=== PATIENT | female | born 1980 | race Caucasian/White ===

== ENCOUNTER → 2018-01-29 08:20 | Outpatient (CLI) | payer BC, SELFPAY ==
--- NOTE | 2018-01-29 08:22 | BI_ITS ---
MAMMOGRAPHY - BILATERAL DIAGNOSTIC REASON FOR EXAM: Female, 37 years old. Bilateral clear breast discharge. Recent right needle biopsy. PERTINENT HISTORY: Grandmother with breast cancer. TECHNIQUE: Digital bilateral breast german (3D mammographic acquisition) in the CC and MLO projections. 2-D mediolateral oblique (MLO) and craniocaudad (CC) views of both breasts were obtained. CAD: Full Field Digital Mammography with Computer Added Detection was performed. COMPARISON: Comparison is made with prior examination dated August 20, 2017 and November 28, 2016. FINDINGS: Breast Composition: There are scattered areas of fibroglandular density. Stable 6.6 mm x 7 mm well-defined nodule in the retroareolar region of the right breast. Since prior study, a tissue clip marker is seen within it in keeping with prior biopsy. There are no dominant masses or suspicious calcifications. No other significant abnormalities are identified. There has been no significant change since the prior study. BI/DIAG MAMM W/CAD, BILAT IMPRESSION: Stable bilateral diagnostic mammogram. One year follow-up recommended. (A) ASSESSMENT CATEGORY: BIRADS Category 2: Benign. A letter regarding these results will be sent to the patient by the facility within 30 days. Approximately 10% of breast cancers are not detected by mammography. A normal mammogram should not delay biopsy of a clinically suspicious abnormality. Electronically Signed: Joaquin Hartman MD at 13:48 EDT Tel [phone], Service support ,
--- NOTE | 2018-01-29 09:10 | US_ITS ---
STUDY: ULTRASOUND BREAST - RIGHT REASON FOR EXAM: Female, 37 years old. Right breast discharge. TECHNIQUE: Axial and longitudinal images of the RIGHT breast were performed with a high resolution ultrasound transducer. COMPARISON: Comparison is made with prior sonogram of the right breast dated August 20, 2017. Comparison is also made with prior mammogram done earlier in the day. FINDINGS: RIGHT Breast: There is a stable 8 mm x 5 mm x 9 mm well-defined hypoechoic nodule in the retroareolar region of the breast. This most likely represents a small fibroadenoma or complex cyst. This is unchanged. IMPRESSION: Stable examination. ASSESSMENT CATEGORY: BIRADS Category 2: Benign. A letter regarding these results will be sent to the patient by the facility within 30 days. Electronically Signed: Joaquin Hartman MD at 13:11 EDT Tel [phone], Service support , STUDY: ULTRASOUND BREAST - LEFT REASON FOR EXAM: Female, 37 years old. Left breast discharge. TECHNIQUE: Axial and longitudinal images of the LEFT breast were performed with a high resolution ultrasound transducer. COMPARISON: Comparison is made with prior mammogram done earlier in the day. FINDINGS: LEFT Breast: There is evidence of mild left retroareolar ductal dilatation. US/Breast Limited Unilateral IMPRESSION: Mild left retroareolar ductal dilatation. ASSESSMENT CATEGORY: BIRADS Category 2: Benign. A letter regarding these results will be sent to the patient by the facility within 30 days. Electronically Signed: Joaquin Hartman MD at 13:12 EDT Tel [phone], Service support ,
== END ==
LOC: OPBI 08:20
PROVIDERS: Family Provider Student in an Organized Health Care Education/Training Program; PCP Student in an Organized Health Care Education/Training Program; Visit Provider Surgery
DX: N64.52 Nipple discharge (principal); R92.8 Other abnormal and inconclusive findings on diagnostic imaging of breast
CPT/HCPCS: 76642; 77062; 77066; G0279

== ENCOUNTER → 2019-02-27 08:07 | Outpatient (CLI) | payer BC, SELFPAY ==
--- NOTE | 2019-02-27 08:18 | BI_ITS ---
MAMMOGRAPHY - BILATERAL SCREENING 3-D TOMOSYNTHESIS REASON FOR EXAM: Female, 38 years old. Bilateral Screening 3-D tomosynthesis PERTINENT HISTORY: Paternal grandmother of breast cancer at age 70-80. Maternal grandmother with breast cancer at age 70-80. Status post right needle biopsy in 2016 and left stereotactic biopsy in 2013 benign.. TECHNIQUE: 2-D mammograms and 3-D Tomosynthesis of the breast (s) were performed. CAD was performed. COMPARISON: January 29, 2018. FINDINGS: The breast composition is composed of scattered fibroglandular density. Scattered benign calcifications are seen. No dense spiculated masses or suspicious microcalcifications are identified. No architectural distortion is identified. There is no skin thickening or retraction. There is a stable, 9.4 mm well-circumscribed nodule within the anterior right breast containing a biopsy clip. A biopsy clip is seen within the region of stable architectural distortion within the superficial left upper lateral breast. These findings appear stable. There has been no significant change since the prior study. BI/SCREENING MAMM (CAD), BILAT IMPRESSION: No mammographic signs of malignancy. Routine yearly mammograms recommended. ASSESSMENT CATEGORY: BIRADS Category 2: Benign. A letter regarding these results will be sent to the patient by the facility within 30 days. FOLLOW UP RECOMMENDATION: Yearly follow up mammogram recommended. (A) Approximately 10% of breast cancers are not detected by mammography. A normal mammogram should not delay biopsy of a clinically suspicious abnormality. Electronically Signed: Ti Olivia MD at 15:11 EDT , Service support ,
== END ==
PROVIDERS: Family Provider Student in an Organized Health Care Education/Training Program; PCP Student in an Organized Health Care Education/Training Program; Referring Provider Obstetrics & Gynecology; Visit Provider Obstetrics & Gynecology
DX: Z12.31 Encounter for screening mammogram for malignant neoplasm of breast (principal); N60.89 Other benign mammary dysplasias of unspecified breast
CPT/HCPCS: 77063; 77067

== ENCOUNTER → 2020-03-22 12:18 | Outpatient (CLI) | payer BC, SELFPAY ==
--- NOTE | 2020-03-22 12:20 | BI_ITS ---
MAMMOGRAPHY - BILATERAL SCREENING REASON FOR EXAM: Female, 39 years old. Routine annual screening examination. PERTINENT HISTORY: Grandmother with breast cancer. Prior left stereotactic breast biopsy and right needle biopsy. TECHNIQUE: Digital bilateral breast oniel (3D mammographic acquisition) in the CC and MLO projections. 2-D mediolateral oblique (MLO) and craniocaudad (CC) views of both breasts were obtained. CAD: Full Field Digital Mammography with Computer Added Detection was performed. COMPARISON: Comparison is made with prior examination dated February 27, 2019 and January 30, 2008. FINDINGS: Breast Composition: There are scattered areas of fibroglandular density. There are no dominant masses or suspicious calcifications. A tissue clip marker is seen in the upper lateral aspect of the left breast. A tissue clip marker is also seen within a 7 mm nodular density in the medial retroareolar region of the right breast. No other significant abnormalities are identified. There has been no significant change since the prior study. BI/SCREEN MAMM (CAD) W/ONIEL BILAT IMPRESSION: Stable bilateral screening mammogram. Yearly follow-up mammogram recommended. (A) ASSESSMENT CATEGORY: BIRADS Category 2: Benign. A letter regarding these results will be sent to the patient by the facility within 30 days. Approximately 10% of breast cancers are not detected by mammography. A normal mammogram should not delay biopsy of a clinically suspicious abnormality. [id number] Electronically Signed: Joaquin Hartman, at 13:40 EDT , Service support ,
== END ==
PROVIDERS: PCP Student in an Organized Health Care Education/Training Program; Referring Provider Student in an Organized Health Care Education/Training Program; Visit Provider Student in an Organized Health Care Education/Training Program
DX: Z12.31 Encounter for screening mammogram for malignant neoplasm of breast (principal); Z80.3 Family history of malignant neoplasm of breast
CPT/HCPCS: 77063; 77067

== ENCOUNTER → 2021-03-27 08:42 | Outpatient (CLI) | payer BC, SELFPAY ==
--- NOTE | 2021-03-27 08:47 | BI_ITS ---
MAMMOGRAPHY - BILATERAL SCREENING REASON FOR EXAM: Female, 40 years old. Routine annual screening examination. PERTINENT HISTORY: Grandmother with breast cancer. Remote left stereotactic breast biopsy. TECHNIQUE: Digital bilateral breast oniel (3D mammographic acquisition) in the CC and MLO projections. 2-D mediolateral oblique (MLO) and craniocaudad (CC) views of both breasts were obtained. CAD: Full Field Digital Mammography with Computer Added Detection was performed. COMPARISON: Comparison is made with prior study dated 03/22/2020 and 02/27/2019. FINDINGS: Breast Composition: There are scattered areas of fibroglandular density. There are no dominant masses or suspicious calcifications. A tissue clip marker is once again seen in the upper lateral aspect of the left breast. A tissue clip marker is also seen within a 7 mm well-defined nodule in the medial retroareolar region of the right breast.. Stable benign appearing bilateral axillary nodes. No other significant abnormalities are identified. There has been no significant change since the prior study. BI/SCRN MAMM (CAD)W/ONIEL BILAT IMPRESSION: Stable bilateral screening mammogram. Yearly follow-up mammogram recommended. (A) ASSESSMENT CATEGORY: BIRADS Category 2: Benign. A letter regarding these results will be sent to the patient by the facility within 30 days. Approximately 10% of breast cancers are not detected by mammography. A normal mammogram should not delay biopsy of a clinically suspicious abnormality. [id number] Electronically Signed: Joaquin Hartman MD at 11:25 EDT , Service support ,
== END ==
PROVIDERS: PCP Student in an Organized Health Care Education/Training Program; Referring Provider Obstetrics & Gynecology; Visit Provider Obstetrics & Gynecology
DX: Z12.31 Encounter for screening mammogram for malignant neoplasm of breast (principal)
CPT/HCPCS: 77063; 77067

== ENCOUNTER → 2021-03-28 08:44 | Outpatient (CLI) | payer BC, SELFPAY ==
--- NOTE | 2021-03-28 08:46 | US_ITS ---
STUDY: ULTRASOUND BREAST - RIGHT REASON FOR EXAM: Female, 40 years old. Palpable lump in the right breast. TECHNIQUE: Axial and longitudinal images of the RIGHT breast were performed with a high resolution ultrasound transducer. # OF IMAGES: 36 COMPARISON: Comparison is made with prior ultrasound the right breast dated 01/29/2018 and prior mammogram dated 03/27/2021. FINDINGS: RIGHT Breast: The upper outer quadrant of the right breast was examined by ultrasound. No sonographic abnormality is seen. US/Breast Limited Unilateral IMPRESSION: No sonographic abnormality is seen. ASSESSMENT CATEGORY: BIRADS Category 1: Negative. A letter regarding these results will be sent to the patient by the facility within 30 days. Electronically Signed: Joaquin Hartman MD at 14:32 EDT , Service support ,
== END ==
PROVIDERS: PCP Student in an Organized Health Care Education/Training Program; Visit Provider Obstetrics & Gynecology
DX: N63.10 Unspecified lump in the right breast, unspecified quadrant (principal)
CPT/HCPCS: 76642

== ENCOUNTER → 2022-03-19 | Outpatient (CLI) | payer BC, SELFPAY ==
[2022-03-19] MEDS: 0.9% NaCl Peripheral Flush Adult/Peds IV (14:12)
[2022-03-19] MEDS: 0.9% NaCl IVPB Med Flush (250 mL) 15 ML IV (14:26)
[2022-03-19 14:28] VITALS: BP 147/82; PULSE 93; RESP 12; TEMP 36.3; O2SAT 97; BMI 50.0
[2022-03-19 15:27] VITALS: BP 127/70; PULSE 86; RESP 16; TEMP 36.5
== END | disposition home or self-care (01) ==
LOC: MEDOUTP 14:03
PROVIDERS: PCP Student in an Organized Health Care Education/Training Program; Referring Provider Obstetrics & Gynecology; Visit Provider Obstetrics & Gynecology
DX: D50.8 Other iron deficiency anemias (principal); N92.6 Irregular menstruation, unspecified
CPT/HCPCS: 96365; J1756; J7050; A4216

== ENCOUNTER → 2022-03-21 | Outpatient (CLI) | payer BC, SELFPAY ==
[2022-03-21 14:40] VITALS: BP 142/90; PULSE 111; RESP 16; TEMP 36; O2SAT 97; BMI 50.8
[2022-03-21] MEDS: 0.9% NaCl IVPB Med Flush (250 mL) 15 ML IV (15:03)
[2022-03-21] MEDS: 0.9% NaCl Peripheral Flush Adult/Peds IV (15:03)
== END | disposition home or self-care (01) ==
LOC: MEDOUTP 14:30
PROVIDERS: PCP Student in an Organized Health Care Education/Training Program; Referring Provider Obstetrics & Gynecology; Visit Provider Obstetrics & Gynecology
DX: D50.8 Other iron deficiency anemias (principal); N92.6 Irregular menstruation, unspecified
CPT/HCPCS: 96365; J1756; J7050; A4216

== ENCOUNTER → 2022-03-26 | Outpatient (CLI) | payer BC, SELFPAY ==
[2022-03-26] MEDS: 0.9% NaCl IVPB Med Flush (250 mL) 15 ML IV (14:49)
[2022-03-26] MEDS: 0.9% NaCl Peripheral Flush Adult/Peds IV (14:50)
[2022-03-26 14:51] VITALS: BP 136/79; PULSE 94; RESP 12; TEMP 36.6; O2SAT 100; BMI 50.8
[2022-03-26 15:23] VITALS: BP 135/71; PULSE 82; RESP 14; TEMP 36.2; O2SAT 99
== END | disposition home or self-care (01) ==
LOC: MEDOUTP 14:26
PROVIDERS: PCP Student in an Organized Health Care Education/Training Program; Referring Provider Obstetrics & Gynecology; Visit Provider Obstetrics & Gynecology
DX: D50.8 Other iron deficiency anemias (principal); N92.6 Irregular menstruation, unspecified
CPT/HCPCS: 96365; J1756; J7050; A4216

== ENCOUNTER → 2022-03-28 | Outpatient (CLI) | payer BC, SELFPAY ==
[2022-03-28 15:27] VITALS: BP 133/81; PULSE 50; RESP 14; TEMP 36.7; O2SAT 97; BMI 50.8
[2022-03-28] MEDS: 0.9% NaCl IVPB Med Flush (250 mL) 15 ML IV (15:29)
[2022-03-28] MEDS: 0.9% NaCl Peripheral Flush Adult/Peds IV (15:30)
[2022-03-28 16:07] VITALS: BP 128/66; PULSE 80; RESP 14; TEMP 36.6; O2SAT 98
== END | disposition home or self-care (01) ==
LOC: MEDOUTP 15:15
PROVIDERS: PCP Student in an Organized Health Care Education/Training Program; Referring Provider Obstetrics & Gynecology; Visit Provider Obstetrics & Gynecology
DX: D50.8 Other iron deficiency anemias (principal); N92.6 Irregular menstruation, unspecified
CPT/HCPCS: 96365; J1756; J7050; A4216

== ENCOUNTER → 2022-04-02 | Outpatient (CLI) | payer BC, SELFPAY ==
[2022-04-02 14:56] VITALS: BP 132/83; PULSE 84; RESP 16; TEMP 36.1; O2SAT 99; BMI 50.8
[2022-04-02] MEDS: 0.9% NaCl Peripheral Flush Adult/Peds IV (14:59)
[2022-04-02] MEDS: 0.9% NaCl IVPB Med Flush (250 mL) 15 ML IV (15:00)
[2022-04-02 15:37] VITALS: BP 134/65; PULSE 82; TEMP 36.2
== END | disposition home or self-care (01) ==
LOC: MEDOUTP 14:27
PROVIDERS: PCP Student in an Organized Health Care Education/Training Program; Referring Provider Obstetrics & Gynecology; Visit Provider Obstetrics & Gynecology
DX: D50.8 Other iron deficiency anemias (principal); N92.6 Irregular menstruation, unspecified
CPT/HCPCS: 96365; J1756; J7050; A4216

== ENCOUNTER 2022-08-08 12:20 | Day surgery (SDC) | payer BC, SELFPAY ==
--- NOTE | 2022-07-30 15:21 | PCM.HP.BLA ---
History and Physical Date of Admission: 08/08/22 Pre-Op History and Physical ? HPI: The patient is a 41 year old female presenting for pre-operative visit. She is scheduled for Hysteroscopy D&C and polypectomy with symphion and insertion of Mirena IUD, for AUB, Anemia, endometrial polyp on 08/08/22. Procedure discussed along with risks, benefits and complications. Other alternatives discussed for management. Consent form signed? Yes. ? ? PAST MEDICAL HISTORY PAST MEDICAL HISTORY Diagnosis Date ? Anemia ? ? iron deficiency ? MVP (mitral valve prolapse) ? ? POTS (postural orthostatic tachycardia syndrome) ? ? Psoriasis ? ? Vitamin D deficiency ? ? ? PAST SURGICAL HISTORY PAST SURGICAL HISTORY Procedure Laterality Date ? BX BREAST W/DEVICE 1ST LESION STEREOTACTIC GUID ? 09/21/14 ? left ? PAST SURGICAL HISTORY OF ? 1991 ? Ovarion abscess and removal right side ? PAST SURGICAL HISTORY OF ? 1996, 1999 ? right shoulder repair for dislocation ? ? ? CURRENT MEDICATIONS Current Outpatient Medications Medication Sig Dispense Refill ? Cholecalciferol, Vitamin D3, 50 mcg (2,000 unit) cap Take 1 capsule by mouth once daily. 30 capsule 5 ? Ferrous Sulfate 325 mg (65 mg iron) tablet Take 1 tablet by mouth twice daily with meals. ? 0 ? triamcinolone acetonide (KENALOG) 0.5 % cream Apply 1 application to affected area twice daily. For rash/itching. Apply sparingly. Avoid face/skin fold. 15 g 2 ? MULTI-VITAMIN ORAL Take by mouth. ? ? ? omega-3 fatty acids 1,000 mg cap Take 2 g by mouth twice daily. ? ? ? Current Facility-Administered Medications Medication Dose Route Frequency Provider Last Rate Last Admin ? iron sucrose 200 mg injection (VENOFER) 200 mg INTRAVENOUS 2/WK Jaylene Robbins MD ? ? ALLERGIES: Prilosec [Omeprazole Magnesium] ? PERSONAL HISTORY: SOCIAL HISTORY Social History ? Tobacco Use ? Smoking status: Former ? ? Types: Cigarettes ? ? Quit date: 09/16/2008 ? ? Years since quittin.8 ? Smokeless tobacco: Never ? Tobacco comments: ? ? had been rare smoker Vaping Use ? Vaping Use: Never used Substance Use Topics ? Alcohol use: Yes ? ? Comment: Occasionally ? Drug use: No ? FAMILY HISTORY: FAMILY HISTORY FAMILY HISTORY Problem Relation Age of Onset ? Multiple Sclerosis Mother ? ? Breast Cancer Maternal Grandmother 80 ? Skin Cancer Maternal Grandmother 50 ? Colon Cancer Maternal Grandfather 60 ? COPD Maternal Grandfather ? ? Breast Cancer Paternal Grandmother ? ? at 50 or 60; then again at 60 or 70 ? Heart Paternal Grandfather ? ? ? REVIEW OF SYMPTOMS: negative except as noted above PHYSICAL EXAMINATION: ? VITALS: Blood pressure 120/76, height 5' 6 (1.676 m), weight (!) 325 lb (147.4 kg), last menstrual period 07/11/2022. ? GENERAL: The patient is well nourished, well hydrated in no acute distress. , The patient is oriented to time, place, and person. NECK: full range of motion ? ? IMPRESSION: 41yo with AUB, EM polyp, anemia ? PLAN: Hysteroscopy, D&C, polypectomy, MIRENA IUD insertion ? Pt has been counseled on risks/benefits and alternatives of surgery including but not limited to anesthesia, bleeding, infection, uterine perforation with subsequent injury to pelvic structures including bowel, bladder, ureters and vessels. Pt wishes to proceed with surgery at this time. ? Mirena IUD ordered Consent signed Pre and Post op instructions reviewed will see patient at 4-6 weeks post op to check IUD placement I have reviewed and updated past medical and surgical history, medications and allergies ? Jaylene Robbins MD ?3:40 PM Office Visit on 07/29/2022 Office Visit on 07/29/2022 Note shared with patient
[2022-08-08] VITALS (8 sets, daily range): BP systolic 117–136; BP diastolic 61–73; PULSE 74–90; RESP 16; TEMP 36.6–37.1; O2SAT 94–100; BMI 52.8
[2022-08-08 13:07] LABS: Internal QC Validated? YES +Cl - CLEAR BKGD; Pregnancy, Urine Negative Negative
[2022-08-08] MEDS: Lactated Ringers 1,000 ML 15 ML IV (13:09)
[2022-08-08 13:24] LABS: Hemoglobin 9.8 g/dL (12.0-15.0); Mean Corp Hgb Conc 29.7 g/dL (32-36); Mean Corpuscular Hgb 23.5 pg (27.0-32.0); Mean Corpuscular Volume 79.1 fL (81-99); Mean Platelet Vol. 9.9 fl (6.2-12.0); Platelet Count 390 K/mm3 (150-450); RBC Distribution Width SD 40.2 fl (35.1-43.9); Red Blood Count 4.17 M/mm3 (4.2-5.4); White Blood Count 8.5 K/mm3 (4.4-11.0)
--- NOTE | 2022-08-08 14:37 | DCINST_ITS ---
Discharge Instructions Procedure D&C Diet Discharge Diet: No restrictions Activity May resume sexual activity in: 1 week Dressing / Incision Call your doctor if you observe: Fever of 101 or Higher, Inability to urinate, Using more than 1 pad per hour and Uncontrolled pain Follow Up Care Please Follow Up With: Jaylene Santamaria MD When: 1-2 weeks post OP if you need an appointment please call [phone] Test Results: Test results from this visit will be discussed in further detail at your follow- up appointment, if applicable. Discharge Plan Admission Attending Provider: Jaylene Santamaria Primary Care Provider: Leonard Chakraborty Discharge Orders/Prescriptions Prescriptions: No Action ferrous sulfate 325 mg (65 mg iron) tablet 325 mg PO TID lansoprazole [Prevacid] 30 mg capsule,delayed release(DR/EC) 30 mg PO BID PRN PRN (Reason: Heartburn) cholecalciferol (vitamin D3) 1,000 unit capsule 1,000 unit PO ONCE famotidine [Pepcid AC] 10 mg Tablet 10 mg PO PRN PRN (Reason: Heartburn) Referrals / Follow Up: Leonard Chakraborty DO [Primary Care Provider] - Disposition Disposition (needs filled in before D/C Order can be placed): Home, Self Care
--- NOTE | 2022-08-08 14:39 | PCM.OPRPT ---
Report of Operation Date of Procedure: 08/08/22 Pre-Operative Diagnosis: aub, anemia, endometrial polyp Post-Operative Diagnosis: same Surgery/Procedure Performed:: hysteroscopy, D&C, polypectomy, Mirena IUD insertion Description of Surgical Findings:: endometrial polyp noted. Mirena Placed without difficulty. fluid deficit Surgeon: Jaylene Santamaria Type of Anesthesia: MAC Specimen's removed: endometrial curettings, EM polyp Drains: none Estimated Blood Loss (mL): 5cc Fluids Replaced: 700 Description of Procedure: Informed consent was obtained the patient was taken the operating room she was placed in supine position. She was given anesthesia. She was then placed in the [facility] where she was prepped and draped in the normal sterile fashion. At this time the weighted speculum was placed in the posterior fornix of vagina. Single-tooth tenaculum was used to gently grasp the anterior lip the cervix. At this time the uterine cavity was sounded to approximately 11 cm. Gentle dilatation was performed once adequate dilatation of the cervix was achieved the hysteroscope using normal saline as a distention medium was placed. Tubal ostia visualized. endometrial polyp noted on anterior aspect othwerise endometrium is normal. Symphion resecting device used to obtain endometrial curettings and to perform polypectomy. Tissue will be sent to pathology for evaluation. Mirena IUD opened, Mirena placed without difficulty at uterus fundus, strings cut to 2.5cm. Tenaculum removed. Good hemostasis. Instrument, lap count correct x 2. Vaginal Sweep was negative. Grafts/Implants Used: Mirena IUD Procedure Start Time: 15:00 Procedure Stop Time: 15:11 Complications none Admit VTE Documentation VTE Present on Admission: Yes VTE Mechan Device Prophylaxis: SCD's VTE Pharm Prophylaxis ordered?: No
--- NOTE | 2022-08-09 | EMB_PTH ---
PATIENT: BIANCA [place] [facility] [id number] AGE/SX: 41/F ROOM: RE08/08/[address]: Dr. Jaylene Santamaria, MDDOB: 1980 BED: DIS: 08/08/2022 SPEC #: [id number] RECD: 08/09/22 13:57 STATUS: BETO IAN #: [id number] [place]: 08/09/22 00:[address]: Jaylene Santamaria DEPT: SURGICAL PATHOLOGY RECD BY: Damaso Wallace ENTERED: 08/12/22 10:10 SP TYPE: ENDOM BX/C OTHR DR: Dr. Leonard Chakraborty, DO Tissues: Endometrium, NOS Procedures: Surgery Specimen Level IV HEADER OPERATION: Hysteroscopy, D & C, polypectomy, Symphion, Mirena IUD insertion PRE-OP DIAGNOSIS: Abnormal uterine bleeding, endometrial polyp, anemia TISSUE SUBMITTED: Endometrial curettings, endometrial polyp MICROSCOPIC DIAGNOSIS Endometrial curettings, endometrial polyp, D & C and polypectomy: Polypoid fragments of endometrial tissue, may represent fragments of endometrial polyps with dyssynchronous endometrium consisting of mildly disordered proliferative endometrium and weakly secretory endometrium. Fragments of myometrium. See comment. MIGNON:mitch 08/13/2022 COMMENT Clinical correlation and appropriate follow up are necessary. Case has been reviewed in consultation with Dr. Owusu who concurs with the above diagnosis. IDC:AM MICROSCOPIC DESCRIPTION Slides are reviewed. GROSS DESCRIPTION Received in fixative is one container labeled with the patient's name and designated endometrial curettings, endometrial polyp. The specimen consists of multiple irregular fragments of kamara soft tissue mixed with blood clots that in aggregate measure 5 x 3 x 0.6 cm. The entire specimen is submitted in five cassettes. / MIGNON:mitch 08/12/2022 TC:5 CPT: 10760
== END 2022-08-08 16:34 | disposition home or self-care (01) ==
LOC: SDC 12:22 → AC 12:23
PROVIDERS: PCP Student in an Organized Health Care Education/Training Program; Referring Provider Obstetrics & Gynecology; Visit Provider Obstetrics & Gynecology
PROC: 0UB98ZZ Excision of Uterus, Via Natural or Artificial Opening Endoscopic (ICD-10-PCS; CPT 58558; principal; 2022-08-08 13:50)
DX: N93.9 Abnormal uterine and vaginal bleeding, unspecified (principal); E66.01 Morbid (severe) obesity due to excess calories; Z68.43 Body mass index [BMI] 50.0-59.9, adult; N84.0 Polyp of corpus uteri; D50.9 Iron deficiency anemia, unspecified; Z30.430 Encounter for insertion of intrauterine contraceptive device; Z87.891 Personal history of nicotine dependence
CPT/HCPCS: 58558; 58300; 00952; 81025; 85027; 88305; J7120

== ENCOUNTER 2023-03-23 17:13 | Emergency (ER) | payer BC, SELFPAY ==
[2023-03-23 17:13] VITALS: BP 163/104; PULSE 124; RESP 18; TEMP 36.9; O2SAT 98; BMI 50.8
--- NOTE | 2023-03-23 17:32 | EDS_ITS ---
HPI <NETTE Kearns - Last Filed: 03/23/23 18:04> History of Present Illness Chief Complaint: Eye Problem Narrative Narrative: 42-year-old female states yesterday both eyes were pink with some yellow exudate upon waking up and she thought she was developing pinkeye. She went to [facility] and was given Polytrim drops. After using these 3 times yesterday she woke up this morning with a lot of swelling and puffiness around her eyes. Both eyes appeared bright red and are still burning. She is having clear tearing but no more exudate since the one time yesterday. She went back to urgent care was given olapatadine drops and oral prednisone to treat a potential allergic reaction to the drops. She still just having a lot of discomfort which prompted her to come in. She does not wear glasses or contacts. She has mildly blurry vision but no vision loss. No fever or chills. PFSH <NETTE Kearns - Last Filed: 03/23/23 18:04> [facility] Medical History (Updated 03/23/23 @ 18:04 by NETTE Kearns) Anemia Anxiety Gastric reflux Heartburn History of echocardiogram Leg cramps Mitral valve prolapse Non-smoker Psoriasis Home Medications cholecalciferol (vitamin D3) 25 mcg (1,000 unit) capsule 1,000 unit PO ONCE 11/14/17 [History Last Taken Unknown] ferrous sulfate 325 mg (65 mg iron) tablet 325 mg PO TID 11/14/17 [History Last Taken Unknown] lansoprazole 30 mg capsule,delayed release (Prevacid) 30 mg PO BID PRN PRN Heartburn 11/14/17 [History Last Taken Unknown] famotidine 10 mg tablet (Pepcid AC) 10 mg PO PRN PRN Heartburn 08/02/22 [History Last Taken Unknown] ofloxacin 0.3 % eye drops See Rx Instructions EACH EYE .COMPLEX #5 mL 03/23/23 [Rx Last Taken Unknown] Allergy/AdvReac Type Severity Reaction Status Date / Time omeprazole [From Prilosec] Allergy Other Verified 08/08/22 13:05 Family History (Updated 11/14/17 @ 15:54 by Jory Ma) Grandmother Breast cancer Mother Multiple sclerosis Surgical History H/O shoulder surgery Ovarian abscess Social History (Updated 12/09/17 @ 11:17 by Silvina Underwood NP, [facility] ADMINISTRATOR-[facility]) Smoking Status: Never smoker alcohol intake: current details: social substance use type: does not use caffeine: Yes what type of physical activity do you participate in: yoga frequency: 1-2 times per week seatbelt use: always do you feel safe at home: Yes additional social history: [employer]- 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 Eyes: Positive for blurry vision Neuro: Negative for headache. EXAM <NETTE Kearns - Last Filed: 03/23/23 18:04> Physical Exam Narrative Exam Narrative: CONST: Patient sitting in no acute distress. EYES: Bilateral periorbital soft tissue swelling, both eyes appear bright red. PERRLA, EOMI TN intact without pain. No exophthalmos. There is clear tearing but no purulent drainage or matting. No signs of preseptal cellulitis. No chemosis. ENT: Normal inspection, moist mucous membranes. NECK: Normal inspection. RESP: No respiratory distress, CTAB. CVS: Regular rate and rhythm, no murmur, no gallop. SKIN: Color normal, no rash, warm, dry, intact. EXTREMITIES: Normal appearance, no pedal edema. NEURO: Oriented x4. PSYCH: Normal affect. Const Vital Signs: 03/23/23 17:13 Temperature 98.5 F Temperature Source Temporal Pulse Rate 124 H Respiratory Rate 18 Blood Pressure 163/104 H Blood Pressure Mean 123 Pulse Ox 98 Oxygen Delivery Method Room Air MDM <NETTE Kearns - Last Filed: 03/23/23 18:04> MDM MDM Narrative Medical decision making narrative: Patient has what sounds like bilateral conjunctivitis yesterday and after using Polytrim drops developed bright red eyes, burning, puffiness and swelling around the eyes. She is not having fever or systemic symptoms. She does appear to have a lot of swelling that looks allergic in nature around her eyes, not like preseptal cellulitis. Both eyes are bright red with clear tearing. She has no pain with extraocular motion so I do not not think this is orbital cellulitis. She does not have pain with light dilating her pupils I have low concern for iritis. I applied tetracaine and fluorescein stained and examined both eyes with the slit lamp. There is no evidence of abrasions, ulcers, foreign body. Clear anterior chambers. At this time I suspect she may have had an allergic reaction to the Polytrim drops. She is already on allergic drops and prednisone and I recommended Benadryl and ice for symptomatic treatment. Since she likely has underlying conjunctivitis I prescribed ofloxacin drops and provided an ophthalmology referral. She was discharged in stable condition. Differential: Conjunctivitis, preseptal cellulitis, orbital cellulitis, iritis <Dr. Lebron Sauceda, DO - Last Filed: 03/23/23 17:57> [facility] Treatment and Re-Evaluation Narrative: I have personally performed a face to face assessment of the patient and have reviewed the LACHELLE Note. I performed a substantive portion of the visit including all aspects of the following. My clifford findings include: History: Patient presents with bilateral eye redness and swelling that became worse today. Patient states she was seen in urgent care yesterday and was st arted on antibiotic drops for possible conjunctivitis. Patient states she took 3 doses of the drops last night. Patient states she woke up today and the redness and swelling is worse today. Patient states the drainage today has been watery only. Patient denies any purulent drainage. Patient denies any foreign body sensation. Exam: Pupils are equal, round, and reactive to light bilaterally. Extraocular muscles are intact. There is no pain with extraocular motion. Conjunctiva is injected bilaterally. There is no purulent drainage noted. There are no foreign bodies noted. Anterior chamber was clear. There is no hyphema. There is mild edema of the upper and lower lids. There is no erythema or warmth. Medical Decision Making: Tetracaine and fluorescein dye was applied. There is no corneal abrasion or foreign body noted on slit-lamp examination. Differential diagnosis includes allergic conjunctivitis, viral conjunctivitis, and bacterial conjunctivitis. Patient was instructed to continue the present anti-inflammatory drops. Patient was instructed to stop the Polytrim drops. Patient was given Floxin ophthalmic drops. Patient was given a referral for ophthalmology. Patient was instructed to follow-up in 2 to 3 days. Patient was instructed return if worse in any way. Patient understood and was agreeable with the plan. All questions were answered. Discharge Plan Triage Chief Complaint: Eye Problem ED Midlevel Provider: Conchita Bro ED Provider: Lebron Sauceda Dx/Rx/DC Orders Clinical Impression: Allergic reaction, Bilateral conjunctivitis Prescriptions: New ofloxacin 0.3 % drops See Rx Instructions .ROUTE .COMPLEX Qty: 5 0RF Rx Instructions: put 1-2 drps into affected eye(s) every 2-4 h x 2 days, then 1-2 drps 4 times/day days 3-7 No Action ferrous sulfate 325 mg (65 mg iron) tablet 325 mg PO TID lansoprazole [Prevacid] 30 mg capsule,delayed release(DR/EC) 30 mg PO BID PRN PRN (Reason: Heartburn) cholecalciferol (vitamin D3) 1,000 unit capsule 1,000 unit PO ONCE famotidine [Pepcid AC] 10 mg Tablet 10 mg PO PRN PRN (Reason: Heartburn) Primary Care Provider: Leonard Chakraborty Referrals: Leonard Chakraborty DO [Primary Care Provider] - Nicholas Desouza MD [Med Staff - Active Staff] - Activity Restrictions/Additional Instructions: Likely had an allergic reaction to the Polytrim eyedrops were prescribed. I would keep using the steroids and drops they gave you which are anti-allergy. Since you likely had an underlying conjunctivitis I prescribed a new antibiotic Called ofloxacin. You can also take Benadryl [id number] for your symptoms. Please follow-up with an script supervisor on Friday Disposition Disposition: Home, Self Care
[2023-03-23] MEDS: Fluorescein 1 MG STRIP 1 STRIP EACH EYE (17:44)
[2023-03-23] MEDS: Tetracaine 0.5% Ophthalmic Bottle 1 DRP LEFT EYE (17:44)
[2023-03-23 18:25] VITALS: BP 124/77; PULSE 62; RESP 15; O2SAT 98
== END 2023-03-23 18:26 | disposition home or self-care (01) ==
LOC: ED 18:06
PROVIDERS: Emergency Provider Emergency Medicine; PCP Student in an Organized Health Care Education/Training Program; Visit Provider Emergency Medicine
DX: H10.13 Acute atopic conjunctivitis, bilateral (principal); T78.40XA Allergy, unspecified, initial encounter; X58.XXXA Exposure to other specified factors, initial encounter
CPT/HCPCS: 99283

== ENCOUNTER → 2024-01-05 | Outpatient (CLI) | payer BC, SELFPAY ==
--- NOTE | 2024-01-05 12:45 | RAD_ITS ---
STUDY: X-RAY - ABDOMEN/PELVIS REASON FOR EXAM: Female, 43 years old. Displacement of intrauterine contraceptive device, initial encoun TECHNIQUE: 3 AP supine views of the abdomen and pelvis. COMPARISON: None. FINDINGS: Normal visualized lung bases. There is an unremarkable bowel gas pattern. There is no visualized intrauterine device on this study. Normal soft tissue structures. Normal visualized osseous structures. RAD/Abdomen Single View IMPRESSION: 1. Negative x-ray examination of the abdomen and pelvis. Electronically Signed: Dominic Ernst MD at 12:45 EDT ,
--- OUTSIDE RECORDS SUMMARY | 2024-01-05 17:34 | XMS RPT_ITS | CCD ---
Author Name Unknown Address [address] [place] [address] Organization [facility] Care Team Providers Care Electro Mechanical Technician Name Role Phone Leonard Hernández DO Primary Care Provider LEONARD HERNÁNDEZ DO Primary Care Physician Leonard Hernández DO Primary Care Provider AMEYA HAUSER Attending Unavailable HERNÁNDEZ, LEONARD L Primary Care Unavailable HERNÁNDEZ, LEONARD L Primary Care Unavailable HERNÁNDEZ, LEONARD L Primary Care Unavailable CLARISSA, AMEYA Referring Unavailable HERNÁNDEZ, LEONARD L Primary Care Unavailable CLARISSA, AMEYA Referring Unavailable HERNÁNDEZ, LEONARD L Primary Care Unavailable HERNÁNDEZ, LEONARD L Primary Care Unavailable CLARISSA, AMEYA Referring Unavailable HERNÁNDEZ, LEONARD L Primary Care Unavailable CLARISSA, AMEYA Referring Unavailable HERNÁNDEZ, LEONARD L Primary Care Unavailable CLARISSA, AMEYA Referring Unavailable HERNÁNDEZ, LEONARD L Primary Care Unavailable JAYLENE REDMOND Referring Unavail able ERASMO LAL Attending Unavailable HERNÁNDEZ, LEONARD L Primary Care Unavailable HERNÁNDEZ, LEONARD L Primary Care Unavailable CLARISSA, AMEYA Referring Unavailable HERNÁNDEZ, LEONARD L Primary Care Unavailable HERNÁNDEZ, LEONARD L Primary Care Unavailable HERNÁNDEZ, LEONARD L Primary Care Unavailable MARIA G TONEY Attending Unavailable CLARISSA, AMEYA Referring Unavailable HERNÁNDEZ, LEONARD L Primary Care Unavailable CLARISSA, AMEYA Attending Unavailable HERNÁNDEZ, LEONARD L Primary Care Unavailable HERNÁNDEZ DO, LEONARD Primary Care Unavailable CHRISTIAN CLEARY, DR ERIN Vegas Attending Destiny cardenas Allergies Allergy Classification Reported Allergen(s) Allergy Type Date of Onset Reaction(s) Facility (20 sources) Omeprazole; Translations: [OMEPRAZOLE MAGNESIUM] Drug Allergy 01-01-2016 Itching [facility] Work Phone: (12 sources) Polymyxin B / Trimethoprim; Translations: [POLYMYXIN B SULF-TRIMETHOPRI M] Drug Allergy 03-28-2023 Other: See Comments [facility] Medications Current Medications Medication Drug Class(es) Dates Sig (Normalized) Sig (Original) Multivitamin preparation (1 source) Start: 04-27-2008 multivitamin PO, Daily, 0 Refill(s), current med (Hx) Start Date: 04/27/08 Status: Ordered olopatadine 1 mg/ml ophthalmic solution (3 sources) Histamine-1 Receptor Inhibitor Start: 03-23-2023 End: 04-22-2023 take 1 drop(s) into the eye(s) twice daily olopatadine (PATANOL) 0.1 % ophthalmic solution Use 1 Drop in both eyes twice daily for 30 days. 5 mL 0 03/23/2023 04/22/2023 Active Completed/Discontinued Medications Medication Drug Class(es) Dates Sig (Normalized) Sig (Original) cholecalciferol 0.05 mg oral capsule (20 sources) Vitamin D Start: 05-14-2021 take 1 capsule by mouth once daily Cholecalciferol, Vitamin D3, 50 mcg (2,000 unit) cap Indications: Vitamin D deficiency Take 1 capsule by mouth once daily. 30 capsule 5 05/14/2021 Active Problems Active Problems Problem Classification Problem Date Documented Da te Episodic/Chronic Abdominal pain (2 sources) Upper abdominal pain; Translations: [Upper abdominal pain, unspecified] Onset: 3 10-10-2023 Episodic Anxiety disorders (20 sources) Generalized anxiety disorder; Translations: [Generalized anxiety disorder] Onset: 6 11-08-2015 Chronic Benign neoplasm of uterus (1 source) Uterine leiomyoma; Translations: [Leiomyoma of uterus, unspecified] Episodic Contraceptive and procreative management (1 source) Presence of (intrauterine) contraceptive device; Translations: [IUD (intrauterine device) in place] Onset: 4 Episodic Deficiency and other anemia (5 sources) Iron deficiency anemia due to blood loss; Translations: [Iron deficiency anemia secondary to blood loss (chronic)] Chronic Deficiency and other anemia (3 sources) Iron deficiency anemia; Translations: [Iron deficiency anemia, unspecified] Episodic Esophageal disorders (20 sources) Gastroesophageal reflux disease without esophagitis; Translations: [Gastro-esophageal reflux disease without esophagitis] Onset: 6 11-08-2015 Chronic Inflammation; infection of eye (except that caused by tuberculosis or sexually transmitteddisease) (1 source) Allergic conjunctivitis of bilateral eyes; Translations: [Acute atopic conjunctivitis, bilateral] Episodic Menopausal disorders (1 source) Excessive bleeding in the premenopausal period; Translations: [Excessive bleeding in premenopausal period] Onset: 4 Chronic Menstrual disorders (20 sources) Irregular periods; Translations: [Irregular menstruation, unspecified] Onset: 8 04-07-2018 Chronic Nonmalignant breast conditions (1 source) Fibrocystic changes of bilateral breasts; Translations: [Diffuse cystic mastopathy of right breast] Chronic Nutritional deficiencies (20 sources) Vitamin D deficiency; Translations: [Vitamin D deficiency, unspecified] Onset: 8 Chronic Other connective tissue disease (2 sources) Spasm; Translations: [Other muscle spasm] Episodic Other female genital disorders (1 source) Heavy episode of vaginal bleeding; Translations: [Abnormal uterine and vaginal bleeding, unspecified] Chronic Other female genital disorders (5 sources) Abnormal uterine bleeding; Translations: [Abnormal uterine and vaginal bleeding, unspecified] Chronic Other female genital disorders (1 source) Polyp of corpus uteri; Translations: [Polyp of corpus uteri] Episodic Other gastrointestinal disorders (1 source) Malabsorption - iron; Translations: [Other intestinal malabsorption] 10-14-2023 Chronic Other hereditary and degenerative nervous system conditions (1 source) Motor neuron disease; 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, unspecified] 12-24-2023 Chronic Other inflammatory condition of skin (1 source) Psoriasis; Translations: [Psoriasis, unspecified] Chronic Other inflammatory condition of skin (1 source) Psoriasis, unspecified; Translations: [Psoriasis] Onset: 3 Chronic Other liver diseases (1 source) Liver disease, unspecified; Translations: [Liver lesion, right lobe] Onset: 3 Chronic Other nervous system disorders (2 sources) Muscle twitch; Translations: [Fasciculation] Episodic Other nervous system disorders (1 source) Disorder of smell; Translations: [Unspecified disturbances of smell and taste] 12-24-2023 Episodic Other nutritional; endocrine; and metabolic disorders (20 sources) Body mass index 40+ - severely obese; Translations: [Morbid (severe) obesity due to excess calories] Onset: 8 01-26-2018 Chronic Other nutritional; endocrine; and metabolic disorders (20 sources) Morbid obesity; Translations: [Morbid (severe) obesity due to excess calories] Onset: 8 04-07-2018 Chronic Other screening for suspected conditions (not mental disorders or infectious disease) (1 source) Imaging result abnormal; Translations: [Abnormal findings on diagnostic imaging of other specified body structures] 12-04-2023 Chronic Other skin disorders (1 source) Loss of hair; Translations: [Nonscarring hair loss, unspecified] Episodic Other upper respiratory infections (1 source) Sore throat symptom; Translations: [Acute pharyngitis, unspecified] Episodic Residual codes; unclassified (2 sources) FH: Multiple sclerosis; Translations: [Family history of epilepsy and other diseases of the nervous system] Episodic Residual codes; unclassified (1 source) At risk of breast cancer; Translations: [Other specified personal risk factors, not elsewhere classified] Episodic Residual codes; unclassified (1 source) Family history of breast cancer; Translations: [Family history of malignant neoplasm of breast] Episodic Past or Other Problems Problem Classification Problem Date Documented Da te Episodic/Chronic Deficiency and other anemia (20 sources) Anemia; Translations: [Anemia, unspecified] Onset: 04-07-2018 04-07-2018 Episodic Deficiency and other anemia (1 source) Other iron deficiency anemias; Translations: [Other iron deficiency anemia] Onset: 04-07-2018 Episodic Deficiency and other anemia (1 source) Anemia, unspecified; Translations: [Anemia, unspecified type] Onset: 04-07-2018 Episodic Deficiency and other anemia (1 source) Iron deficiency anemia, unspecified; Translations: [Iron deficiency anemia, unspecified iron deficiency anemia type] Onset: 04-07-2018 Episodic Lymphadenitis (2 sources) Axillary lymphadenopathy; Translations: [Localized enlarged lymph nodes] Onset: 01-01-2023 Episodic Mycoses (20 sources) Candidiasis of skin; Translations: [Candidiasis of skin and nail] Onset: 04-07-2018 04-07-2018 Episodic Other and unspecified benign neoplasm (20 sources) Lipoma of right lower limb; Translations: [Benign lipomatous neoplasm of skin and subcutaneous tissue of right leg] Onset: 04-07-2018 04-07-2018 Episodic Other connective tissue disease (20 sources) Muscle pain; Translations: [Myalgia, unspecified site] Onset: 11-08-2015 11-08-2015 Episodic Other connective tissue disease (1 source) Other muscle spasm; Translations: [Muscle spasm] Onset: 01-01-2023 Episodic Other connective tissue disease (1 source) Myalgia, unspecified site; Translations: [Muscle ache] Onset: 01-01-2023 Episodic Other nervous system disorders (1 source) Fasciculation; Translations: [Muscle twitch] Onset: 01-01-2023 Episodic Other non-traumatic joint disorders (20 sources) Multiple joint pain; Translations: [Pain in unspecified joint] Onset: 11-08-2015 11-08-2015 Episodic Other non-traumatic joint disorders (1 source) Pain in unspecified joint; Translations: [Arthralgia of multiple sites] Onset: 11-08-2015 Episodic Other screening for suspected conditions (not mental disorders or infectious disease) (20 sources) Mammography abnormal; Translations: [Other abnormal and inconclusive findings on diagnostic imaging of breast] Onset: 09-16-2014 09-16-2014 Episodic Residual codes; unclassified (20 sources) Flushing; Translations: [Flushing] Onset: 04-07-2018 04-07-2018 Episodic Residual codes; unclassified (1 source) Family history of epilepsy and other diseases of the nervous system; Translations: [Family history of MS (multiple sclerosis)] Onset: 01-01-2023 Episodic Results Test Name Value Interpretation Reference Range Facil ity Vital Signs Date Time Vital Sign Value Performing Clinician Facility 12-24-2023 08:08-0500 Body temperature 97.59 [degF] Erasmo Lal APRN.CNP Work Phone: [facility] 12-24-2023 08:08-0500 Body weight 143.43 kg Erasmo Lal APRN.CNP Work Phone: [facility] 12-24-2023 08:08-0500 Diastolic blood pressure 82 mm[Hg] Erasmo Lal APRN.CNP Work Phone: [facility] 12-24-2023 08:08-0500 Heart rate 94 /min Erasmo Heardutzman ORTHOPEDIC SPECIALIST.TURRET LATHE SET UP OPERATOR Work Phone: [facility] 12-24-2023 08:08-0500 SaO2% (BldA) [Mass fraction] 100 % Erasmo Lal ORTHOPEDIC SPECIALIST.TURRET LATHE SET UP OPERATOR Work Phone: [facility] 12-24-2023 08:08-0500 Systolic blood pressure 132 mm[Hg] Erasmo Heardutzman ORTHOPEDIC SPECIALIST.TURRET LATHE SET UP OPERATOR Work Phone: [facility] 10-07-2023 15:48-0500 Body temperature 97.88 [degF] DR ERIN GONZALES MD [facility] 10-07-2023 15:48-0500 Diastolic Blood Pressure Non-Invasive 85 mm[Hg] DR ERIN GONZALES MD [facility] 10-07-2023 15:48-0500 Heart rate 96 /min DR ERIN GONZALES MD [facility] 10-07-2023 15:48-0500 Respiratory rate 18 /min DR ERIN GONZALES MD [facility] 10-07-2023 15:48-0500 Systolic Blood Pressure Non-Invasive 141 mm[Hg] DR ERIN GONZALES MD [facility] 03-28-2023 16:08-0400 Body temperature 98.01 [degF] Davy Marks ORTHOPEDIC SPECIALIST.TURRET LATHE SET UP OPERATOR Work Phone: [facility] 03-28-2023 16:08-0400 Body weight 153.13 kg Davy Marks ORTHOPEDIC SPECIALIST.TURRET LATHE SET UP OPERATOR Work Phone: [facility] 03-28-2023 16:08-0400 Diastolic blood pressure 74 mm[Hg] Davy Marks ORTHOPEDIC SPECIALIST.TURRET LATHE SET UP OPERATOR Work Phone: [facility] 03-28-2023 16:08-0400 Heart rate 88 /min Davy Pendlebury ORTHOPEDIC SPECIALIST.TURRET LATHE SET UP OPERATOR Work Phone: [facility] 03-28-2023 16:08-0400 Respiratory rate 18 /min Davy Suzannalynn ORTHOPEDIC SPECIALIST.TURRET LATHE SET UP OPERATOR Work Phone: [facility] 03-28-2023 16:08-0400 SaO2% (BldA) [Mass fraction] 100 % Davy Suzannabury ORTHOPEDIC SPECIALIST.TURRET LATHE SET UP OPERATOR Work Phone: [facility] 03-28-2023 16:08-0400 Systolic blood pressure 130 mm[Hg] Davy Suzannabury ORTHOPEDIC SPECIALIST.TURRET LATHE SET UP OPERATOR Work Phone: [facility] 03-23-2023 09:24-0400 Body temperature 97.81 [degF] Krislyn Aberegg PA Work Phone: [facility] 03-23-2023 09:24-0400 Body weight 151.41 kg Krislyn Aberegg PA Work Phone: [facility] 03-23-2023 09:24-0400 Diastolic blood pressure 82 mm[Hg] Krislyn Aberegg PA Work Phone: [facility] 03-23-2023 09:24-0400 Heart rate 88 /min Krislyn Aberegg PA Work Phone: [facility] 03-23-2023 09:24-0400 Respiratory rate 16 /min Krislyn Aberegg PA Work Phone: [facility] 03-23-2023 09:24-0400 SaO2% (BldA) [Mass fraction] 99 % Krislyn Aberegg PA Work Phone: [facility] 03-23-2023 09:24-0400 Systolic blood pressure 128 mm[Hg] Krislyn Aberegg PA Work Phone: [facility] 01-01-2023 16:07-0500 Body weight 151.23 kg Erasmo Lal ORTHOPEDIC SPECIALIST.TURRET LATHE SET UP OPERATOR Work Phone: [facility] 01-01-2023 16:07-0500 Diastolic blood pressure 86 mm[Hg] Erasmo Romeroman ORTHOPEDIC SPECIALIST.TURRET LATHE SET UP OPERATOR Work Phone: [facility] 01-01-2023 16:07-0500 Heart rate 115 /min Erasmo Romeroman ORTHOPEDIC SPECIALIST.TURRET LATHE SET UP OPERATOR Work Phone: [facility] 01-01-2023 16:07-0500 SaO2% (BldA) [Mass fraction] 99 % Erasmorashmi Romeroman ORTHOPEDIC SPECIALIST.TURRET LATHE SET UP OPERATOR Work Phone: [facility] 01-01-2023 16:07-0500 Systolic blood pressure 120 mm[Hg] Erasmo Romeroman ORTHOPEDIC SPECIALIST.TURRET LATHE SET UP OPERATOR Work Phone: [facility] 07-29-2022 15:07-0400 Body height 167.6 cm Jaylene Robbins MD Work Phone: [facility] 07-29-2022 15:07-0400 Body weight 147.42 kg Jaylene Robbins MD Work Phone: [facility] 07-29-2022 15:07-0400 Diastolic blood pressure 76 mm[Hg] Jaylene Robbins MD Work Phone: [facility] 07-29-2022 15:07-0400 Systolic blood pressure 120 mm[Hg] Jaylene Robbins MD Work Phone: [facility] 04-05-2022 08:33-0400 Body weight 146.06 kg Katarina Hernandez MD Work Phone: [facility] 04-05-2022 08:33-0400 Diastolic blood pressure 78 mm[Hg] Katarina Hernandez MD Work Phone: [facility] 04-05-2022 08:33-0400 Systolic blood pressure 122 mm[Hg] Katarina Hernandez MD Work Phone: [facility] 03-08-2022 09:52-0400 Body weight 146.06 kg Jaylene Robbins MD Work Phone: [facility] 03-08-2022 09:52-0400 Diastolic blood pressure 80 mm[Hg] Jaylene Robbins MD Work Phone: [facility] 03-08-2022 09:52-0400 Systolic blood pressure 132 mm[Hg] Jaylene Robbins MD Work Phone: [facility] Encounters Encounter Date Encounter Type Care Provider Facility Start: 12-24-2023 Telephone encounter Leonard romero DO Work Phone: [facility] Procedures Date Procedure Procedure Detail Performing Clinician Start: 04-23-2023 Mammography Maria G Toney ORTHOPEDIC SPECIALIST.TURRET LATHE SET UP OPERATOR Work Phone: Start: 03-28-2023 STREP A MOLECULAR (POC) Davy Marks ORTHOPEDIC SPECIALIST.TURRET LATHE SET UP OPERATOR Work Phone: Start: 06-20-2022 Bx breast w/device 1 st lesion stereotactic guid Katie Osuna MD Work Phone: Start: 05-29-2022 Us breast uni real t drake with image limited Jaylene Robbins MD Work Phone: Start: 05-29-2022 NORBERT DIAG W ONIEL RT Becky Robbins MD Work Phone: Start: 04-25-2022 NORBERT SCREENING W ONIEL Ma aliza Toney ORTHOPEDIC SPECIALIST.TURRET LATHE SET UP OPERATOR Work Phone: Start: 04-25-2022 Mammography Screen Wst r Start: 04-17-2022 Us pelvic nonobstetr ic real-time image complete Katarina Hernandez MD Work Phone: Start: 03-27-2021 Mammography Leonard jiménez DO Work Phone: Start: 04-07-2018 Adult depression scr eening assessment Leonard Hernández DO Work Phone: Plan of Treatment Date Care Activity Detail Author Start: 08-17-2024 Urine microalbumin profile [facility] Start: 04-23-2024 Mammography [facility] Start: 04-23-2024 Screening for malign ant neoplasm of breast Mammogram Screening [facility] Start: 12-24-2023 End: 03-24-2024 CBC W Auto Differential panel - Blood CBC + DIFF Lab Routine Iron deficiency anemia due to chronic blood loss Muscle twitch Muscle ache Expected: 12/24/2023, Expires: 03/24/2024 [facility] Work Phone: Immunizations Immunization Date Immunization Notes Care Provider Fa cility 01-12-2021 SARS-CoV-2 (COVID-19 ) mRNA-1273 vaccine; Translations: [Moderna COVID-19 Vaccine] DR ERIN GONZALES MD [facility] 12-15-2020 SARS-CoV-2 (COVID-19 ) mRNA-1273 vaccine; Translations: [Moderna COVID-19 Vaccine] DR ERIN GONZALES MD [facility] 08-27-2019 influenza, injectabl e, quadrivalent, contains preservative Leonard Hernández DO Work Phone: [facility] 08-27-2019 influenza virus vaccine, unspecified formulation Leonard Hernández DO Work Phone: [facility] 08-14-2018 influenza, injectabl e, quadrivalent, contains preservative Leonard Hernández DO Work Phone: [facility] Work Phone: 11-01-2016 influenza, injectabl e, quadrivalent, contains preservative Leonard Hernández DO Work Phone: [facility] Work Phone: 08-17-2014 tetanus toxoid, reduced diphtheria toxoid, and acellular pertussis vaccine, adsorbed Leonard Hernández DO Work Phone: [facility] Work Phone: 02-07-2006 tetanus toxoid, adsorbed Leonard Hernández DO Work Phone: [facility] Work Phone: Payers Date Payer Category Payer Unknown [id number] 2013 Unknown [employer] PPO OOS [id number] 2013-Present [phone] [address] [place] [address] PPO [id number] 2013 Unknown [id number] 1980 Unknown [id number] Social History Date Type Detail Facility Start: 09-16-2014 End: 01-01-2023 Tobacco smoking status NHIS Ex-smoker [facility] End: 09-16-2008 History of tobacco use Current smoker [facility] End: 09-16-2008 History of tobacco use Cigarette Smoker [facility] Start: 01-01-2022 End: 12-24-2023 Alcohol intake Current drinker of alcohol (finding) [facility] Start: 11-09-2021 History SDOH Alcohol Frequency 2 [facility] Start: 11-09-2021 History SDOH Alcohol Std Drinks 1 [facility] Start: 11-09-2021 History SDOH Social Connections Phone 4 [facility] Start: 11-09-2021 History SDOH Social Connections Get Together 3 [facility] Start: 11-09-2021 History SDOH Stress 5 [facility] Start: 1980 Sex Assigned At Not on file [facility] Start: 03-26-2022 End: 07-29-2022 Exposure to SARS-CoV-2 (event) Not sure [facility] Start: 09-16-2014 End: 01-01-2023 Tobacco use and exposure Smokeless tobacco non-user [facility] Start: 01-01-2023 Tobacco Comment had been rare smoker [facility] Start: 11-09-2021 End: 04-23-2023 History of Social function [facility]ner Start: 11-09-2021 End: 04-23-2023 Social connection and isolation panel [facility] Do you belong to any clubs or organizations such as tenriism groups, unions, fraternal or athletic groups, or school groups? No [facility] Are you now , , , , never or living with a partner? [facility] How often to you hav e a drink containing alcohol? Monthly or less [facility] How many standard dr inks containing alcohol do you have on a typical day? 1 or 2 [facility] How often do you hav e 6 or more drinks on 1 occasion? Never [facility] How hard is it for y ou to pay for the very basics like food, housing, medical care, and heating Not very hard [facility] Adult Depression Scr eening Assessment 0 [facility] Do you feel stress - tense, restless, nervous, or anxious, or unable to sleep at night because your mind is troubled all the time - these days [OSQ] Very much [facility] (I/We) worried wheth er (my/our) food would run out before (I/we) got money to buy more. Never true [facility] Tobacco smoking status [facility] Medical Equipment Procedure Code Equipment Code Equipment Origin al Text Equipment Identifier Dates Stereo Bx Right Breast Stop Light Clip Placed [id number] Start: 06-20-2022 Clinical Notes 02-25-2022 to 12-24-2023 Telephone Encounter - Leny Pitts LPN - 12/24/2023 2:44 PM Erasmo Richards APRN.TIFFANY - 12/24/2023 8:27 AM ESTTelephone Encounter - Keya Reina - 10/14/2023 2:20 PM EST Note Date & Type Note Facility 12-24-2023 Miscellaneous Notes Images from the original note were not included. Prior authorization approved Payer: [facility] [phone] Your PA request has been approved. Additional information will be provided in the approval communication. (Message 1143) Approval Details Authorized from December 24, 2023 to March 23, 2024 Electronic appeal: Not supported View History Notes Time User Attachment Attachment received from payer. 12/24/2023 2:38 PM [facility], Rx Priorauth In Document Medication Being Authorized Phentermine HCl (ADIPEX-P) 37.5 mg tablet Take 1 tablet by mouth once daily for 90 days. BMI 51.04 Dispense: 30 tablet Refills: 2 Start: 12/24/2023 End: 03/23/2024 Class: Normal Diagnoses: Morbid obesity with BMI of 50.0-59.9, adult (HCC) This order has been released to its destination. To be filled at: [facility] [id number] [place] [address] - [address] [facility] [phone] [id number] documented in this encounter [facility] 12-24-2023 History of Presen t illness Narrative Chief Complaint Patient presents with: phantom smell: X couple weeks HPI Modesta Corcoran is a 43 year old female who presents here today for Above Complaints.. Currently: Random weird perfume or potpourri smell. Can still smell normally. Can go away for 3 days or so. Stays for a few minutes. Has not personally been sick, but has been around people that are sick. Feels like she always has fluid in her ears. Mother has hx MS. Sister has lesions on the brain that they are monitoring yearly, but not classified as MS at this point. Vision is good far away, but has noticed difficult closer. For the past 6 years will get muscle twitching-right arm does this the most and lasts a few days- and legs will feel achy. Had a gallbladder attack in September. An MRI showed a cyst on her kidney and pancreas that will be monitored. Will be having a hysterectomy with [place] physician. Past medical history, appointments, medications, allergies reviewed. Previous Medical History PAST MEDICAL HISTORY Diagnosis Date Anemia iron deficiency MVP (mitral valve prolapse) POTS (postural orthostatic tachycardia syndrome) Psoriasis Vitamin D deficiency Previous Surgical History PAST SURGICAL HISTORY Procedure Laterality Date BX BREAST W/DEVICE 1ST LESION STEREOTACTIC GUID 09/21/2014 left D&C, DIAG AND/OR THERAPEUTIC 08/08/2022 polypectomy HYSTEROSCOPY, DIAGNOSTIC (SEPARATE 08/08/2022 Mirena IUD insertion PAST SURGICAL HISTORY OF 10/27/1991 Ovarion abscess and removal right side PAST SURGICAL HISTORY OF 1999 right shoulder repair for dislocation Family History FAMILY HISTORY Problem Relation Age of Onset Multiple Sclerosis Mother Breast Cancer Maternal Grandmother 80 Skin Cancer Maternal Grandmother 50 Colon Cancer Maternal Grandfather 60 COPD Maternal Grandfather Breast Cancer Paternal Grandmother at 50 or 60; then again at 60 or 70 Heart Paternal Grandfather Patient Allergies ALLERGIES Allergen Reactions Polytrim [Polymyxin* Other: See Comments Bilateral eye swelling, corneal damage. Prilosec [Omeprazol* Itching possibly - might have been due to a spice she had eaten. Current Medications Current Outpatient Medications on File Prior to Visit Medication Sig MAGNESIUM CHLORIDE ORAL Take 1 tablet by mouth once daily. famotidine (PEPCID) 40 mg tablet Take 1 tablet by mouth once daily. triamcinolone acetonide (KENALOG) 0.5 % cream Apply 1 application to affected area twice daily. For rash/itching. Apply sparingly. Avoid face/skin fold. Cholecalciferol, Vitamin D3, 50 mcg (2,000 unit) cap Take 1 capsule by mouth once daily. Ferrous Sulfate 325 mg (65 mg iron) tablet Take 1 tablet by mouth twice daily with meals. MULTI-VITAMIN ORAL Take by mouth. omega-3 fatty acids 1,000 mg cap Take 2 g by mouth twice daily. tobramycin-dexAMETHasone (TOBRADEX) 0.3-0.1 % ophthalmic suspension instill 1 drop into both eyes four times a day (Patient not taking: Reported on 10/06/2023) Current Facility-Administered Medications on File Prior to Visit Medication iron sucrose 200 mg injection (VENOFER) Social History Social History Tobacco Use Smoking status: Former Types: Cigarettes Quit date: 09/16/2008 Years since quittin.2 Smokeless tobacco: Never Tobacco comments: had been rare smoker Vaping Use Vaping Use: Never used Substance Use Topics Alcohol use: Yes Comment: Occasionally Drug use: No Review of Symptoms REVIEW OF SYSTEMS See HPI, otherwise negative EXAM: BP 132/82 (BP Site: Left Arm, BP Position: Sitting, BP Cuff Size: Large Adult) Pulse 94 Temp 36.4 C (97.6 F) Wt (!) 143.4 kg (316 lb 3.2 oz) LMP 10/06/2023 (Exact Date) SpO2 100% BMI 51.04 kg/m General Appearance: Well appearing, alert, in no acute distress, well-hydrated, well nourished. and Morbidly obese. Head: Normocephalic, no masses, lesions, tenderness or abnormalities. Eyes: Anicteric sclera. Pupils are equally round and reactive to light. Extraocular movements are intact. . Ears: External ears normal, clear fluid bubbles posterior to bilateral TMs Nose/Sinuses: Nares normal, septum midline, mucosa normal, no drainage or sinus tenderness. Oropharynx: Lips, mucosa, and tongue normal, teeth and gums normal, oropharynx normal. Neck: Supple, no adenopathy; thyroid symmetric, normal size, no bruits. Lungs: Lungs clear to auscultation. No wheezing, rhonchi, rales.. Heart: RRR without murmur, gallop, or rubs. No ectopy. Extremities: No deformities, edema, skin discoloration, clubbing or cyanosis. Good capillary refill. . Neurologic: Gait normal. Reflexes normal and symmetric. Sensation grossly intact.. Lymph Nodes: No cervical lymphadenopathy and No supraclavicular lymphadenopathy. Psychiatric: pleasant, cooperative. Health Maintenance List Hepatitis B Vaccine(1 of 3 - 3-dose series) Never done Hepatitis C Screening Never done HIV Screening Never done Influenza Vaccine(1) due on 06/27/2023 Covid-19 Vaccine(3 - 2022- season) due on 06/27/2023 Depression Assessment Never done Pap Testing due on 11/02/2023 HPV Testing due on 11/02/2023 Mammogram Screening due on 04/23/2024 DTaP,Tdap,Td Vaccine(2 - Td or Tdap) due on 08/17/2024 HPV Vaccine Aged Out Data reviewed Previous records, office notes, [place] report PDMP website checked and validated. All prescriptions have been APPROPRIATELY filled. No suspicious activity was identified. 12/24/2023 by Erasmo Lal CNP. ASSESSMENT/PLAN: 1. Smell disturbance - ICD9: 781.1, ICD10: R43.9 (primary diagnosis) - MRI BRAIN WO IVCON 2. Iron deficiency anemia due to chronic blood loss - ICD9: 280.0, ICD10: D50.0 - IRON + TIBC - FERRITIN BLD - CBC + DIFF - MRI BRAIN WO IVCON 3. Family history of MS (multiple sclerosis) - ICD9: V17.2, ICD10: Z82.0 - MRI BRAIN WO IVCON 4. Muscle spasm - ICD9: 728.85, ICD10: M62.838 - MRI BRAIN WO IVCON 5. Muscle twitch - ICD9: 781.0, ICD10: R25.3 - IRON + TIBC - FERRITIN BLD - CBC + DIFF - MRI BRAIN WO IVCON 6. Muscle ache - ICD9: 729.1, ICD10: M79.10 - IRON + TIBC - FERRITIN BLD - CBC + DIFF - MRI BRAIN WO IVCON 7. Morbid obesity with BMI of 50.0-59.9, adult (HCC) - ICD9: 278.01, V85.43, ICD10: E66.01, Z68.43 Weight increasing - Behavioral and pharmacological intervention - PHENTERMINE 37.5 MG TABLET 8. Motor neuron disease (HCC) - ICD9: 335.20, ICD10: G12.20 - MRI BRAIN WO IVCON Erasmo Lal APRN.TURRET LATHE SET UP OPERATOR documented in this encounter [facility] 11-03-2023 Note HNO ID: [id number] Author: KRISTA BARAKAT RN Service: ? Author Type: Registered Nurse Type: Progress Notes Filed: 11/03/2023 16:13 Note Text: 2 failed IV attempts. Pt made aware that there are 2 other nurses available to try to get an IV but pt refused. Pt states she's been considering talking with her provider to get iron infusion switched to a different form. Her previous appt was also canceled due to failed IV attempts. She is also concerned about newly added co-pays for future infusions. Pt states she will contact provider for other treatment options. [facility] 10-29-2023 Note HNO ID: [id number] Author: Nurys Swanson RN Service: ? Author Type: Registered Nurse Type: Progress Notes Filed: 10/29/2023 8:51 AM Note Text: After x2 attempts of inserting IV that infiltrated, Pt. Stated I think I'm just going to re- schedule. I'm starting to feel woozy. This is normal for me and I have to go to work. Pt stated she was okay to drive. [facility] 10-16-2023 Note HNO ID: [id number] Author: Conchita Lynn RT(Marvin) Service: ? Author Type: Technologist Type: Progress Notes Filed: 10/16/2023 1:33 PM Note Text: Radiology Service Progress Note DATE OF SERVICE: October 16, 2023 TIME: 1:33 PM PATIENT IDENTITY VERIFICATION COMPLETED USING TWO (2) STANDARD IDENTIFIERS: Name and Date of confirmed by patient verbally. FALL SCREENING: Has the patient had 2 falls in the last year or 1 fall with injury or currently using an Ambulatory Assistive Device (Walker, Cane, Wheelchair, Crutches, etc.)? No PATIENT GENDER DATA: Female. status: : No status: NO. PATIENT RELEVANT IMPLANT DATA REVIEWED: Yes ALLERGIES: Reviewed and unchanged CONTRAST ALLERGY: NO. EXAM: MRI - CONTRAST TYPE: GROUP II PERIPHERAL IV DATA: Ambulatory: A peripheral IV was started in the Right antecubital site with a Angio cath: 22 gauge. RADIOLOGY DEPARTMENT: MR; Exam(s) Completed: Body: Liver (routine) SIGNATURE: RT Attila(R) PATIENT NAME: Modesta Corcoran DATE: October 16, 2023 TIME: 1:33 PM [facility] 10-14-2023 Miscellaneous Notes Scheduled with patient. Start email sent. Please let patient know labs show very low iron levels. I will order the iron infusions, repeat labs should be done about 2-4 weeks after last infusion. Other labs looked stable. Orders placed for Venofer infusions, please help set up. documented in this encounter [facility] 10-13-2023 Note HNO ID: [id number] Author: Ameya Hauser APRN.CNP Service: ? Author Type: Nurse Practitioner Type: Progress Notes Filed: 10/13/2023 10:49 AM Note Text: SUBJECTIVE Modesta Corcoran is a 42 year old female here today for a check up on her medical problems. Chief Complaint Patient presents with: Recheck: US and abdominal pain HPI Modesta Corcoran is a 42 year old female. She is here today for follow up. She has been having some upper abdominal pains. Recent ultrasound of the RUQ showed cholelithiasis and 1.3 cm right hepatic lobe lesion and 1.9 cm hypoechoic right hepatic lobe lesion. Labs had normal lipase, amylase and normal LFTs. CBC showed a very low hemoglobin. She has previously had some issues with anemia and needed iron infusions. No blood in urine or stool. Was on her menstrual cycle at the time of most recent blood draw and menstrual bleeding has been the primary cause of her anemia in the past. Issues with excess menstrual bleeding. Had d and c and mirena but not helping a lot, has caused anemia ever since she started having menstrual cycles. Her medications were reviewed today and her list is now up to date. Medications Current Outpatient Medications Medication Sig MAGNESIUM CHLORIDE ORAL Take 1 tablet by mouth once daily. famotidine (PEPCID) 40 mg tablet Take 1 tablet by mouth once daily. triamcinolone acetonide (KENALOG) 0.5 % cream Apply 1 application to affected area twice daily. For rash/itching. Apply sparingly. Avoid face/skin fold. Cholecalciferol, Vitamin D3, 50 mcg (2,000 unit) cap Take 1 capsule by mouth once daily. Ferrous Sulfate 325 mg (65 mg iron) tablet Take 1 tablet by mouth twice daily with meals. MULTI-VITAMIN ORAL Take by mouth. omega-3 fatty acids 1,000 mg cap Take 2 g by mouth twice daily. iv contrast (will be provided with radiology test) MRI Liver Inject, intravenously, once for 1 dose. No IV access, insert saline lock prior to the beginning of sedation, infusion, injection of imaging exam. Discontinue saline lock post exam. If Pt. has a central line or IVAD, may access for administration according to line specific nursing protocol. Once exam is complete flush line and de-access according to line specific nursing protocol in the MR contrast administration guidelines link. diazePAM (VALIUM) 2 mg tablet Take 1 tablet by mouth as directed for 1 day. Take first pill 30 minutes to 1 hour before procedure and then second pill as need leading up to procedure for anxiety. Extra dose x1 to have on hand. tobramycin-dexAMETHasone (TOBRADEX) 0.3-0.1 % ophthalmic suspension instill 1 drop into both eyes four times a day (Patient not taking: Reported on 10/06/2023) Current Facility-Administered Medications Medication Dose Route Frequency iron sucrose 200 mg injection (VENOFER) 200 mg INTRAVENOUS 2/WK ALLERGIES Allergen Reactions Polytrim [Polymyxin* Other: See Comments Bilateral eye swelling, corneal damage. Prilosec [Omeprazol* Itching possibly - might have been due to a spice she had eaten. ACTIVE PROBLEM LIST Yeast Infection of The Skin - 04/07/2018 Hot Flashes - 04/07/2018 Absolute Anemia - 04/07/2018 Vitamin D Deficiency - 04/07/2018 Irregular Menses - 04/07/2018 Gerd With Esophagitis - 04/07/2018 Benign Lipomatous Neoplasm of Skin, Subcu of Right Leg - 04/07/2018 Obesity, Morbid, Bmi 50 Or Higher ([facility]) - 04/07/2018 Obesity, Class Iii, Bmi 40-49.9 (Morbid Obesity) ([facility]) - 01/26/2018 Well Adult Exam - 11/01/2016 Generalized Anxiety Disorder - 11/08/2015 Gastroesophageal Reflux Disease Without Esophagitis - 11/08/2015 Arthralgia of Multiple Sites - 11/08/2015 Myalgia - 11/08/2015 Abnormal Mammogram, Unspecified - 09/16/2014 Social History Tobacco Use Smoking status: Former Types: Cigarettes Quit date: 09/16/2008 Years since quittin.0 Smokeless tobacco: Never Tobacco comments: had been rare smoker Vaping Use Vaping Use: Never used Substance Use Topics Alcohol use: Yes Comment: Occasionally Drug use: No Review of Systems Respiratory: Negative. Cardiovascular: Negative. Gastrointestinal: Positive for abdominal pain. Negative for blood in stool and constipation. OBJECTIVE BP 130/80 Pulse 88 Resp 16 Wt 315 lb (142.9kg) SpO2 100% LMP 10/06/2023 Physical Exam Vitals and nursing note reviewed. Constitutional: General: She is awake. She is not in acute distress. Appearance: Normal appearance. She is well-developed and well-groomed. She is not ill-appearing, toxic-appearing or diaphoretic. HENT: Head: Normocephalic. Right Ear: External ear normal. Left Ear: External ear normal. Nose: Nose normal. Eyes: General: Vision grossly intact. Conjunctiva/sclera: Conjunctivae normal. Pupils: Pupils are equal, round, and reactive to light. Neck: Vascular: No JVD. Trachea: Trachea normal. Pulmonary: Effort: Pulmonary effort is normal. No accessory muscl (more content not included)... [facility] 10-10-2023 Miscellaneous Notes Patient returns call and provider message reviewed. Patient verbalizes understanding and agreeable to follow up on FridayOctober 13 at 9 am with Ameya. Patient requested appointment with Ameya since she has already seen provider for this. Sherron Palencia RN LEFT MESSAGE FOR PATIENT TO CALL OFFICE. I still don't have the read back on the ultrasound. If any issues over the weekend with the hemoglobin being low and not having the results back she should utilize ER, otherwise we will touch base Friday to get an update on how she is feeling. I recommend we bring her back in for an office visit the start of next week (Friday or Friday). Please see if she will schedule. Spoke with patient and she states that the pain has improved as long as she sticks to a liquid diet She was unable to get the US moved up. Still scheduled for 10/10/2023 here at [facility]. Please call patient and see if pain improving or worsening and if she got her ultrasound moved up. Her labs are back and show her hemoglobin which is chronically low is even lower. If abdominal pain not improving or worse or she is having new symptoms such as dark stool, diarrhea, nausea or vomiting then I recommend she go to ER for eval to make sure the hemoglobin is not lower as a result of blood loss internally some where. documented in this encounter [facility] 10-10-2023 Miscellaneous Notes Patient notified. While on the phone, PCP was calling her. Esthela Hess RN Message left asking pt to contact the office for further instruction. Sendy Toribio LPN I think that would be a good idea- I did not order the CBC- I think she needs to discuss with PCP who ordered it. Patient asking DM to review her CBC results. Asking if she needs IV iron again. Aware DM is out of office today. Hemoglobin (g/dL) Date Value 10/07/2023 7.0 documented in this encounter [facility] 10-10-2023 Note HNO ID: [id number] Author: Uyen De La Rosa RDMS Service: ? Author Type: History Department Chair Type: Progress Notes Filed: 10/10/2023 9:03 AM Note Text: Radiology Service Progress Note PATIENT NAME: Modesta Corcoran DATE OF SERVICE: October 10, 2023 TIME: 9:03 AM PATIENT IDENTITY VERIFICATION COMPLETED USING TWO (2) IDENTIFIERS: Name and Date of confirmed by patient verbally. FALL SCREENING: Has the patient had 2 falls in the last year or 1 fall with injury or currently using an Ambulatory Assistive Device (Walker, Cane, Wheelchair, Crutches, etc.)? No PATIENT GENDER DATA: Female. status: : No status: NO. PATIENT RELEVANT IMPLANT DATA REVIEWED: Not Applicable RADIOLOGY DEPARTMENT: Ultrasound PERIPHERAL IV DATA: Not applicable SIGNED BY: Uyen De La Rosa RDMS October 10, 2023 9:03 AM [facility] 10-10-2023 History of Presen t illness Narrative Radiology Service Progress Note PATIENT NAME: Modesta Corcoran DATE OF SERVICE: October 10, 2023 TIME: 9:03 AM PATIENT IDENTITY VERIFICATION COMPLETED USING TWO (2) IDENTIFIERS: Name and Date of confirmed by patient verbally. FALL SCREENING: Has the patient had 2 falls in the last year or 1 fall with injury or currently using an Ambulatory Assistive Device (Walker, Cane, Wheelchair, Crutches, etc.)? No PATIENT GENDER DATA: Female. status: : No status: NO. PATIENT RELEVANT IMPLANT DATA REVIEWED: Not Applicable RADIOLOGY DEPARTMENT: Ultrasound PERIPHERAL IV DATA: Not applicable SIGNED BY: Uyen De La Rosa RDMS October 10, 2023 9:03 AM documented in this encounter [facility] 10-06-2023 Note HNO ID: [id number] Author: Ameya Hauser APRN.TURRET LATHE SET UP OPERATOR Service: ? Author Type: Nurse Practitioner Type: Progress Notes Filed: 10/06/2023 2:54 PM Note Text: SUBJECTIVE Modesta Corcoran is a 42 year old female here today for a check up on her medical problems. Chief Complaint Patient presents with: Abdominal Pain: left flank/ribs and upper back pain 5 days off and on mainly after eating meals HPI Modesta Corcoran is a 42 year old female. Left sided abdominal pain. Onset about 5 days ago. Occurs off and on, aches, at times more bothersome when eating. Wrapped around ribs some. No nausea or vomiting. Some diarrhea. Increased gas. Appetite is normal. Prior ultrasound was unremarkable. Has her gallbladder. Worse with greasy/fatty foods. Her medications were reviewed today and her list is now up to date. Medications Current Outpatient Medications Medication Sig triamcinolone acetonide (KENALOG) 0.5 % cream Apply 1 application to affected area twice daily. For rash/itching. Apply sparingly. Avoid face/skin fold. Ferrous Sulfate 325 mg (65 mg iron) tablet Take 1 tablet by mouth twice daily with meals. MULTI-VITAMIN ORAL Take by mouth. omega-3 fatty acids 1,000 mg cap Take 2 g by mouth twice daily. famotidine (PEPCID) 40 mg tablet Take 1 tablet by mouth once daily. tobramycin-dexAMETHasone (TOBRADEX) 0.3-0.1 % ophthalmic suspension instill 1 drop into both eyes four times a day (Patient not taking: Reported on 10/06/2023) Cholecalciferol, Vitamin D3, 50 mcg (2,000 unit) cap Take 1 capsule by mouth once daily. Current Facility-Administered Medications Medication Dose Route Frequency iron sucrose 200 mg injection (VENOFER) 200 mg INTRAVENOUS 2/WK ALLERGIES Allergen Reactions Polytrim [Polymyxin* Other: See Comments Bilateral eye swelling, corneal damage. Prilosec [Omeprazol* Itching possibly - might have been due to a spice she had eaten. ACTIVE PROBLEM LIST Yeast Infection of The Skin - 04/07/2018 Hot Flashes - 04/07/2018 Absolute Anemia - 04/07/2018 Vitamin D Deficiency - 04/07/2018 Irregular Menses - 04/07/2018 Gerd With Esophagitis - 04/07/2018 Benign Lipomatous Neoplasm of Skin, Subcu of Right Leg - 04/07/2018 Obesity, Morbid, Bmi 50 Or Higher ([facility]) - 04/07/2018 Obesity, Class Iii, Bmi 40-49.9 (Morbid Obesity) ([facility]) - 01/26/2018 Well Adult Exam - 11/01/2016 Generalized Anxiety Disorder - 11/08/2015 Gastroesophageal Reflux Disease Without Esophagitis - 11/08/2015 Arthralgia of Multiple Sites - 11/08/2015 Myalgia - 11/08/2015 Abnormal Mammogram, Unspecified - 09/16/2014 Social History Tobacco Use Smoking status: Former Types: Cigarettes Quit date: 09/16/2008 Years since quittin.0 Smokeless tobacco: Never Tobacco comments: had been rare smoker Vaping Use Vaping Use: Never used Substance Use Topics Alcohol use: Yes Comment: Occasionally Drug use: No Review of Systems Respiratory: Negative. Cardiovascular: Negative. Gastrointestinal: Positive for abdominal pain. Negative for abdominal distention, anal bleeding, blood in stool, constipation and rectal pain. OBJECTIVE BP 138/82 Pulse 73 Wt 317 lb (143.8kg) SpO2 91% LMP 10/06/2023 Physical Exam Vitals and nursing note reviewed. Constitutional: General: She is awake. She is not in acute distress. Appearance: Normal appearance. She is well-developed and well-groomed. She is not ill-appearing, toxic-appearing or diaphoretic. HENT: Head: Normocephalic. Right Ear: External ear normal. Left Ear: External ear normal. Nose: Nose normal. Eyes: General: Vision grossly intact. Conjunctiva/sclera: Conjunctivae normal. Pupils: Pupils are equal, round, and reactive to light. Neck: Vascular: No JVD. Trachea: Trachea normal. Cardiovascular: Rate and Rhythm: Normal rate and regular rhythm. Pulses: Normal pulses. Heart sounds: Normal heart sounds. No murmur heard. Pulmonary: Effort: Pulmonary effort is normal. No accessory muscle usage, prolonged expiration or respiratory distress. Breath sounds: Normal breath sounds. Abdominal: General: Bowel sounds are normal. Palpations: Abdomen is soft. There is no shifting dullness, fluid wave, hepatomegaly, splenomegaly, mass or pulsatile mass. Tenderness: There is abdominal tenderness. There is no guarding or rebound. Positive signs include Anaya's sign. Negative signs include Rovsing's sign and McBurney's sign. Musculoskeletal: Cervical back: Neck supple. Skin: General: Skin is warm and dry. Capillary Refill: Capillary refill takes less than 2 seconds. Neurological: General: No focal deficit present. Mental Status: She is alert and oriented to person, place, and time. Mental status is at baseline. Psychiatric: Attention and Perception: Attention and perception normal. Mood and Affect: Mood and affect normal. Speech: Speech normal. Behavior: Behavior normal. Behavior is cooperative. (more content not included)... [facility] 10-06-2023 Miscellaneous Notes Triage Protocol Recommended: See provider within 4 hours for evaluation. Appt made with an available provider today. Pt aware to seek ER for red flag sx's as discussed. Reason for Disposition [1] MILD-MODERATE pain AND [2] constant AND [3] present > 2 hours Answer Assessment - Initial Assessment Questions 1. LOCATION: began under left rib area/left stomach area, radiating to back left 2. RADIATION: left side/back 3. ONSET: - 5 days ago 4. SUDDEN: gradual 5. PATTERN : comes and goes, seems more constant now 6. SEVERITY: 5/6 out of 10 currently, more sharp over last 24 hours 7. RECURRENT SYMPTOM: not like this, has GERD 8. CAUSE:pt unsure 9. RELIEVING/AGGRAVATING FACTORS: -has been taking Pepcid OTC, helps a little bit 10. OTHER SYMPTOMS: -was sick 2 weeks ago, had diarrhea-had possible covid, but never tested, family had covid -last BM was yesterday, normal BM -urinating ok -no nausea/vomiting -sometimes sitting makes it left side hurts -feels good in morning, no sx's in mornings -no abd or back tenderness -no bloating -eating and drinking ok -feels worse after eating -has Merena IUD in -having some chills and feeling warm at times but denies fever 11. :does not think so, merena IUD Protocols used: Abdominal Pain - [id number] documented in this encounter [facility] 04-23-2023 Note HNO ID: [id number] Author: Gregoria Quarles Service: Radiology Author Type: Technologist Type: Progress Notes Filed: 04/23/2023 1:16 PM Note Text: Radiology Service Progress Note PATIENT NAME: Modesta Corcoran DATE OF SERVICE: April 23, 2023 TIME: 1:16 PM PATIENT IDENTITY VERIFICATION COMPLETED USING TWO (2) IDENTIFIERS: Name and Date of confirmed by patient verbally. FALL SCREENING: Has the patient had 2 falls in the last year or 1 fall with injury or currently using an Ambulatory Assistive Device (Walker, Cane, Wheelchair, Crutches, etc.)? No PATIENT GENDER DATA: Female. status: : No status: NO. PATIENT RELEVANT IMPLANT DATA REVIEWED: Yes RADIOLOGY DEPARTMENT: Mammography PERIPHERAL IV DATA: Not applicable SIGNED BY: Gregoria Quarles April 23, 2023 1:16 PM [facility] 04-23-2023 Note HNO ID: [id number] Author: Maria G Toney APRN.TURRET LATHE SET UP OPERATOR Service: ? 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 01/01/23 she was examined by Erasmo Lal CNP who noted prominent RIGHT axilla lymph node on exam. Right ultrasound was ordered. She reports she felt like she had in groin hair follicle and not prominent lymph node. She reports all symptoms resolved. Bilateral DBT mammogram was completed 05/29/22 with findings of The irregular high density focal asymmetry in the right breast is suspicious of malignancy. A stereotactic biopsy is recommended under tomosynthesis. 06/20/22 she underwent RIGHT stereo tactic core biopsy with findings of PASH/UDH. Results of were concordant with imaging. 6 month diagnostic mammogram recommended. She is concerned with repeated biopsies and would like to discuss RRM She denies any breast masses, pain, skin changes or nipple discharge. She denies any new personal or family medical problems. Portions of this encounter note have been copied from my previous note dated, 01/01/22, which has been updated where appropriate and all reflect current medical decision making from today, 04/23/23 Her vitamin D level was Vitamin D 25 Hydroxy (ng/mL) Date Value 03/07/2022 20.1 05/22/2020 26.5 She takes vitamin D 2000 units and a multivitamin daily. BMD: NA PERSONAL BREAST HISTORY: Past breast history (prior to this encounter) is as follows: Breast biopsy: Yes, 2014 in left breast stereo bx-benign per pt; 2018 in right breast core bx benign per pt, 06/20/22: UDH/PASH Breast cysts: No Breast surgery: No Breast cancer: No CANCER SURVEILLANCE: Mammograms: Yes, 05/29/22 results: see above Breast MRI: No Colonoscopy: No RISK FACTORS FOR BREAST CANCER: Age at the onset of menses: 11 years of age. P: 2 Age at the of first child: 22 years of age. She breast fed for 8 months total. Age at menopause: The patient is not menopausal at this time. Post-menopausal hormone therapy: No She has her uterus and one ovary She does not use any control. History of Mantle Radiation prior to the age of 30: No Obesity: Yes, Current Weight: 337 lbs Mammographic density: There are scattered fibroglandular densities Personal History of Benign Atypical Breast Biopsy: No Alcohol use: Rare PAST MEDICAL HISTORY: PAST MEDICAL HISTORY Diagnosis Date Anemia iron deficiency MVP (mitral valve prolapse) POTS (postural orthostatic tachycardia syndrome) Psoriasis Vitamin D deficiency Patient specifically denies history of: DVT, PE, migraine headaches WITH AURA, migraine headaches without aura, osteopenia and osteoporosis. +uterine biopsies and bleeding due to Fibroids PAST SURGICAL HISTORY: PAST SURGICAL HISTORY Procedure Laterality Date BX BREAST W/DEVICE 1ST LESION STEREOTACTIC GUID 09/21/2014 left DANDC, DIAG AND/OR THERAPEUTIC 08/08/2022 polypectomy HYSTEROSCOPY, DIAGNOSTIC (SEPARATE 08/08/2022 Mirena IUD insertion PAST SURGICAL HISTORY OF 10/27/1991 Ovarion abscess and removal right side PAST SURGICAL HISTORY OF 1996, 1999 right shoulder repair for dislocation SOCIAL HISTORY: Social History Tobacco Use Smoking status: Former Types: Cigarettes Quit date: 09/16/2008 Years since quittin.6 Smokeless tobacco: Never Tobacco comments: had been rare smoker Vaping Use Vaping Use: Never used Substance Use Topics Alcohol use: Yes Comment: Occasionally Drug use: No Caffeine intake: Yes Exercise: 1-2 times weekly FAMILY HISTORY: Reviewed: 04/23/23 Family history of breast cancer: MGM at 80 years old, living; PGM at 50 and recurrence at 60, living Family history of ovarian cancer: None Number of sisters: 4 Number of maternal aunts: 1 Number of paternal aunts: 0 Ashkenazi Ancestry: no Has Patient had Genetic Testing? No Other Cancer: MGF- Colon Cancer at 59 years old, ; MGM- Skin Cancer at 50 years old, living There is no family history of prostate, uterine, pancreatic, gastric, brain, renal cell or thyroid cancer. There is no family history of melanoma, sarcoma or leukemia. Osteoporosis: MGM Stroke: None Blood Clot: None Heart attack: PGF Thyroid Nodule or Goiter: None Autism: None FAMILY HISTORY Problem Relation Age of Onset Multiple Sclerosis Mother Breast Cancer Maternal Grandmother 80 Skin Cancer Maternal Grandmother 50 Colon Cancer Maternal Grandfather 60 COPD Maternal Grandfather Breast Cancer Paternal Grandmother (more content not included)... [facility] 04-23-2023 History of Presen t illness Narrative Images from the original note were not included. 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 01/01/23 she was examined by Erasmo Lal CNP who noted prominent RIGHT axilla lymph node on exam. Right ultrasound was ordered. She reports she felt like she had in groin hair follicle and not prominent lymph node. She reports all symptoms resolved. Bilateral DBT mammogram was completed 05/29/22 with findings of The irregular high density focal asymmetry in the right breast is suspicious of malignancy. A stereotactic biopsy is recommended under tomosynthesis. 06/20/22 she underwent RIGHT stereo tactic core biopsy with findings of PASH/UDH. Results of were concordant with imaging. 6 month diagnostic mammogram recommended. She is concerned with repeated biopsies and would like to discuss RRM She denies any breast masses, pain, skin changes or nipple discharge. She denies any new personal or family medical problems. Portions of this encounter note have been copied from my previous note dated, 01/01/22, which has been updated where appropriate and all reflect current medical decision making from today, 04/23/23 Her vitamin D level was Vitamin D 25 Hydroxy (ng/mL) Date Value 03/07/2022 20.1 05/22/2020 26.5 She takes vitamin D 2000 units and a multivitamin daily. BMD: NA PERSONAL BREAST HISTORY: Past breast history (prior to this encounter) is as follows: Breast biopsy: Yes, 2014 in left breast stereo bx-benign per pt; 2018 in right breast core bx benign per pt, 06/20/22: UDH/PASH Breast cysts: No Breast surgery: No Breast cancer: No CANCER SURVEILLANCE: Mammograms: Yes, 05/29/22 results: see above Breast MRI: No Colonoscopy: No RISK FACTORS FOR BREAST CANCER: Age at the onset of menses: 11 years of age. P: 2 Age at the of first child: 22 years of age. She breast fed for 8 months total. Age at menopause: The patient is not menopausal at this time. Post-menopausal hormone therapy: No She has her uterus and one ovary She does not use any control. History of Mantle Radiation prior to the age of 30: No Obesity: Yes, Current Weight: 337 lbs Mammographic density: There are scattered fibroglandular densities Personal History of Benign Atypical Breast Biopsy: No Alcohol use: Rare PAST MEDICAL HISTORY: PAST MEDICAL HISTORY Diagnosis Date Anemia iron deficiency MVP (mitral valve prolapse) POTS (postural orthostatic tachycardia syndrome) Psoriasis Vitamin D deficiency Patient specifically denies history of: DVT, PE, migraine headaches WITH AURA, migraine headaches without aura, osteopenia and osteoporosis. +uterine biopsies and bleeding due to Fibroids PAST SURGICAL HISTORY: PAST SURGICAL HISTORY Procedure Laterality Date BX BREAST W/DEVICE 1ST LESION STEREOTACTIC GUID 09/21/2014 left D&C, DIAG AND/OR THERAPEUTIC 08/08/2022 polypectomy HYSTEROSCOPY, DIAGNOSTIC (SEPARATE 08/08/2022 Mirena IUD insertion PAST SURGICAL HISTORY OF 10/27/1991 Ovarion abscess and removal right side PAST SURGICAL HISTORY OF 1996, 1999 right shoulder repair for dislocation SOCIAL HISTORY: Social History Tobacco Use Smoking status: Former Types: Cigarettes Quit date: 09/16/2008 Years since quittin.6 Smokeless tobacco: Never Tobacco comments: had been rare smoker Vaping Use Vaping Use: Never used Substance Use Topics Alcohol use: Yes Comment: Occasionally Drug use: No Caffeine intake: Yes Exercise: 1-2 times weekly FAMILY HISTORY: Reviewed: 04/23/23 Family history of breast cancer: MGM at 80 years old, living; PGM at 50 and recurrence at 60, living Family history of ovarian cancer: None Number of sisters: 4 Number of maternal aunts: 1 Number of paternal aunts: 0 Ashkenazi Ancestry: no Has Patient had Genetic Testing? No Other Cancer: MGF- Colon Cancer at 59 years old, ; MGM- Skin Cancer at 50 years old, living There is no family history of prostate, uterine, pancreatic, gastric, brain, renal cell or thyroid cancer. There is no family history of melanoma, sarcoma or leukemia. Osteoporosis: MGM Stroke: None Blood Clot: None Heart attack: PGF Thyroid Nodule or Goiter: None Autism: None FAMILY HISTORY Problem Relation Age of Onset Multiple Sclerosis Mother Breast Cancer Maternal Grandmother 80 Skin Cancer Maternal Grandmother 50 Colon Cancer Maternal Grandfather 60 COPD Maternal Grandfather Breast Cancer Paternal Grandmother at 50 or 60; then again at 60 or 70 Heart Paternal Grandfather MEDICATIONS: tobramycin-dexAMETHasone (TOBRADEX) 0.3-0.1 % ophthalmic suspension^instill 1 drop into both eyes four times a day^Disp: ^Rfl: triamcinolone acetonide (KENALOG) 0.5 % cream^Apply 1 application to affected area twice daily. For rash/itching. Apply sparingly. Avoid face/skin fold.^Disp: 15 g^Rfl: 2 Cholecalciferol, Vitamin D3, 50 mcg (2,000 unit) cap^Take 1 capsule by mouth once daily.^Disp: 30 capsule^Rfl: 5 Ferrous Sulfate 325 mg (65 mg iron) tablet^Take 1 tablet by mouth twice daily with meals.^Disp: ^Rfl: 0 MULTI-VITAMIN ORAL^Take by mouth.^Disp: ^Rfl: omega-3 fatty acids 1,000 mg cap^Take 2 g by mouth twice daily.^Disp: ^Rfl: ALLERGIES: ALLERGIES Allergen Reactions Polytrim [Polymyxin* Other: See Comments Bilateral eye swelling, corneal damage. Prilosec [Omeprazol* Itching possibly - might have been due to a spice she had eaten. REVIEW OF SYSTEMS: She denies chest pain, shortness of breath, persistent cough, severe headaches, unusual bony pains, abdominal pain or unintentional weight loss. PHYSICAL EXAM: LMP 04/16/2023 (Exact Date) General: well-nourished, healthy, obese, white, female, alert and oriented x 3, calm Skin: warm, dry, skin color, texture, turgor normal Head/Eyes: normocephalic, atraumatic and anicteric Lymph nodes- The supraclavicular, axillary, and cervical regions are free of significant lymphadenopathy. Accessory breast tissue noted LEFT axilla Right breast-The skin, nipple and areola appear normal. There is no skin dimpling with movement of the pectoralis. There is no nipple retraction. No discharge can be elicited. The parenchya is moderately fibrocystic. There is no dominant masses in the breast. The axillary tail is normal. There is no tenderness noted with palpation. Left breast- The skin, nipple, and areola appear normal. There is no skin dimpling with movement of the pectoralis. There is no nipple retraction. No discharge can be elicited. The parenchyma is moderately fibrocystic. There is no dominant masses in the breast. The axillary tail is normal. There is no tenderness noted with palpation. IMAGING: Bilateral Diagnostic mammograms were performed today in the breast center today with the following findings: There are scattered fibroglandular elements in both breasts. There is a benign focal asymmetry in the right breast upper outer aspect posterior depth. This is not significantly changed. There is a biopsy clip associated with the focal asymmetry. There is no abnormality seen in the right axilla to correspond with the palpable abnormality in the right axilla, however, clinical correlation and clinical followup are recommended A 1 year screening mammogram is recommended. Assessment IMPRESSION/PLAN: Modesta Corcoran is a 41 year old year old female with bilateral fibrocystic change, increased risk for breast cancer due to FH, nipple discharge and excess weight There is no evidence of malignancy. The patient was reassured as to the benign nature of her clinical, mammographic, and sonographic findings. Her data were entered into the Tyrer-Cuzick model for Risk Assessment. Her 10 year projected risk of developing invasive breast cancer is 6.0% and her lifetime risk of breast cancer is estimated to be 30.6%. I reviewed hyperplasia can exaggerate her risk . She meets ACS criteria for screening breast MRI and will be followed twice yearly with clinical exams as well as annual DBT alternating with screening breast MRI. The pros and cons of screening MRI have been discussed with the patient including enhanced sensitivity and false positives. I will order a screening MRI to be completed in 10/18 . The patient is responsible for getting pre-certification from her insurance company and is advised to ask about a deductible or co-pay. I reviewed the NCCN guidelines for discussion/recommendation of RRM. I also discussed compelling circumstances and the process at [facility] to include: consult to medical pathology teacher, consult breast surgeon, plastic surgery and breast pscychologist Genetics referral made: No: Reason: Not indicated at this time Chemoprevention discussion: N/A-due to current weight, I wouldn't recommend use of tamoxifen in her care The patient is advised to exercise regularly, achieve/maintain ideal body weight, and to limit alcohol consumption to less than 7 drinks weekly for breast cancer risk reduction and overall health. Encouraged embark on diet and exercise routine for breast cancer risk reduction The patient has an active breast problem and will be seen in follow up in the breast center. She will return in 6 months for exam and MRI of breast. She will call me in the interim should she have any questions or concerns. I spent a total of 28 minutes on the date of the service which included preparing to see the patient, [id number] patient care, completing clinical documentation, obtaining and/or reviewing separately obtained history, performing a medically appropriate examination, counseling and educating the patient/family/caregiver, ordering medications, tests, or procedures, and communicating results to the patient/family/caregiver. Maria G Toney APRN.TIFFANY Medical Breast Specialist Women's Health Nurse Practitioner CC: Jaylene Santamaria [address] [facility] [address] [address] [place] [address] documented in this encounter [facility] 04-23-2023 Instructions Juliet Albert Ia - 04/23/2023 11:46 AM EDT General Breast Health Recommendations A healthy body helps promote healthy breasts. If you smoke, please consider a smoking cessation program. If you do not exercise, please consider starting an exercise program if you are able to, even if it is just walking in your neighborhood. Research shows that obesity, especially post-menopausal obesity, is a risk factor for breast cancer. Obtaining calcium in your diet or taking a calcium supplement that contains vitamin D is good for your bones. There is evolving evidence that Vitamin D supplementation may also help to decrease breast cancer risk. If you are post-menopausal and are bothered by hot flashes and still have a uterus, combined estrogen-progesterone preparations can increase your risk of breast cancer if taken for longer than five years. Alcohol is also an under-recognized risk factor. Every drink you have daily increases your breast cancer risk by 10%. Mammograms save lives. Have an annual mammogram annually beginning at age 40. Continue annual mammograms as long as you remain in good health. Breast self-exam, performed on day 7 of your menstrual cycle, can also be very helpful. Know your breasts and report changes to your health care provider or breast specialist. Clinical breast exams by your primary care provider or breast specialist are recommended annually every 1-3 years for women over the age of 20 and annually after the age of 40. Increased frequency of the clinical exam may be recommended for women at increased risk of breast cancer. Risk factors for breast cancer: Being a woman Family history of breast cancer Early menarche (onset of menses) prior to age 13 Nulliparity (never had children) First child after age 30 Late menopause (stopping of periods) after age 55 History of breast biopsy that showed atypical cells (ADH, ALH, LCIS, FEA) Presence of a genetic mutation (BRCA1, BRCA2, PTEN, P53, CDH1) History of chest wall irradiation (such as with Hodgkin's Lymphoma) prior to age 30 Personal history of breast cancer Post-menopausal Obesity Combined hormone therapy (estrogen and progesterone) for greater than 5 years Alcohol consumption of greater than 7 alcohol-containing drinks per week Breast density If you have a family history of breast or ovarian cancer, review this with your primary care provider or breast specialist to see if a referral for genetic counseling is recommended. 5-10% of breast cancers and up to 15% of ovarian cancers are linked to a genetic mutation. Signs of hereditary breast cancer syndrome include breast cancer that occurs under the age of 50, ovarian cancer at any age, male breast cancer, multiple family members affected with breast cancer, and a history of Ashkenazi Spiritism ancestry. Breast pain is very common and usually is not a sign of cancer, but should be evaluated by a breast specialist. For comfort, simply reducing caffeine (coffee, tea, chocolate, energy drinks, sodas) in your diet can provide relief. A properly fitted bra can also be helpful in reducing breast pain. If those two measures do not provide relief, taking Evening Hortense Oil 1000mg capsules twice a day for a short period of time (three to four months) may be helpful. Many women wonder about their breast density. Dense breast tissue is, in and of itself, a relatively common condition which could hide abnormalities in a screening mammogram. This information is not provided to cause undue concern; rather, it is to raise your awareness and promote discussion with your health care provider regarding the presence of dense breast tissue in addition to other risk factors. If you would like to compliment one of our caregivers you encountered today, you may do so at [email or web address]. Thank you ! documented in this encounter [facility] 04-23-2023 Nurse Note Last mammogram on: 04/25/2022 Results: see report Is the patient active on [employer] Yes Electronically Signed By: Juliet Albert Ma In Department: [facility] REVIEW OF PATIENT HISTORY: OB History T0 L2 SAB0 IAB0 Ectopic0 Multiple0 Live Births0 Comment: Menarche: 11; Age at 1st : 22; Premenopausal LMP- 12/16/21 FAMILY HISTORY Problem Relation Age of Onset Multiple Sclerosis Mother Breast Cancer Maternal Grandmother 80 Skin Cancer Maternal Grandmother 50 Colon Cancer Maternal Grandfather 60 COPD Maternal Grandfather Breast Cancer Paternal Grandmother at 50 or 60; then again at 60 or 70 Heart Paternal Grandfather PAST MEDICAL HISTORY Diagnosis Date Anemia iron deficiency MVP (mitral valve prolapse) POTS (postural orthostatic tachycardia syndrome) Psoriasis Vitamin D deficiency PAST SURGICAL HISTORY Procedure Laterality Date BX BREAST W/DEVICE 1ST LESION STEREOTACTIC GUID 09/21/2014 left D&C, DIAG AND/OR THERAPEUTIC 08/08/2022 polypectomy HYSTEROSCOPY, DIAGNOSTIC (SEPARATE 08/08/2022 Mirena IUD insertion PAST SURGICAL HISTORY OF 10/27/1991 Ovarion abscess and removal right side PAST SURGICAL HISTORY OF 1996, 1999 right shoulder repair for dislocation Social History Tobacco Use Smoking status: Former Types: Cigarettes Quit date: 09/16/2008 Years since quittin.6 Smokeless tobacco: Never Tobacco comments: had been rare smoker Vaping Use Vaping Use: Never used Substance Use Topics Alcohol use: Yes Comment: Occasionally Drug use: No documented in this encounter [facility] 03-31-2023 Miscellaneous Notes Open in error documented in this encounter [facility] 03-28-2023 Note HNO ID: [id number] Author: Davy Marks APRN.TIFFANY Service: ? Author Type: Nurse Practitioner Type: Progress Notes Filed: 03/28/2023 4:45 PM Note Text: Subjective HPI Nontoxic-appearing female presents urgent care chief complaint sore throat fatigue. Duration of symptoms 5 days. Associated symptoms sore throat fatigue. Presents today to rule out strep throat. Was sick about 10 days ago. Diagnosed with pharyngitis conjunctivitis. Pharyngitis did improve has worsened again. Conjunctivitis is improving. Currently under care by ophthalmology for conjunctivitis. No OTC medication use today. Sore throat is worse at night and improves throughout the day. Denies any fever body aches chills productive cough chest pain shortness of breath pleuritic pain hemoptysis nausea vomiting abdominal pain change in bowel or bladder habits. Past medical history prescription medication use and allergies reviewed. .Patient presents with: Pain, Throat: Pt reported throat pain, fatigue, x 5 days. PAST MEDICAL HISTORY Diagnosis Date Anemia iron deficiency MVP (mitral valve prolapse) POTS (postural orthostatic tachycardia syndrome) Psoriasis Vitamin D deficiency PAST SURGICAL HISTORY Procedure Laterality Date BX BREAST W/DEVICE 1ST LESION STEREOTACTIC GUID 09/21/2014 left DANDC, DIAG AND/OR THERAPEUTIC 08/08/2022 polypectomy HYSTEROSCOPY, DIAGNOSTIC (SEPARATE 08/08/2022 Mirena IUD insertion PAST SURGICAL HISTORY OF 10/27/1991 Ovarion abscess and removal right side PAST SURGICAL HISTORY OF 1996, 1999 right shoulder repair for dislocation ALLERGIES Polytrim [Polymyxin B Sulf-Trimethoprim] and Prilosec [Omeprazole Magnesium] MEDICATIONS olopatadine (PATANOL) 0.1 % ophthalmic solutionUse 1 Drop in both eyes twice daily for 30 days.Disp: 5 mLRfl: 0 triamcinolone acetonide (KENALOG) 0.5 % creamApply 1 application to affected area twice daily. For rash/itching. Apply sparingly. Avoid face/skin fold.Disp: 15 gRfl: 2 Ferrous Sulfate 325 mg (65 mg iron) tabletTake 1 tablet by mouth twice daily with meals.Disp: Rfl: 0 MULTI-VITAMIN ORALTake by mouth.Disp: Rfl: omega-3 fatty acids 1,000 mg capTake 2 g by mouth twice daily.Disp: Rfl: tobramycin-dexAMETHasone (TOBRADEX) 0.3-0.1 % ophthalmic suspensioninstill 1 drop into both eyes four times a dayDisp: Rfl: trimethoprim-polymyxin (POLYTRIM) 10,000 unit- 1 mg/mL ophthalmic solutionUse 1 Drop in both eyes every 4 hours for 7 days.Disp: 10 mLRfl: 0 (Patient not taking: Reported on 03/28/2023) Cholecalciferol, Vitamin D3, 50 mcg (2,000 unit) capTake 1 capsule by mouth once daily.Disp: 30 capsuleRfl: 5 FAMILY HISTORY Problem Relation Age of Onset Multiple Sclerosis Mother Breast Cancer Maternal Grandmother 80 Skin Cancer Maternal Grandmother 50 Colon Cancer Maternal Grandfather 60 COPD Maternal Grandfather Breast Cancer Paternal Grandmother at 50 or 60; then again at 60 or 70 Heart Paternal Grandfather Social History Tobacco Use Smoking status: Former Types: Cigarettes Quit date: 09/16/2008 Years since quittin.5 Smokeless tobacco: Never Tobacco comments: had been rare smoker Vaping Use Vaping Use: Never used Substance Use Topics Alcohol use: Yes Comment: Occasionally Drug use: No BP 130/74 Pulse 88 Temp 36.7 ?C (98 ?F) (Tympanic) Resp 18 Wt (!) 153.1 kg (337 lb 9.6 oz) LMP 03/25/2023 (Approximate) SpO2 100% BMI 54.49 kg/m? Review of Systems Constitutional: Negative for chills, fever and malaise/fatigue. HENT: Positive for sore throat. Negative for congestion, ear discharge, ear pain and sinus pain. Eyes: Negative for blurred vision, pain, discharge and redness. Respiratory: Negative for cough, hemoptysis, sputum production, shortness of breath, wheezing and stridor. Cardiovascular: Negative for chest pain. Gastrointestinal: Negative for abdominal pain, diarrhea, nausea and vomiting. Musculoskeletal: Negative for myalgias. Skin: Negative for itching and rash. Neurological: Negative for dizziness and headaches. Objective Physical Exam Constitutional: General: She is not in acute distress. Appearance: She is not diaphoretic. HENT: Head: Normocephalic. Jaw: No trismus, tenderness, swelling or pain on movement. Right Ear: Tympanic membrane, ear canal and external ear normal. Left Ear: Tympanic membrane, ear canal and external ear normal. Mouth/Throat: Lips: Le[place]. Mouth: Mucous membranes are moist. Pharynx: Oropharynx is clear. Uvula midline. No pharyngeal swelling, oropharyngeal exudate, posterior oropharyngeal erythema or uvula swelling. Cardiovascular: Rate and Rhythm: Normal rate and regular rhythm. Heart sounds: Normal heart sounds. Pulmonary: Effort: Pulmonary effort is normal. No tachypnea, accessory muscle usage or respiratory distress. Breath sounds: Normal breath sounds. No stridor. No wheezing, rhonchi or rales. Musculoskeletal: (more content not included)... [facility] 03-28-2023 History of Presen t illness Narrative Subjective HPI Nontoxic-appearing female presents urgent care chief complaint sore throat fatigue. Duration of symptoms 5 days. Associated symptoms sore throat fatigue. Presents today to rule out strep throat. Was sick about 10 days ago. Diagnosed with pharyngitis conjunctivitis. Pharyngitis did improve has worsened again. Conjunctivitis is improving. Currently under care by ophthalmology for conjunctivitis. No OTC medication use today. Sore throat is worse at night and improves throughout the day. Denies any fever body aches chills productive cough chest pain shortness of breath pleuritic pain hemoptysis nausea vomiting abdominal pain change in bowel or bladder habits. Past medical history prescription medication use and allergies reviewed. .Patient presents with: Pain, Throat: Pt reported throat pain, fatigue, x 5 days. PAST MEDICAL HISTORY Diagnosis Date Anemia iron deficiency MVP (mitral valve prolapse) POTS (postural orthostatic tachycardia syndrome) Psoriasis Vitamin D deficiency PAST SURGICAL HISTORY Procedure Laterality Date BX BREAST W/DEVICE 1ST LESION STEREOTACTIC GUID 09/21/2014 left D&C, DIAG AND/OR THERAPEUTIC 08/08/2022 polypectomy HYSTEROSCOPY, DIAGNOSTIC (SEPARATE 08/08/2022 Mirena IUD insertion PAST SURGICAL HISTORY OF 10/27/1991 Ovarion abscess and removal right side PAST SURGICAL HISTORY OF 1996, 1999 right shoulder repair for dislocation ALLERGIES Polytrim [Polymyxin B Sulf-Trimethoprim] and Prilosec [Omeprazole Magnesium] MEDICATIONS olopatadine (PATANOL) 0.1 % ophthalmic solution^Use 1 Drop in both eyes twice daily for 30 days.^Disp: 5 mL^Rfl: 0 triamcinolone acetonide (KENALOG) 0.5 % cream^Apply 1 application to affected area twice daily. For rash/itching. Apply sparingly. Avoid face/skin fold.^Disp: 15 g^Rfl: 2 Ferrous Sulfate 325 mg (65 mg iron) tablet^Take 1 tablet by mouth twice daily with meals.^Disp: ^Rfl: 0 MULTI-VITAMIN ORAL^Take by mouth.^Disp: ^Rfl: omega-3 fatty acids 1,000 mg cap^Take 2 g by mouth twice daily.^Disp: ^Rfl: tobramycin-dexAMETHasone (TOBRADEX) 0.3-0.1 % ophthalmic suspension^instill 1 drop into both eyes four times a day^Disp: ^Rfl: trimethoprim-polymyxin (POLYTRIM) 10,000 unit- 1 mg/mL ophthalmic solution^Use 1 Drop in both eyes every 4 hours for 7 days.^Disp: 10 mL^Rfl: 0 (Patient not taking: Reported on 03/28/2023) Cholecalciferol, Vitamin D3, 50 mcg (2,000 unit) cap^Take 1 capsule by mouth once daily.^Disp: 30 capsule^Rfl: 5 FAMILY HISTORY Problem Relation Age of Onset Multiple Sclerosis Mother Breast Cancer Maternal Grandmother 80 Skin Cancer Maternal Grandmother 50 Colon Cancer Maternal Grandfather 60 COPD Maternal Grandfather Breast Cancer Paternal Grandmother at 50 or 60; then again at 60 or 70 Heart Paternal Grandfather Social History Tobacco Use Smoking status: Former Types: Cigarettes Quit date: 09/16/2008 Years since quittin.5 Smokeless tobacco: Never Tobacco comments: had been rare smoker Vaping Use Vaping Use: Never used Substance Use Topics Alcohol use: Yes Comment: Occasionally Drug use: No BP 130/74 Pulse 88 Temp 36.7 C (98 F) (Tympanic) Resp 18 Wt (!) 153.1 kg (337 lb 9.6 oz) LMP 03/25/2023 (Approximate) SpO2 100% BMI 54.49 kg/m Review of Systems Constitutional: Negative for chills, fever and malaise/fatigue. HENT: Positive for sore throat. Negative for congestion, ear discharge, ear pain and sinus pain. Eyes: Negative for blurred vision, pain, discharge and redness. Respiratory: Negative for cough, hemoptysis, sputum production, shortness of breath, wheezing and stridor. Cardiovascular: Negative for chest pain. Gastrointestinal: Negative for abdominal pain, diarrhea, nausea and vomiting. Musculoskeletal: Negative for myalgias. Skin: Negative for itching and rash. Neurological: Negative for dizziness and headaches. Objective Physical Exam Constitutional: General: She is not in acute distress. Appearance: She is not diaphoretic. HENT: Head: Normocephalic. Jaw: No trismus, tenderness, swelling or pain on movement. Right Ear: Tympanic membrane, ear canal and external ear normal. Left Ear: Tympanic membrane, ear canal and external ear normal. Mouth/Throat: Lips: [place]. Mouth: Mucous membranes are moist. Pharynx: Oropharynx is clear. Uvula midline. No pharyngeal swelling, oropharyngeal exudate, posterior oropharyngeal erythema or uvula swelling. Cardiovascular: Rate and Rhythm: Normal rate and regular rhythm. Heart sounds: Normal heart sounds. Pulmonary: Effort: Pulmonary effort is normal. No tachypnea, accessory muscle usage or respiratory distress. Breath sounds: Normal breath sounds. No stridor. No wheezing, rhonchi or rales. Musculoskeletal: Cervical back: Normal range of motion. No tenderness. Skin: General: Skin is warm and dry. Neurological: Mental Status: She is alert and oriented to person, place, and time. ASSESSMENT/PLAN: 1. Sore throat - ICD9: 462, ICD10: J02.9 - STREP A MOLECULAR (POC) - MONOTEST, INFECTIOUS MONO Strep test negative. Diagnosed with viral pharyngitis. Follow-up with ENT if symptoms not improving. Monotest ordered. Patient was educated on supportive therapies. Patient will follow up with primary care provider as needed. Patient was instructed to immediately proceed to emergency room for any new, worsening, or symptoms lasting longer than anticipated. The patient's clinical presentation is otherwise unremarkable at this time. Based on exam and clinical finding, the patient is stable for discharge. Plan of care was discussed with patient. Patient verbalizes understanding and agrees to plan of care. This note was generated using [employer] software. It may contain errors in wording, punctuation, or spelling. Davy Marks APRN.TURRET LATHE SET UP OPERATOR documented in this encounter [facility] 03-23-2023 Note HNO ID: [id number] Author: NETTE Ambrosio Service: ? Author Type: Physician Soft Water Mechanic Type: Progress Notes Filed: 03/23/2023 9:38 AM Note Text: This note was created using [employer]. Subjective Modesta Corcoran is a 42 year old female. HPI 42-year-old female presents for bilateral eye redness and swelling. Patient was seen here yesterday for eye redness and suspected bacterial conjunctivitis. She was started on Polytrim drops. She states that her eyes have gotten worse since yesterday. They are now swollen around the outside, more red and watery. She states are very itchy. They are painful due to the swelling. No pain with eye movement. No vision changes. She does not wear contacts or glasses. She was sick last week with URI symptoms. PAST MEDICAL HISTORY Diagnosis Date Anemia iron deficiency MVP (mitral valve prolapse) POTS (postural orthostatic tachycardia syndrome) Psoriasis Vitamin D deficiency PAST SURGICAL HISTORY Procedure Laterality Date BX BREAST W/DEVICE 1ST LESION STEREOTACTIC GUID 09/21/2014 left DANDC, DIAG AND/OR THERAPEUTIC 08/08/2022 polypectomy HYSTEROSCOPY, DIAGNOSTIC (SEPARATE 08/08/2022 Mirena IUD insertion PAST SURGICAL HISTORY OF 10/27/1991 Ovarion abscess and removal right side PAST SURGICAL HISTORY OF 1996, 1999 right shoulder repair for dislocation ALLERGIES Prilosec [Omeprazole Magnesium] MEDICATIONS olopatadine (PATANOL) 0.1 % ophthalmic solutionUse 1 Drop in both eyes twice daily for 30 days.Disp: 5 mLRfl: 0 predniSONE (DELTASONE) 20 mg tabletTake 2 tablets by mouth once daily for 4 days. Take daily with food.Disp: 8 tabletRfl: 0 trimethoprim-polymyxin (POLYTRIM) 10,000 unit- 1 mg/mL ophthalmic solutionUse 1 Drop in both eyes every 4 hours for 7 days.Disp: 10 mLRfl: 0 triamcinolone acetonide (KENALOG) 0.5 % creamApply 1 application to affected area twice daily. For rash/itching. Apply sparingly. Avoid face/skin fold.Disp: 15 gRfl: 2 Cholecalciferol, Vitamin D3, 50 mcg (2,000 unit) capTake 1 capsule by mouth once daily.Disp: 30 capsuleRfl: 5 Ferrous Sulfate 325 mg (65 mg iron) tabletTake 1 tablet by mouth twice daily with meals.Disp: Rfl: 0 MULTI-VITAMIN ORALTake by mouth.Disp: Rfl: omega-3 fatty acids 1,000 mg capTake 2 g by mouth twice daily.Disp: Rfl: FAMILY HISTORY Problem Relation Age of Onset Multiple Sclerosis Mother Breast Cancer Maternal Grandmother 80 Skin Cancer Maternal Grandmother 50 Colon Cancer Maternal Grandfather 60 COPD Maternal Grandfather Breast Cancer Paternal Grandmother at 50 or 60; then again at 60 or 70 Heart Paternal Grandfather Social History Tobacco Use Smoking status: Former Types: Cigarettes Quit date: 09/16/2008 Years since quittin.5 Smokeless tobacco: Never Tobacco comments: had been rare smoker Vaping Use Vaping Use: Never used Substance Use Topics Alcohol use: Yes Comment: Occasionally Drug use: No Review of Systems Constitutional: Negative for chills and fever. HENT: Negative for congestion, ear pain and sore throat. Eyes: Positive for photophobia, discharge, redness and itching. Negative for pain and visual disturbance. Respiratory: Negative for cough and shortness of breath. Cardiovascular: Negative for chest pain. Gastrointestinal: Negative for diarrhea and vomiting. Objective BP 128/82 Pulse 88 Temp 36.6 ?C (97.8 ?F) (Tympanic) Resp 16 Wt (!) 151.4 kg (333 lb 12.8 oz) LMP 07/11/2022 SpO2 99% BMI 53.88 kg/m? Physical Exam Vitals and nursing note reviewed. Constitutional: General: She is not in acute distress. Appearance: Normal appearance. She is not toxic-appearing. HENT: Nose: Nose normal. Mouth/Throat: Mouth: Mucous membranes are moist. Eyes: Extraocular Movements: Extraocular movements intact. Conjunctiva/sclera: Right eye: Right conjunctiva is injected. Chemosis present. Left eye: Left conjunctiva is injected. Chemosis present. Comments: Bilateral conjunctive are injected with chemosis. PERRLA. EOMI. Vision is grossly intact. She does have some mild periorbital swelling. No significant erythema. No pain with eye movement. Cardiovascular: Rate and Rhythm: Normal rate and regular rhythm. Pulmonary: Effort: Pulmonary effort is normal. Breath sounds: Normal breath sounds. Neurological: Mental Status: She is alert. Assessment and Plan ASSESSMENT/PLAN: 1. Allergic conjunctivitis of both eyes - ICD9: 372.14, ICD10: H10.13 -Started on Polytrim yesterday, eyes are much worse today. She has chemosis, itching and watery eyes. Suspect allergic conjunctivitis. -Rx for prednisone, Rx for atenolol drops. Advised to stop the Polytrim drops. -Low suspicion for periorbital cellulitis at this time as patient has no fevers, symptoms are bilateral and no significant periorbital erythema. -Advised if she develops fevers, pain with eye movement, worsening swelling, go to ER immediate (more content not included)... [facility] 03-23-2023 History of Presen t illness Narrative This note was created using [employer]. Subjective Modesta Corcoran is a 42 year old female. HPI 42-year-old female presents for bilateral eye redness and swelling. Patient was seen here yesterday for eye redness and suspected bacterial conjunctivitis. She was started on Polytrim drops. She states that her eyes have gotten worse since yesterday. They are now swollen around the outside, more red and watery. She states are very itchy. They are painful due to the swelling. No pain with eye movement. No vision changes. She does not wear contacts or glasses. She was sick last week with URI symptoms. PAST MEDICAL HISTORY Diagnosis Date Anemia iron deficiency MVP (mitral valve prolapse) POTS (postural orthostatic tachycardia syndrome) Psoriasis Vitamin D deficiency PAST SURGICAL HISTORY Procedure Laterality Date BX BREAST W/DEVICE 1ST LESION STEREOTACTIC GUID 09/21/2014 left D&C, DIAG AND/OR THERAPEUTIC 08/08/2022 polypectomy HYSTEROSCOPY, DIAGNOSTIC (SEPARATE 08/08/2022 Mirena IUD insertion PAST SURGICAL HISTORY OF 10/27/1991 Ovarion abscess and removal right side PAST SURGICAL HISTORY OF 1996, 1999 right shoulder repair for dislocation ALLERGIES Prilosec [Omeprazole Magnesium] MEDICATIONS olopatadine (PATANOL) 0.1 % ophthalmic solution^Use 1 Drop in both eyes twice daily for 30 days.^Disp: 5 mL^Rfl: 0 predniSONE (DELTASONE) 20 mg tablet^Take 2 tablets by mouth once daily for 4 days. Take daily with food.^Disp: 8 tablet^Rfl: 0 trimethoprim-polymyxin (POLYTRIM) 10,000 unit- 1 mg/mL ophthalmic solution^Use 1 Drop in both eyes every 4 hours for 7 days.^Disp: 10 mL^Rfl: 0 triamcinolone acetonide (KENALOG) 0.5 % cream^Apply 1 application to affected area twice daily. For rash/itching. Apply sparingly. Avoid face/skin fold.^Disp: 15 g^Rfl: 2 Cholecalciferol, Vitamin D3, 50 mcg (2,000 unit) cap^Take 1 capsule by mouth once daily.^Disp: 30 capsule^Rfl: 5 Ferrous Sulfate 325 mg (65 mg iron) tablet^Take 1 tablet by mouth twice daily with meals.^Disp: ^Rfl: 0 MULTI-VITAMIN ORAL^Take by mouth.^Disp: ^Rfl: omega-3 fatty acids 1,000 mg cap^Take 2 g by mouth twice daily.^Disp: ^Rfl: FAMILY HISTORY Problem Relation Age of Onset Multiple Sclerosis Mother Breast Cancer Maternal Grandmother 80 Skin Cancer Maternal Grandmother 50 Colon Cancer Maternal Grandfather 60 COPD Maternal Grandfather Breast Cancer Paternal Grandmother at 50 or 60; then again at 60 or 70 Heart Paternal Grandfather Social History Tobacco Use Smoking status: Former Types: Cigarettes Quit date: 09/16/2008 Years since quittin.5 Smokeless tobacco: Never Tobacco comments: had been rare smoker Vaping Use Vaping Use: Never used Substance Use Topics Alcohol use: Yes Comment: Occasionally Drug use: No Review of Systems Constitutional: Negative for chills and fever. HENT: Negative for congestion, ear pain and sore throat. Eyes: Positive for photophobia, discharge, redness and itching. Negative for pain and visual disturbance. Respiratory: Negative for cough and shortness of breath. Cardiovascular: Negative for chest pain. Gastrointestinal: Negative for diarrhea and vomiting. Objective BP 128/82 Pulse 88 Temp 36.6 C (97.8 F) (Tympanic) Resp 16 Wt (!) 151.4 kg (333 lb 12.8 oz) LMP 07/11/2022 SpO2 99% BMI 53.88 kg/m Physical Exam Vitals and nursing note reviewed. Constitutional: General: She is not in acute distress. Appearance: Normal appearance. She is not toxic-appearing. HENT: Nose: Nose normal. Mouth/Throat: Mouth: Mucous membranes are moist. Eyes: Extraocular Movements: Extraocular movements intact. Conjunctiva/sclera: Right eye: Right conjunctiva is injected. Chemosis present. Left eye: Left conjunctiva is injected. Chemosis present. Comments: Bilateral conjunctive are injected with chemosis. PERRLA. EOMI. Vision is grossly intact. She does have some mild periorbital swelling. No significant erythema. No pain with eye movement. Cardiovascular: Rate and Rhythm: Normal rate and regular rhythm. Pulmonary: Effort: Pulmonary effort is normal. Breath sounds: Normal breath sounds. Neurological: Mental Status: She is alert. Assessment and Plan ASSESSMENT/PLAN: 1. Allergic conjunctivitis of both eyes - ICD9: 372.14, ICD10: H10.13 -Started on Polytrim yesterday, eyes are much worse today. She has chemosis, itching and watery eyes. Suspect allergic conjunctivitis. -Rx for prednisone, Rx for atenolol drops. Advised to stop the Polytrim drops. -Low suspicion for periorbital cellulitis at this time as patient has no fevers, symptoms are bilateral and no significant periorbital erythema. -Advised if she develops fevers, pain with eye movement, worsening swelling, go to ER immediately. She understands. -She will call her eye doctor tomorrow to schedule close follow-up. - course and contagiousness issues discussed, including hand washing. - Instructed to call if high fever, development of periorbital redness or swelling, eye pain, visual changes, concerns or if symptoms persist. Diagnosis and treatment plan were discussed and questions were answered to the patient's satisfaction. Pt acknowledged understanding of concepts and follow up plan. Specific signs and symptoms that would indicate the need for higher level of care were discussed in detail warranting prompt ER evaluation. NETTE Ambrosio documented in this encounter [facility] 03-22-2023 Note HNO ID: [id number] Author: NETTE Ambrosio Service: ? Author Type: Physician Soft Water Mechanic Type: Progress Notes Filed: 03/22/2023 12:42 PM Note Text: This note was created using [employer]. Subjective Modesta Corcoran is a 42 year old female. HPI 42-year-old female presents for bilateral eye irritation and drainage. Symptoms started this morning. States that she had a cold last week. She no longer has congestion or cough. States both her eyes have redness and drainage starting this morning. She does not wear contacts or glasses. No vision changes. No headaches. No other complaints. PAST MEDICAL HISTORY Diagnosis Date Anemia iron deficiency MVP (mitral valve prolapse) POTS (postural orthostatic tachycardia syndrome) Psoriasis Vitamin D deficiency PAST SURGICAL HISTORY Procedure Laterality Date BX BREAST W/DEVICE 1ST LESION STEREOTACTIC GUID 09/21/2014 left DANDC, DIAG AND/OR THERAPEUTIC 08/08/2022 polypectomy HYSTEROSCOPY, DIAGNOSTIC (SEPARATE 08/08/2022 Mirena IUD insertion PAST SURGICAL HISTORY OF 10/27/1991 Ovarion abscess and removal right side PAST SURGICAL HISTORY OF 1996, 1999 right shoulder repair for dislocation ALLERGIES Prilosec [Omeprazole Magnesium] MEDICATIONS triamcinolone acetonide (KENALOG) 0.5 % creamApply 1 application to affected area twice daily. For rash/itching. Apply sparingly. Avoid face/skin fold.Disp: 15 gRfl: 2 Cholecalciferol, Vitamin D3, 50 mcg (2,000 unit) capTake 1 capsule by mouth once daily.Disp: 30 capsuleRfl: 5 Ferrous Sulfate 325 mg (65 mg iron) tabletTake 1 tablet by mouth twice daily with meals.Disp: Rfl: 0 MULTI-VITAMIN ORALTake by mouth.Disp: Rfl: omega-3 fatty acids 1,000 mg capTake 2 g by mouth twice daily.Disp: Rfl: trimethoprim-polymyxin (POLYTRIM) 10,000 unit- 1 mg/mL ophthalmic solutionUse 1 Drop in both eyes every 4 hours for 7 days.Disp: 10 mLRfl: 0 FAMILY HISTORY Problem Relation Age of Onset Multiple Sclerosis Mother Breast Cancer Maternal Grandmother 80 Skin Cancer Maternal Grandmother 50 Colon Cancer Maternal Grandfather 60 COPD Maternal Grandfather Breast Cancer Paternal Grandmother at 50 or 60; then again at 60 or 70 Heart Paternal Grandfather Social History Tobacco Use Smoking status: Former Types: Cigarettes Quit date: 09/16/2008 Years since quittin.5 Smokeless tobacco: Never Tobacco comments: had been rare smoker Vaping Use Vaping Use: Never used Substance Use Topics Alcohol use: Yes Comment: Occasionally Drug use: No Review of Systems Constitutional: Negative for chills and fever. HENT: Negative for congestion, ear pain and sore throat. Eyes: Positive for photophobia, discharge and redness. Negative for pain, itching and visual disturbance. Respiratory: Negative for cough and shortness of breath. Cardiovascular: Negative for chest pain. Gastrointestinal: Negative for diarrhea and vomiting. Objective BP 110/72 Pulse 118 Temp 36.6 ?C (97.9 ?F) Resp 18 Wt (!) 152.4 kg (336 lb) LMP 07/11/2022 SpO2 97% BMI 54.23 kg/m? Physical Exam Vitals and nursing note reviewed. Constitutional: General: She is not in acute distress. Appearance: Normal appearance. She is not toxic-appearing. HENT: Nose: Nose normal. Mouth/Throat: Mouth: Mucous membranes are moist. Pharynx: No oropharyngeal exudate or posterior oropharyngeal erythema. Eyes: General: Vision grossly intact. Extraocular Movements: Extraocular movements intact. Conjunctiva/sclera: Right eye: Right conjunctiva is injected. Exudate present. Left eye: Left conjunctiva is injected. Exudate present. Cardiovascular: Rate and Rhythm: Normal rate and regular rhythm. Pulmonary: Effort: Pulmonary effort is normal. Breath sounds: Normal breath sounds. Neurological: Mental Status: She is alert. Assessment and Plan ASSESSMENT/PLAN: 1. Acute conjunctivitis of both eyes, unspecified acute conjunctivitis type - ICD9: 372.00, ICD10: H10.33 - see medication orders- polytrim - course and contagiousness issues discussed, including hand washing. - Instructed to call if high fever, development of periorbital redness or swelling, eye pain, visual changes, concerns or if symptoms persist. Diagnosis and treatment plan were discussed and questions were answered to the patient's satisfaction. Pt acknowledged understanding of concepts and follow up plan. Specific signs and symptoms that would indicate the need for higher level of care were discussed in detail warranting prompt ER evaluation. NETTE Ambrosio [facility] 01-16-2023 Miscellaneous Notes Additional TC to patient with no answer, VM left. As several attempts have been made to contact patient by phone, MC message sent to patient with providers update and the contact information to schedule EMG if patient agreeable. ENMANUEL Hale Left message for patient to return call Magalys Joseph Patient telephoned. Message left to call office back for update and ask for triage nurse. Jimena Wallace LPN Please let Francine know that I was able to discuss her symptoms with Dr. Hernández and the only extra thing she recommended that we should do besides what we've already ordered/planned is an EMG. This is nerve testing in her arms. Please assist her to schedule this appointment. Erasmo Lal APRN.TIFFANY documented in this encounter [facility] 01-01-2023 Note HNO ID: [id number] Author: Erasmo Lal APRN.CNP Service: ? Author Type: Nurse Practitioner Type: Progress Notes Filed: 01/02/2023 4:17 PM Note Text: Chief Complaint Patient presents with: Muscle Aches Lump: Right armpit HPI Modesta Corcoran is a 42 year old female who presents here today for Above Complaints. Today: Has hx of anemia, large amount of bleeding with her periods. Currently has Mirena IUD-placed by Dr. Robbins-got this placed in July. Periods don't seem to be as bad. Has muscle twitching all over her body. Charley horse type filling to her inner thighs if straightening legs out straight. These flare-ups happen anywhere from 1-3 months at a time. Mother has MS. Has fibrocystic breasts. Grandmothers both had breast cancer in their 70's. Has psoriasis to elbows. No chest pains or SOB. Past medical history, appointments, medications, allergies reviewed. Previous Medical History PAST MEDICAL HISTORY Diagnosis Date Anemia iron deficiency MVP (mitral valve prolapse) POTS (postural orthostatic tachycardia syndrome) Psoriasis Vitamin D deficiency Previous Surgical History PAST SURGICAL HISTORY Procedure Laterality Date BX BREAST W/DEVICE 1ST LESION STEREOTACTIC GUID 09/21/2014 left DANDC, DIAG AND/OR THERAPEUTIC 08/08/2022 polypectomy HYSTEROSCOPY, DIAGNOSTIC (SEPARATE 08/08/2022 Mirena IUD insertion PAST SURGICAL HISTORY OF 10/27/1991 Ovarion abscess and removal right side PAST SURGICAL HISTORY OF 1996, 1999 right shoulder repair for dislocation Family History FAMILY HISTORY Problem Relation Age of Onset Multiple Sclerosis Mother Breast Cancer Maternal Grandmother 80 Skin Cancer Maternal Grandmother 50 Colon Cancer Maternal Grandfather 60 COPD Maternal Grandfather Breast Cancer Paternal Grandmother at 50 or 60; then again at 60 or 70 Heart Paternal Grandfather Patient Allergies ALLERGIES Allergen Reactions Prilosec [Omeprazol* Itching possibly - might have been due to a spice she had eaten. Current Medications Current Outpatient Medications on File Prior to Visit Medication Sig triamcinolone acetonide (KENALOG) 0.5 % cream Apply 1 application to affected area twice daily. For rash/itching. Apply sparingly. Avoid face/skin fold. Cholecalciferol, Vitamin D3, 50 mcg (2,000 unit) cap Take 1 capsule by mouth once daily. Ferrous Sulfate 325 mg (65 mg iron) tablet Take 1 tablet by mouth twice daily with meals. MULTI-VITAMIN ORAL Take by mouth. omega-3 fatty acids 1,000 mg cap Take 2 g by mouth twice daily. Current Facility-Administered Medications on File Prior to Visit Medication iron sucrose 200 mg injection (VENOFER) Social History Social History Tobacco Use Smoking status: Former Types: Cigarettes Quit date: 09/16/2008 Years since quittin.3 Smokeless tobacco: Never Tobacco comments: had been rare smoker Vaping Use Vaping Use: Never used Substance Use Topics Alcohol use: Yes Comment: Occasionally Drug use: No Review of Symptoms REVIEW OF SYSTEMS See HPI, otherwise negative EXAM: BP 120/86 (BP Site: Left Arm, BP Position: Sitting, BP Cuff Size: Regular Adult) Pulse 115 Wt (!) 151.2 kg (333 lb 6.4 oz) LMP 07/11/2022 SpO2 99% BMI 53.81 kg/m? General Appearance: Well appearing, alert, in no acute distress, well-hydrated, well nourished. and Morbidly obese. Lungs: Lungs clear to auscultation. No wheezing, rhonchi, rales.. Heart: RRR without murmur, gallop, or rubs. No ectopy. Breast: Inspection negative. No nipple discharge or bleeding. No palpable mass, No skin changes or dimpling. + fibrocystic breasts-no concerning masses palpated Lymph Nodes-pea sized palpable lymph node to right axilla, nontender Health Maintenance List HEPATITIS B(1 of 3 - 3-dose series) Never done HEPATITIS C SCREENING Never done HIV SCREENING Never done COVID-19 VACCINE(3 - Booster for Moderna series) due on 03/09/2021 INFLUENZA(1) due on 06/27/2022 DEPRESSION ASSESSMENT Never done MAMMOGRAM due on 04/25/2023 PAP TESTING due on 11/02/2023 HPV TESTING due on 11/02/2023 DTAP,TDAP,TD(2 - Td or Tdap) due on 08/17/2024 Data reviewed Previous records, office notes ASSESSMENT/PLAN: 1. Muscle spasm - ICD9: 728.85, ICD10: M62.838 (primary diagnosis) - NIRMALA BLOOD - CCP ANTIBODY IGG - RHEUMATOID FACTOR BL - C-REACTIVE PROTEIN (CRP) - SED RATE WESTERGREN - CBC + DIFF - COMP METABOLIC PANEL - IRON + TIBC - FERRITIN BLD - TSH BLD - T3 BLD - T4 FREE/FREE THYROX - THYROID PEROXIDASE ANTIBODY BLOOD - THYROGLOBULIN AB - HGB A1C - VITAMIN D 25 HYDROXY - VITAMIN B12 BLOOD - EMG(NEURO/NI) 2. Muscle twitch - ICD9: 781.0, ICD10: R25.3 - NIRMALA BLOOD - CCP ANTIBODY IGG - RHEUMATOID FACTOR BL - C-REACTIVE PROTEIN (CRP) - SED RATE WESTERGREN - CBC + DIFF - COMP METABOLIC PANEL - IRON + TIBC - FERRITIN BLD - TSH BLD - T3 BLD - T4 FREE/FR (more content not included)... [facility] 01-01-2023 Instructions Erasmo Lal APRN.TIFFANY - 01/01/2023 5:18 PM EST Message Maria G to make sure she's ok with you waiting until March to do your breast MRI. Have your labs drawn. I'll let you know once I have your MRI ordered and we'll get that scheduled. Let me know if the lymph node in your armpit keeps getting big and we'll do an ultrasound it. Schedule your ultrasound of your armpit lymph node. documented in this encounter [facility] 01-01-2023 History of Presen t illness Narrative Chief Complaint Patient presents with: Muscle Aches Lump: Right armpit HPI Modesta Corcoran is a 42 year old female who presents here today for Above Complaints. Today: Has hx of anemia, large amount of bleeding with her periods. Currently has Mirena IUD-placed by Dr. Robbins-got this placed in July. Periods don't seem to be as bad. Has muscle twitching all over her body. Charley horse type filling to her inner thighs if straightening legs out straight. These flare-ups happen anywhere from 1-3 months at a time. Mother has MS. Has fibrocystic breasts. Grandmothers both had breast cancer in their 70's. Has psoriasis to elbows. No chest pains or SOB. Past medical history, appointments, medications, allergies reviewed. Previous Medical History PAST MEDICAL HISTORY Diagnosis Date Anemia iron deficiency MVP (mitral valve prolapse) POTS (postural orthostatic tachycardia syndrome) Psoriasis Vitamin D deficiency Previous Surgical History PAST SURGICAL HISTORY Procedure Laterality Date BX BREAST W/DEVICE 1ST LESION STEREOTACTIC GUID 09/21/2014 left D&C, DIAG AND/OR THERAPEUTIC 08/08/2022 polypectomy HYSTEROSCOPY, DIAGNOSTIC (SEPARATE 08/08/2022 Mirena IUD insertion PAST SURGICAL HISTORY OF 10/27/1991 Ovarion abscess and removal right side PAST SURGICAL HISTORY OF 1996, 1999 right shoulder repair for dislocation Family History FAMILY HISTORY Problem Relation Age of Onset Multiple Sclerosis Mother Breast Cancer Maternal Grandmother 80 Skin Cancer Maternal Grandmother 50 Colon Cancer Maternal Grandfather 60 COPD Maternal Grandfather Breast Cancer Paternal Grandmother at 50 or 60; then again at 60 or 70 Heart Paternal Grandfather Patient Allergies ALLERGIES Allergen Reactions Prilosec [Omeprazol* Itching possibly - might have been due to a spice she had eaten. Current Medications Current Outpatient Medications on File Prior to Visit Medication Sig triamcinolone acetonide (KENALOG) 0.5 % cream Apply 1 application to affected area twice daily. For rash/itching. Apply sparingly. Avoid face/skin fold. Cholecalciferol, Vitamin D3, 50 mcg (2,000 unit) cap Take 1 capsule by mouth once daily. Ferrous Sulfate 325 mg (65 mg iron) tablet Take 1 tablet by mouth twice daily with meals. MULTI-VITAMIN ORAL Take by mouth. omega-3 fatty acids 1,000 mg cap Take 2 g by mouth twice daily. Current Facility-Administered Medications on File Prior to Visit Medication iron sucrose 200 mg injection (VENOFER) Social History Social History Tobacco Use Smoking status: Former Types: Cigarettes Quit date: 09/16/2008 Years since quittin.3 Smokeless tobacco: Never Tobacco comments: had been rare smoker Vaping Use Vaping Use: Never used Substance Use Topics Alcohol use: Yes Comment: Occasionally Drug use: No Review of Symptoms REVIEW OF SYSTEMS See HPI, otherwise negative EXAM: BP 120/86 (BP Site: Left Arm, BP Position: Sitting, BP Cuff Size: Regular Adult) Pulse 115 Wt (!) 151.2 kg (333 lb 6.4 oz) LMP 07/11/2022 SpO2 99% BMI 53.81 kg/m General Appearance: Well appearing, alert, in no acute distress, well-hydrated, well nourished. and Morbidly obese. Lungs: Lungs clear to auscultation. No wheezing, rhonchi, rales.. Heart: RRR without murmur, gallop, or rubs. No ectopy. Breast: Inspection negative. No nipple discharge or bleeding. No palpable mass, No skin changes or dimpling. + fibrocystic breasts-no concerning masses palpated Lymph Nodes-pea sized palpable lymph node to right axilla, nontender Health Maintenance List HEPATITIS B(1 of 3 - 3-dose series) Never done HEPATITIS C SCREENING Never done HIV SCREENING Never done COVID-19 VACCINE(3 - Booster for Moderna series) due on 03/09/2021 INFLUENZA(1) due on 06/27/2022 DEPRESSION ASSESSMENT Never done MAMMOGRAM due on 04/25/2023 PAP TESTING due on 11/02/2023 HPV TESTING due on 11/02/2023 DTAP,TDAP,TD(2 - Td or Tdap) due on 08/17/2024 Data reviewed Previous records, office notes ASSESSMENT/PLAN: 1. Muscle spasm - ICD9: 728.85, ICD10: M62.838 (primary diagnosis) - NIRMALA BLOOD - CCP ANTIBODY IGG - RHEUMATOID FACTOR BL - C-REACTIVE PROTEIN (CRP) - SED RATE WESTERGREN - CBC + DIFF - COMP METABOLIC PANEL - IRON + TIBC - FERRITIN BLD - TSH BLD - T3 BLD - T4 FREE/FREE THYROX - THYROID PEROXIDASE ANTIBODY BLOOD - THYROGLOBULIN AB - HGB A1C - VITAMIN D 25 HYDROXY - VITAMIN B12 BLOOD - EMG(NEURO/NI) 2. Muscle twitch - ICD9: 781.0, ICD10: R25.3 - NIRMALA BLOOD - CCP ANTIBODY IGG - RHEUMATOID FACTOR BL - C-REACTIVE PROTEIN (CRP) - SED RATE WESTERGREN - CBC + DIFF - COMP METABOLIC PANEL - IRON + TIBC - FERRITIN BLD - TSH BLD - T3 BLD - T4 FREE/FREE THYROX - THYROID PEROXIDASE ANTIBODY BLOOD - THYROGLOBULIN AB - HGB A1C - VITAMIN D 25 HYDROXY - VITAMIN B12 BLOOD - EMG(NEURO/NI) 3. Muscle ache - ICD9: 729.1, ICD10: M79.10 - NIRMALA BLOOD - CCP ANTIBODY IGG - RHEUMATOID FACTOR BL - C-REACTIVE PROTEIN (CRP) - SED RATE WESTERGREN - CBC + DIFF - COMP METABOLIC PANEL - IRON + TIBC - FERRITIN BLD - TSH BLD - T3 BLD - T4 FREE/FREE THYROX - THYROID PEROXIDASE ANTIBODY BLOOD - THYROGLOBULIN AB - HGB A1C - VITAMIN D 25 HYDROXY - VITAMIN B12 BLOOD - EMG(NEURO/NI) 4. Family history of MS (multiple sclerosis) - ICD9: V17.2, ICD10: Z82.0 - NIRMALA BLOOD - CCP ANTIBODY IGG - RHEUMATOID FACTOR BL - C-REACTIVE PROTEIN (CRP) - SED RATE WESTERGREN - CBC + DIFF - COMP METABOLIC PANEL - IRON + TIBC - FERRITIN BLD - TSH BLD - T3 BLD - T4 FREE/FREE THYROX - THYROID PEROXIDASE ANTIBODY BLOOD - THYROGLOBULIN AB - HGB A1C - VITAMIN D 25 HYDROXY - VITAMIN B12 BLOOD - EMG(NEURO/NI) 5. Iron deficiency anemia, unspecified iron deficiency anemia type - ICD9: 280.9, ICD10: D50.9 - CBC + DIFF - IRON + TIBC - FERRITIN BLD 6. Psoriasis - ICD9: 696.1, ICD10: L40.9 - NIRMALA BLOOD - CCP ANTIBODY IGG - RHEUMATOID FACTOR BL - C-REACTIVE PROTEIN (CRP) - SED RATE WESTERGREN - CBC + DIFF - COMP METABOLIC PANEL - IRON + TIBC - FERRITIN BLD - TSH BLD - T3 BLD - T4 FREE/FREE THYROX - THYROID PEROXIDASE ANTIBODY BLOOD - THYROGLOBULIN AB - HGB A1C - VITAMIN D 25 HYDROXY - VITAMIN B12 BLOOD 7. Lymphadenopathy, axillary - ICD9: 785.6, ICD10: R59.0 - US AXILLA ONLY RT 8. Vitamin D deficiency - ICD9: 268.9, ICD10: E55.9 - VITAMIN D 25 HYDROXY 9. Arthralgia of multiple sites - ICD9: 719.49, ICD10: M25.50 - NIRMALA BLOOD - CCP ANTIBODY IGG - RHEUMATOID FACTOR BL - C-REACTIVE PROTEIN (CRP) - SED RATE WESTERGREN - CBC + DIFF - COMP METABOLIC PANEL - IRON + TIBC - FERRITIN BLD - TSH BLD - T3 BLD - T4 FREE/FREE THYROX - THYROID PEROXIDASE ANTIBODY BLOOD - THYROGLOBULIN AB - HGB A1C - VITAMIN D 25 HYDROXY - VITAMIN B12 BLOOD 10. Screening for thyroid disorder - ICD9: V77.0, ICD10: Z13.29 - TSH BLD - T3 BLD - T4 FREE/FREE THYROX - THYROID PEROXIDASE ANTIBODY BLOOD - THYROGLOBULIN AB 11. Screening for diabetes mellitus - ICD9: V77.1, ICD10: Z13.1 - CBC + DIFF - COMP METABOLIC PANEL - HGB A1C 12. Encounter for vitamin deficiency screening - ICD9: V77.99, ICD10: Z13.21 - VITAMIN B12 BLOOD Erasmo Lal APRN.CNP documented in this encounter [facility] 08-15-2022 Miscellaneous Notes I would say 2 weeks. Brooke Long MD Patient had hysteroscopy, D&C, polypectomy and Mirena insertion on 08/08/22. DM not back in office until next week. Darcy Zaragoza RN documented in this encounter [facility] 08-13-2022 Miscellaneous Notes Patient notified. Feeling well overall and bleeding is light. Post op scheduled for 09/10/22. Darcy Zaragoza RN Left message for patient to call office. Esthela Hess RN Please see how patient is feeling s/p Hysteroscopy, D&C, polypectomy, IUD insertion. Pathology is benign- c/w Polyp and dyssynchronous endometrium. I will see her in 4-6 weeks for IUD check documented in this encounter [facility] 07-29-2022 History and physical note Pre-Op History and Physical HPI: The patient is a 41 year old female presenting for pre-operative visit. She is scheduled for Hysteroscopy D&C and polypectomy with symphion and insertion of Mirena IUD, for AUB, Anemia, endometrial polyp on 08/08/22. Procedure discussed along with risks, benefits and complications. Other alternatives discussed for management. Consent form signed? Yes. PAST MEDICAL HISTORY Diagnosis Date Anemia iron deficiency MVP (mitral valve prolapse) POTS (postural orthostatic tachycardia syndrome) Psoriasis Vitamin D deficiency PAST SURGICAL HISTORY Procedure Laterality Date BX BREAST W/DEVICE 1ST LESION STEREOTACTIC GUID 09/21/14 left PAST SURGICAL HISTORY OF 1991 Ovarion abscess and removal right side PAST SURGICAL HISTORY OF 1996, 1999 right shoulder repair for dislocation Current Outpatient Medications Medication Sig Dispense Refill Cholecalciferol, Vitamin D3, 50 mcg (2,000 unit) cap Take 1 capsule by mouth once daily. 30 capsule 5 Ferrous Sulfate 325 mg (65 mg iron) tablet Take 1 tablet by mouth twice daily with meals. 0 triamcinolone acetonide (KENALOG) 0.5 % cream Apply 1 application to affected area twice daily. For rash/itching. Apply sparingly. Avoid face/skin fold. 15 g 2 MULTI-VITAMIN ORAL Take by mouth. omega-3 fatty acids 1,000 mg cap Take 2 g by mouth twice daily. Current Facility-Administered Medications Medication Dose Route Frequency Provider Last Rate Last Admin iron sucrose 200 mg injection (VENOFER) 200 mg INTRAVENOUS 2/WK Jaylene Robbins MD ALLERGIES: Prilosec [Omeprazole Magnesium] PERSONAL HISTORY: Social History Tobacco Use Smoking status: Former Types: Cigarettes Quit date: 09/16/2008 Years since quittin.8 Smokeless tobacco: Never Tobacco comments: had been rare smoker Vaping Use Vaping Use: Never used Substance Use Topics Alcohol use: Yes Comment: Occasionally Drug use: No FAMILY HISTORY: FAMILY HISTORY Problem Relation Age of Onset Multiple Sclerosis Mother Breast Cancer Maternal Grandmother 80 Skin Cancer Maternal Grandmother 50 Colon Cancer Maternal Grandfather 60 COPD Maternal Grandfather Breast Cancer Paternal Grandmother at 50 or 60; then again at 60 or 70 Heart Paternal Grandfather REVIEW OF SYMPTOMS: negative except as noted above PHYSICAL EXAMINATION: VITALS: Blood pressure 120/76, height 5' 6 (1.676 m), weight (!) 325 lb (147.4 kg), last menstrual period 07/11/2022. GENERAL: The patient is well nourished, well hydrated in no acute distress. , The patient is oriented to time, place, and person. NECK: full range of motion IMPRESSION: 41yo with AUB, EM polyp, anemia PLAN: Hysteroscopy, D&C, polypectomy, MIRENA IUD insertion Pt has been counseled on risks/benefits and alternatives of surgery including but not limited to anesthesia, bleeding, infection, uterine perforation with subsequent injury to pelvic structures including bowel, bladder, ureters and vessels. Pt wishes to proceed with surgery at this time. Mirena IUD ordered Consent signed Pre and Post op instructions reviewed will see patient at 4-6 weeks post op to check IUD placement I have reviewed and updated past medical and surgical history, medications and allergies Jaylene Robbins MD documented in this encounter [facility] 07-11-2022 Miscellaneous Notes Patient scheduled. Huma Levi MA Patient called back she would like to have surgery on 08/08 at [facility]. Pre Op appointment scheduled. product safety technical assistant notified. Madeleine Armstrong RN Left message to call office. Next available date for surgery at [facility] with Dr. Robbins is 07/18/2022 or 08/08/2022. Patient will need a pre-op appointment documented in this encounter [facility] 07-09-2022 Miscellaneous Notes Surgery sheet to used car sales supervisor. Madeleine Armstrong RN Ordered. Surgery sheet filled out. Iud referral placed Patient notified. She does want aygestin taper. Pharmacy updated. Surgery sheet to DM. Darcy Zaragoza RN Left message for patient to call office. Surgery sheet to DM. Darcy Zaragoza RN Yes, we can do Hysteroscopy, D&C, Polypectomy with Mirena IUD insertion scheduled here. Please place blue paper in office. I will see her for PRE OP. Labs ordered. Can give aygestin taper if desired Patient calling office in regards to ongoing heavy periods. She was referred to [facility] for hysterectomy and and states her appointments with [facility] keep getting cancelled and pushed back. Patient was told that she needed to have polyp removed and IUD inserted before proceeding with hysterectomy. Patient wanting to know if Dr. Robbins would be able to do this as it is hard to get to main campus. Patient is also wanting to know if iron levels could be ordered as she has had continued heavy bleeding with periods. Most recent period started on Friday. Madeleine Armstrong RN documented in this encounter [facility] 06-20-2022 Miscellaneous Notes AMBULATORY PATIENT EDUCATION RADIOLOGY TOPIC: Procedure/Surgery: STEREO BX RIGHT REAST READINESS TO LEARN COGNITIVE ABILITY: Alert and oriented MOTIVATION TO LEARN: Eager FAMILY SUPPORT: None - Unavailable/disinterested INSTRUCTION PROVIDED TO: Patient PATIENT LEARNS BEST BY: Individual Instruction Written Instruction - Hand-outs FACTORS AFFECTING LEARNING: None PHYSICAL LIMITATIONS AFFECTING LEARNING: None LEARNING RESPONSE Radiology Procedures Breast BX, Vacuum Assist and Clip Deployment METHOD OF INSTRUCTION: Individual instruction PATIENT / FAMILY RESPONSE: Performs skill independently: Wound care FOLLOW-UP PLAN: Follow up phone call. SUPPLEMENTAL MATERIAL: Homegoing instructions REFERRAL (RECOMMENDATION): None documented in this encounter [facility] 05-29-2022 History of Presen t illness Narrative Radiology Service Progress Note PATIENT NAME: Modesta Corcoran DATE OF SERVICE: May 29, 2022 TIME: 4:02 PM PATIENT IDENTITY VERIFICATION COMPLETED USING TWO (2) IDENTIFIERS: Name and Date of confirmed by patient verbally. FALL SCREENING: Has the patient had 2 falls in the last year or 1 fall with injury or currently using an Ambulatory Assistive Device (Walker, Cane, Wheelchair, Crutches, etc.)? No PATIENT GENDER DATA: Female. status: : No status: NO. PATIENT RELEVANT IMPLANT DATA REVIEWED: Not Applicable RADIOLOGY DEPARTMENT: Mammography PERIPHERAL IV DATA: Not applicable SIGNED BY: Kianna Solorzano [employer] May 29, 2022 4:02 PM documented in this encounter [facility] 05-01-2022 Miscellaneous Notes Pt. informed via My Chart. Malina Heller LPN Please inform patient that I would be more comfortable with her trying oral Contrave or Qsymia or Injectable Saxenda. Once she is aware of which one she would like to try, please make her an appt with SANNA Pinedo or [facility] for rx Leonard Hernández DO Images from the original note were not included. Modesta Corcoran Wstr Famp My Chart Rx Pool Hi! I m ok with paying out of pocket for the Plenity. Have you ever prescribed this before? I see you need a prescription from your doctor. If you don t think this is a good option for me is there anything else I could try? Thank you!! documented in this encounter [facility] 04-26-2022 Miscellaneous Notes Left message on voicemail that orders have been placed ordered Pt calling and reports that she was able to view her mammogram results via [employer] and wanted the orders placed. Pt is aware that you will be out of the office until Friday. Please see pended order below. Sendy Toribio LPN documented in this encounter [facility] 04-25-2022 Miscellaneous Notes April 25, 2022 PID: [id number] Modesta Corcoran [address] [place] [address] Dear Ms. Corcoran, Your recent breast imaging exam on 04/25/2022 showed a possible finding that requires additional imaging studies for a complete evaluation. Most such findings are probably benign (not cancer). If you have a healthcare provider who ordered/prescribed your screening mammogram: Please call [phone] or [phone]: [phone] to schedule an appointment for your additional imaging (if you have not already done so). If you DO NOT have a healthcare provider (ie you did not have an order/prescription for your screening mammogram): Please call to schedule an appointment for your additional imaging (if you have not already done so). You must have an order/prescription from your physician when calling to schedule your appointment. If your order/prescription is not electronic, you must bring the hard copy with you on the day of your exam to avoid delays. Your imaging studies and reports are kept on file at [facility] as part of your permanent medical record, and are available for your continuing care. Thank you for allowing us to help in meeting your health care needs. Sincerely, Dr. Raya Interpreting Radiologist [facility] (Additional imaging) documented in this encounter [facility] 04-25-2022 History of Presen t illness Narrative Radiology Service Progress Note PATIENT NAME: Modesta Corcoran DATE OF SERVICE: April 25, 2022 TIME: 7:42 AM PATIENT IDENTITY VERIFICATION COMPLETED USING TWO (2) IDENTIFIERS: Name and Date of confirmed by patient verbally. FALL SCREENING: Has the patient had 2 falls in the last year or 1 fall with injury or currently using an Ambulatory Assistive Device (Walker, Cane, Wheelchair, Crutches, etc.)? No PATIENT GENDER DATA: Female. status: : No status: NO. PATIENT RELEVANT IMPLANT DATA REVIEWED: Not Applicable RADIOLOGY DEPARTMENT: Mammography PERIPHERAL IV DATA: Not applicable SIGNED BY: Jo Frye [employer] April 25, 2022 7:42 AM documented in this encounter [facility] 04-18-2022 History of Presen t illness Narrative Modesta Corcoran presents for strength and conditioning coach ultrasound. Please see report under the imaging tab. Velasquez Cortez MD documented in this encounter [facility] 04-05-2022 History of Presen t illness Narrative Images from the original note were not included. [facility] [place] SECTION FOR MINIMALLY INVASIVE GYNECOLOGIC SURGERY OUTPATIENT VISIT DATE 04/05/2022 OUTPATIENT VISIT TYPE CONSULT PRIMARY CARE PHYSICIAN: Leonard Hernández [address] [phone] CHIEF COMPLAINT: AUB Consultation requested by Dr Marion Robbins in [place] for an opinion regarding Modesta Corcoran , and my final recommendations will be communicated back to the requesting physician by way of shared medical record or letter via US mail. HISTORY OF PRESENT ILLNESS: Modesta Corcoran is a pleasant 41 year old (VD x 2; 19, 13 yo; not on any Contraception) female who presents with a history of ABNORMAL UTERINE BLEEDING. Periods have always been heavy since start. Had been anemic since 15 yoa. In clinic today, pt reports having AUB for the past 1 year(s). Her most bothersome sxs include Heavy bleeding She notes her periods are every 28-30 days, last 5-6 days, with heavy heavy flow. Pt soaks her pad/tampon within 1 hour, and does pass clots with no/association of cramping with menses. \ Gushes with her periods. Soaking 3 bathroom towels. Makes it difficult to go to work Recent Hgb: 8.9 gm/dL. In February 2022 S/p IV iron infusions x 5. Finished this week. Had been on OCPs in past. Discontinued due to no benefit. Periods remained heavy. Prefers not to use IUD. Pt reports she does not desire future child bearing and is currently sexually active. From a gynecologic perspective patient has had a previous exp laparotomy 1991, left ovary removed due to abscess She has had the following work up thus far: Imaging: Oct 2020 RESULT: Uterus size: 10.6 x 6.2 x 5.3 cm -Orientation: Slightly Retroverted -Myometrium: Slightly heterogeneous with a 0.6 x 3.1 x 2.6 cm anterior body fibroid. -Endometrial echo complex: 7.1 mm -Cervix: normal Right ovary: 4.1 x 3.4 x 2.9 cm. Normal sonographic appearance. There are normal follicular changes with a 3.3 x 2.8 x 2.0 cm unilocular ovarian cyst which is almost certainly benign.. Arterial and venous vascular flow is identified. Left ovary: Surgically absent. No abnormal adnexal masses. Free fluid: None She has had an endometrial biopsy in 06/2021 FINAL DIAGNOSIS Endometrium, biopsy: - Fragments of benign endometrial polyp - Secretory pattern endometrium. IMAGING/LABS: US: 11/10/2020 Mild leiomyomatous change. Unilocular ovarian cyst which is almost certainly benign. Past Gynecologic History: Menarche:12 LMP: 03/24/22 Last pap cytology: 10/2018 History of abnormal history History of STI: HPV History of PID: No Past Obstetrical History: Vaginal delivery: 2 Section: 0 Ectopic: 0 Miscarriage: 0 Past Medical History: PAST MEDICAL HISTORY Diagnosis Date Anemia iron deficiency MVP (mitral valve prolapse) POTS (postural orthostatic tachycardia syndrome) Psoriasis Vitamin D deficiency Past Surgical History: PAST SURGICAL HISTORY Procedure Laterality Date BX BREAST W/DEVICE 1ST LESION STEREOTACTIC GUID 09/21/14 left PAST SURGICAL HISTORY OF 1991 Ovarion abscess and removal right side PAST SURGICAL HISTORY OF 1996, 1999 right shoulder repair for dislocation Family History: FAMILY HISTORY Problem Relation Age of Onset Multiple Sclerosis Mother Breast Cancer Maternal Grandmother 80 Skin Cancer Maternal Grandmother 50 Colon Cancer Maternal Grandfather 60 COPD Maternal Grandfather Breast Cancer Paternal Grandmother at 50 or 60; then again at 60 or 70 Heart Paternal Grandfather Social History: Social History Tobacco Use Smoking status: Former Smoker Types: Cigarettes Quit date: 09/16/2008 Years since quittin.5 Smokeless tobacco: Never Used Tobacco comment: had been rare smoker Vaping Use Vaping Use: Never used Substance Use Topics Alcohol use: Yes Comment: Occasionally Drug use: No Current Outpatient Medications Medication Sig norethindrone (AYGESTIN) 5 mg tablet Take TID until bleeding stops then BID x 3 days then daily for 5 days. (Patient not taking: Reported on 03/08/2022 ) triamcinolone acetonide (KENALOG) 0.5 % cream Apply 1 application to affected area twice daily. For rash/itching. Apply sparingly. Avoid face/skin fold. Cholecalciferol, Vitamin D3, 50 mcg (2,000 unit) cap Take 1 capsule by mouth once daily. Ferrous Sulfate 325 mg (65 mg iron) tablet Take 1 tablet by mouth twice daily with meals. MULTI-VITAMIN ORAL Take by mouth. omega-3 fatty acids 1,000 mg cap Take 2 g by mouth twice daily. Current Facility-Administered Medications Medication Dose Route Frequency iron sucrose 200 mg injection (VENOFER) 200 mg INTRAVENOUS 2/WK Allergies As of Date: 04/05/2022 Allergen Noted Reaction PRILOSEC [OMEPRAZOLE MAGNESIUM] 01/01/2016 Itching Fully Assessed 03/08/2022 REVIEW OF SYSTEMS: POSITIVES IN BOLD Constitutional: Denies fever or chills Eyes: Denies change in visual acuity HENT: Denies nasal congestion or sore throat Respiratory: Denies cough or shortness of breath Cardiovascular: Denies chest pain or edema GI: Denies abdominal pain, nausea, vomiting, bloody stools or diarrhea : Denies dysuria Musculoskeletal: Denies back pain or joint pain Integument: Denies rash Neurologic: Denies headache, focal weakness or sensory changes Endocrine: Denies polyuria or polydipsia Lymphatic: Denies swollen glands Psychiatric: Denies depression or anxiety PHYSICAL EXAMINATION: Vital Signs: There were no vitals filed for this visit. There is no height or weight on file to calculate BMI. General appearance: Well appearing, alert, in no acute distress, well-hydrated, well nourished. Skin: Skin color, texture, turgor normal, no suspicious rashes or lesions PELVIC EXAMINATION: Not repeated IMPRESSION: Ms. Corcoran is a 41 year old female who presents today with Abnormal uterine bleeding (aub) Iron deficiency anemia due to chronic blood loss. PLAN: Repeat TVUS here Needs more thorough endometrial evaluation . Last EMBx showed polyp. Consider office (vs under anesthesia ) hysteroscopy and insertion of Mirena IUD Surgical risks - markedly high BMI. Consider weight management program now. And still consider hysterectomy after weight loss if the Mirena IUD and/or other hormonal management fails Written and verbal health teaching given to patient, patient verbalizes understanding and agrees with treatment plan. Katarina Hernandez MD Medical Decision Making: Problems: High: Chronic illness with severe change Risk: High: High risk from testing/treatment Medical Decision Making Level: 5 - High documented in this encounter [facility] 03-11-2022 Miscellaneous Notes Noted. Thank you. Shantelle Fletcher APRN.CNP TC to patient who verifies that all information listed below regarding her OB-STRATEGY MANAGER is correct. She was also given provider's message about the Vitamin D3 and verbalizes understanding. Patient has no questions at this time. ENMANUEL Hale Please call patient and let her know that I got her blood work results. I see she saw her OB-STRATEGY MANAGER r/t abnormal uterine bleeding and extreme blood loss which explains her very low hemoglobin and iron levels. I see they have set her up with iron infusions and scheduled hysterectomy surgery to address this issue. Please verify this is all correct. The other blood work is all normal. Vitamin D is slightly low which I recommend taking a daily OTC supplement of 5000 units of Vitamin D3 daily. I see she used to take 2000 units daily but seems this has awhile ago. Increase to 5000 units daily. Otherwise, continue with STRATEGY MANAGER plan of care at this moment. Thank you, Shantelle Fletcher APRN.CNP documented in this encounter [facility] 03-08-2022 Miscellaneous Notes Patient notified Contacted [facility] Outpatient infusion. They can get patient in within a matter of days. Orders and PA completed and faxed to [facility]. Left message for patient to call office. Please let her know [facility] will be calling her to set up an appointment so she doesn't have to wait until March. Etshela Hess RN Patient was referred to [facility] and has consult w/ physician 04/05/2022 Please advise when surgery is. Currently booking out into the first week of March. Nurys Membreno Please assist patient with setting up Iron transfusions for abnormal uterine bleeding. Has an upcoming surgery with Dr. Robbins. Venofer orders have been placed. Thank you. Hemoglobin (g/dL) Date Value 03/07/2022 8.9 ordered Venofer orders pending. Please file. Will then forward message to Hem/Onc to assist patient with scheduling. When is her surgery? Esthela Hess RN documented in this encounter [facility] 03-08-2022 History of Presen t illness Narrative Modesta Corcoran is a 41 year old female who presents for concerns regarding heavy vaginal bleeding. Patient states she will have gushes of heavy bleeding that she has to change her clothes at soaked on the floor. Patient reports occasional feelings of dizziness and weakness. Patient states today she does not feel that way but she does have tiredness in her legs. Patient denies chest pain, shortness of breath or dizziness today. Her most recent hemoglobin is 8.9. Patient states she is taking an iron supplement but can only tolerate it once per day. Patient states she is tired of bleeding all the time and would like to proceed with surgical intervention with a hysterectomy. Patient understands that she has high risk and is willing to go see minimally invasive gynecologic surgery for this. Patient was scheduled for hysteroscopy, D&C, polypectomy with possible Mirena IUD. Patient declines a surgery now and would like to have a hysterectomy. OB History T0 L2 SAB0 IAB0 Ectopic0 Multiple0 Live Births0 Comment: Menarche: 11; Age at 1st : 22; Premenopausal LMP- 12/16/21 [employer] History LMP: 12/16/2021 (Exact Date), Having periods Age at Menarche: Age at First : Age at Menopause: [employer] History Comments: Sexual Activity: Yes; Male Contraception: Pill PAST MEDICAL HISTORY Diagnosis Date Anemia iron deficiency MVP (mitral valve prolapse) POTS (postural orthostatic tachycardia syndrome) Psoriasis Vitamin D deficiency PAST SURGICAL HISTORY Procedure Laterality Date BX BREAST W/DEVICE 1ST [facility] GUID 09/21/14 left PAST SURGICAL HISTORY OF 1991 Ovarion abscess and removal right side PAST SURGICAL HISTORY OF 1996, 1999 right shoulder repair for dislocation FAMILY HISTORY Problem Relation Age of Onset Multiple Sclerosis Mother Breast Cancer Maternal Grandmother 80 Skin Cancer Maternal Grandmother 50 Colon Cancer Maternal Grandfather 60 COPD Maternal Grandfather Breast Cancer Paternal Grandmother at 50 or 60; then again at 60 or 70 Heart Paternal Grandfather Social History Tobacco Use Smoking status: Former Smoker Types: Cigarettes Quit date: 09/16/2008 Years since quittin.4 Smokeless tobacco: Never Used Tobacco comment: had been rare smoker Vaping Use Vaping Use: Never used Substance Use Topics Alcohol use: Yes Comment: Occasionally Drug use: No Current Outpatient Medications Medication Sig norethindrone (AYGESTIN) 5 mg tablet Take TID until bleeding stops then BID x 3 days then daily for 5 days. triamcinolone acetonide (KENALOG) 0.5 % cream Apply 1 application to affected area twice daily. For rash/itching. Apply sparingly. Avoid face/skin fold. Ferrous Sulfate 325 mg (65 mg iron) tablet Take 1 tablet by mouth twice daily with meals. MULTI-VITAMIN ORAL Take by mouth. omega-3 fatty acids 1,000 mg cap Take 2 g by mouth twice daily. Cholecalciferol, Vitamin D3, 50 mcg (2,000 unit) cap Take 1 capsule by mouth once daily. No current facility-administered medications for this visit. Allergies As of Date: 03/08/2022 Allergen Noted Reaction PRILOSEC [OMEPRAZOLE MAGNESIUM] 01/01/2016 Itching Fully Assessed 03/08/2022 REVIEW OF SYSTEMS Abdomen: no pain Bladder: no dysuria.. Expanded ROS: GENERAL: Negative for fever Allergies and current medication updated:Yes EXAM: BP 132/80 Wt 322 lb (146.1kg) LMP 03/04/2022 GENERAL: pleasant, female in no apparent distress HEENT: Normocephalic, atraumatic, mucus membranes moist and no lesions NECK: full range of motion DERMATOLOGY: without lesions BREAST: deferred NEURO: alert and oriented x3,exam grossly non-focal ASSESSMENT AND PLAN: Encounter Diagnosis ICD-10-CM 1. Abnormal uterine bleeding (AUB) N93.9 CONSULT TO MINIMALLY INVASIVE GYNECOLOGIC SURGERY 2. Iron deficiency anemia due to chronic blood loss D50.0 CONSULT TO MINIMALLY INVASIVE GYNECOLOGIC SURGERY 3. Uterine leiomyoma, unspecified location D25.9 4. I do suspect she may have adenomyosis based on her ultrasound report that shows a heterogeneous myometrium and her bleeding pattern. Discussed with the patient that although a ablation is not contraindicated at this not my recommendation based on her increased risk for endometrial cancer due to obesity. Also has a high risk for failure due to her age and possible adenomyosis. Patient would like consult to minimally invasive gynecologic surgery for hysterectomy 5. IV iron ordered bleeding precautions reviewed with the patient 6. She did not start the p.o. Aygestin. My recommendation is for her to pick that up and start taking it now to prevent further bleeding. Medical Decision Making: Problems: High: Chronic illness with severe change Risk: Moderate: Drug management Medical Decision Making Level: 4 - Moderate Jaylene Santamaria MD documented in this encounter [facility] 03-08-2022 Miscellaneous Notes Called patient. Denies dizziness. Having fatigue and some SOB. Her legs felt achy last night. Not sure if that's related. States her bleeding slowed down, but is heavier today. Already taking Iron supplement once a day because twice a day upsets her stomach. Appointment time opened up this morning. Patient to arrive at 9:40 AM. Esthela Hess RN Please call and see how patient is feeling? She is anemic based on most recent CBC result. Does she have any dizziness, SOB? How is her bleeding today? Is it slowing? If not she may need to be evaluated in office. Please see if we can get a sooner surgery date for her- ok to add over lunch when I am in office. She needs to start FERROUS SULFATE 325mg BID (over the counter) Left message to call office. Next available date for surgery is 04/25 @ [facility] If she is she will need an order for MIRENA iud placed for referral Left detailed message on patient's voicemail that DM recommends placing Mirena IUD at time of her surgery. Please confirm patient is agreeable with this. Esthela Hess RN Patient notified. Will have CBC drawn tomorrow morning. Would like to proceed with surgical option. Surgery sheet to DM. Esthela Hess RN Aygestin taper ordered. Cbc ordered. I would recommend MIRENA IUD for her as discussed previously. Can consider proceeding with Hysteroscopy, D&C polypectomy as discussed previously based on EMB results done 06/2021 Patient called stating that she started her menses yesterday with spotting and she woke up and had a gush of blood with clots. Patient reports that she is currently having to change her pad every 1 to 1.5 hours and states she typically has heavy bleeding the first 2-3 days of menses then bleeding slows down.. Patient states that she gets lightheaded with quick movements and when going from sitting to standing and has a headache. Denies CP, no SOB. Patient states that she is currently taking an iron supplement d/t h/o anemia and states that every other menses has been heavy. Patient asking if she can be prescribed a medication to slow her bleeding? Is currently taking ibuprofen for cramping. Can leave a detailed message if patient does not answer documented in this encounter [facility] 03-06-2022 Miscellaneous Notes See 03/06/22 phone note. Esthela Hess RN Left message for patient to call office. Esthela Hess RN documented in this encounter [facility] 02-25-2022 Miscellaneous Notes See pt message and advise. Maria Isabel Timmons Ma documented in this encounter [facility] Evaluation + Plan note No data available for this section [facility] Heather Badillo [facility] Diagnosis Episode of heavy vaginal bleeding- Primary [facility] Diagnosis Abnormal uterine bleeding (AUB)- Primary Iron deficiency anemia due to chronic blood loss Iron deficiency anemia secondary to blood loss (chronic) Uterine leiomyoma, unspecified location [facility] Diagnosis Abnormal uterine bleeding (AUB) Iron deficiency anemia due to chronic blood loss Iron deficiency anemia secondary to blood loss (chronic) [facility] [place] [facility] Diagnosis Abnormal uterine bleeding (AUB)- Primary [facility] [place] [facility] Diagnosis Encounter for screening mammogram for high-risk patient [facility] [place] [facility] Diagnosis Abnormal mammogram- Primary Abnormal mammogram, unspecified [facility] [place] [facility] Diagnosis Abnormal mammogram Abnormal mammogram, unspecified [facility] [place] [facility] Diagnosis Abnormal mammogram- Primary Abnormal mammogram, unspecified [facility] [place] [facility] Diagnosis Abnormal mammogram Abnormal mammogram, unspecified [facility] [place] [facility] Diagnosis Iron deficiency anemia due to chronic blood loss- Primary Iron deficiency anemia secondary to blood loss (chronic) Abnormal uterine bleeding (AUB) [facility] [place] [facility] Diagnosis Abnormal uterine bleeding (AUB)- Primary Endometrial polyp Polyp of corpus uteri Iron deficiency anemia due to chronic blood loss Iron deficiency anemia secondary to blood loss (chronic) Pre-op exam Preoperative examination, unspecified [facility] [place] [facility] Diagnosis Muscle spasm- Primary Spasm of muscle Muscle twitch Abnormal involuntary movements Muscle ache Mylagia and myositis, unspecified Family history of MS (multiple sclerosis) Family history of other neurological diseases Iron deficiency anemia, unspecified iron deficiency anemia type Psoriasis Other psoriasis Lymphadenopathy, axillary Enlargement of lymph nodes Vitamin D deficiency Unspecified vitamin D deficiency Arthralgia of multiple sites Pain in joint, multiple sites Screening for thyroid disorder Screening for diabetes mellitus Encounter for vitamin deficiency screening Screening for other and unspecified endocrine, nutritional, metabolic, and immunity disorders [facility] [place] [facility] Diagnosis Abnormal mammogram- Primary Abnormal mammogram, unspecified [facility] [place] [facility]* Diagnosis Allergic conjunctivitis of both eyes- Primary Other chronic allergic conjunctivitis [facility] [place] [facility]* Diagnosis Sore throat- Primary Acute pharyngitis [facility] [place] [facility]* Diagnosis Abnormal mammogram- Primary Abnormal mammogram, unspecified Fibrocystic breast changes of both breasts Increased risk of breast cancer Other specified personal history presenting hazards to health Family history of breast cancer Family history of malignant neoplasm of breast [facility] [place] [facility]* Diagnosis Pain of upper abdomen Abdominal pain, other specified site [facility] [place] [facility]* Diagnosis Other iron deficiency anemia- Primary Abnormal CBC Other abnormal blood chemistry Poor iron absorption Other specified intestinal malabsorption [facility] [place] [facility] Diagnosis Abnormal finding on imaging- Primary Other nonspecific (abnormal) findings on radiological and other examinations of body structure [facility] [place] [facility]* Diagnosis Smell disturbance- Primary Disturbances of sensation of smell and taste Iron deficiency anemia due to chronic blood loss Iron deficiency anemia secondary to blood loss (chronic) Family history of MS (multiple sclerosis) Family history of other neurological diseases Muscle spasm Spasm of muscle Muscle twitch Abnormal involuntary movements Muscle ache Mylagia and myositis, unspecified Morbid obesity with BMI of 50.0-59.9, adult (HCC) Morbid obesity Motor neuron disease (HCC) Amyotrophic lateral sclerosis documented in this encounter [facility] Discharge instructions No data available for this section [facility] Progress note No data available for this section [facility] Reason for referral (narrative)* Diagnostic Procedure Only (Routine) - Authorized Specialty Diagnoses / Procedures Referred By Danny t Referred To Contact [facility] Diagnoses Abnormal uterine bleeding (AUB) Iron deficiency anemia due to chronic blood loss Procedures PELVIC US WHI US PELVIC NONOBSTETRIC REAL-TIME IMAGE COMPLETE Katarina Hernandez MD [address] [place] [address] [facility] [address] [place] [address] Referral ID Status Reason Start Date Expiration Date Visits Requested Visits Authorized [id number] Authorized Auto-Generat ed Referral 04/05/2022 10/26/2022 1 1 * Consult, Test, Treat (Routine) - Authorized Specialty Diagnoses / Procedures Referred By Contac t Referred To Contact Diagnoses Abnormal uterine bleeding (AUB) Iron deficiency anemia due to chronic blood loss Procedures CONSULT TO MINIMALLY INVASIVE GYNECOLOGIC SURGERY OFFICE/OUTPATIENT [facility] 60-74 MINUTES Katarina Hernandez MD [address] [place] [address] Referral ID Status Reason Start Date Expiration Date Visits Requested Visits Authorized [id number] Authorized PCP Requested Referral Auto-Generate d Referral 04/05/2022 04/05/2023 1 1 [facility] for referral (narrative)* Diagnostic Procedure Only (Routine) - Closed Specialty Diagnoses / Procedures Referred By Contac t Referred To Contact [facility] Diagnoses Encounter for screening mammogram for high-risk patient Procedures NORBERT SCREENING W ONIEL SCREENING DIGITAL BREAST TOMOSYNTHESIS BI SCREENING MAMMOGRAPHY BI 2-VIEW BREAST INC CAD Maria G Toney APRN.CNP [address] [place] [address] [facility] [address] [place] [address] Referral ID Status Reason Start Date Expiration Date V isits Requested Visits Authorized [id number] Closed Auto-Generate d Referral 01/01/2022 01/31/2023 1 1 [facility] for referral (narrative)* Diagnostic Procedure Only (Routine) - Authorized Specialty Diagnoses / Procedures Referred By Contac t Referred To Contact [facility] Diagnoses Abnormal mammogram Procedures US BREAST LTD RT US BREAST UNI REAL TIME WITH IMAGE LIMITED Jaylene Redmond MD [address] [place] [address] [facility] [address] [place] [phone] Referral ID Status Reason Start Date Expiration Date Visits Requested Visits Authorized [id number] Authorized Auto-Generat ed Referral 04/26/2022 05/26/2023 1 1 * Diagnostic Procedure Only (Routine) - Authorized Specialty Diagnoses / Procedures Referred By Danny t Referred To Contact [facility] Diagnoses Abnormal mammogram Procedures NORBERT DIAGNOSTIC RT DIAGNOSTIC MAMMOGRAPHY COMPUTER-AIDED DETCJ UNI Jaylene Redmond MD [address] [place] [address] [facility] [address] [place] [address] Referral ID Status Reason Start Date Expiration Date Visits Requested Visits Authorized [id number] Authorized Auto-Generat ed Referral 04/26/2022 05/26/2023 1 1 [facility] for referral (narrative)* Diagnostic Procedure Only (Routine) - Closed Specialty Diagnoses / Procedures Referred By Danny espinoza Referred To Contact [facility] Diagnoses Abnormal mammogram Procedures US BREAST LTD RT US BREAST UNI REAL TIME WITH IMAGE LIMITED Jaylene Redmond MD [address] [place] [address] [facility] [address] [place] [address] Referral ID Status Reason Start Date Expiration Date V isits Requested Visits Authorized [id number] Closed Auto-Generate d Referral 04/26/2022 05/26/2023 1 1 [facility] for referral (narrative)* Diagnostic Procedure Only (Routine) - Authorized Specialty Diagnoses / Procedures Referred By Contac t Referred To Contact [facility] Diagnoses Abnormal mammogram Procedures NORBERT STEREO BX BREAST RT BX BREAST W/DEVICE 1ST [facility] Katie Sierra MD [address] [place] [address] [facility] [address] [place] [phone] Referral ID Status Reason Start Date Expiration Date Visits Requested Visits Authorized [id number] Authorized Auto-Generat ed Referral 05/30/2022 06/29/2023 1 1 [facility] for referral (narrative)* Diagnostic Procedure Only (Routine) - Closed Specialty Diagnoses / Procedures Referred By Contac t Referred To Contact [facility] Diagnoses Abnormal mammogram Procedures NORBERT STEREO BX BREAST RT BX BREAST W/DEVICE 1ST [facility] Katie Sierra MD [address] [place] [address] [facility] [address] [place] [phone] Referral ID Status Reason Start Date Expiration Date V isits Requested Visits Authorized [id number] Closed Auto-Generate d Referral 05/30/2022 06/29/2023 1 1 T [facility] for referral (narrative)* Outpatient Procedure (Routine) - Pending Review Specialty Diagnoses / Procedures Referred By Contac t Referred To Contact [facility] Diagnoses Iron deficiency anemia due to chronic blood loss Abnormal uterine bleeding (AUB) Procedures INSERT INTRAUTERINE DEVICE LEVONORGESTREL IU 52MG 5 YR INSERT INTRAUTERINE DEVICE Jaylene Redmond MD [address] [place] [address] [facility] [address] [place] [address] Referral ID Status Reason Start Date Expiration Date Visits Requested Visits Authorized [id number] Pending Review Auto-Generat ed Referral 07/09/2022 07/09/2023 1 1 [facility] for referral (narrative)* Outpatient Procedure (Routine) - Pending Review Specialty Diagnoses / Procedures Referred By Danny espinoza Referred To Contact [facility] Diagnoses Abnormal uterine bleeding (AUB) Iron deficiency anemia due to chronic blood loss Procedures INSERT INTRAUTERINE DEVICE LEVONORGESTREL IU 52MG 5 YR INSERT INTRAUTERINE DEVICE Jaylnee Redmond MD [address] [place] [address] [place] [address] Referral ID Status Reason Start Date Expiration Date Visits Requested Visits Authorized [id number] Pending Review Auto-Generat ed Referral 07/29/2022 07/29/2023 1 1 [facility] for referral (narrative)* Outpatient Procedure (Routine) - Pending Review Specialty Diagnoses / Procedures Referred By Danny espinoza [facility] Diagnoses Muscle spasm Muscle twitch Muscle ache Family history of MS (multiple sclerosis) Procedures EMG(NEURO/NI) NERVE CONDUCTION STUDIES 9-10 STUDIES Ersamo Lal APRN.TURRET LATHE SET UP OPERATOR [address] [place] [address] [id number] Referral ID Status Reason Start Date Expiration Date Visits Requested Visits Authorized [id number] Pending Review Auto-Generat ed Referral 01/02/2023 01/03/2024 1 1 * Diagnostic Procedure Only (Routine) - Authorized Specialty Diagnoses / Procedures Referred By Danny espinoza Referred To Contact [facility] Diagnoses Lymphadenopathy, axillary Procedures US AXILLA ONLY RT US LMTD JOINT/OTH NONVASC XTR STRUX R-T W/IMG Erasmo Lal APRN.TURRET LATHE SET UP OPERATOR [address] [place] [address] [facility] [address] [place] [address] Referral ID Status Reason Start Date Expiration Date Visits Requested Visits Authorized [id number] Authorized Auto-Generat ed Referral 01/01/2023 01/31/2024 1 1 [facility] for referral (narrative)* Diagnostic Procedure Only (Routine) - Pending Review Specialty Diagnoses / Procedures Referred By Danny espinoza Referred To Contact [facility] Diagnoses Abnormal mammogram Procedures NORBERT DIAGNOSTIC RT DIAGNOSTIC MAMMOGRAPHY COMPUTER-AIDED DETCJ UNI Maria G Toney APRN.CNP [address] [place] [address] [facility] [address] [place] [phone] Referral ID Status Reason Start Date Expiration Date Visits Requested Visits Authorized [id number] Pending Review Auto-Generat ed Referral 01/10/2023 02/09/2024 1 1 [facility] for visit Narrative* Diagnostic Procedure Only (Routine) - Closed Specialty Diagnoses / Procedures Referred By Danny espinoza Referred To Contact [facility] Diagnoses Abnormal uterine bleeding (AUB) Iron deficiency anemia due to chronic blood loss Procedures PELVIC US WHI US PELVIC NONOBSTETRIC REAL-TIME IMAGE COMPLETE Katarina Hernandez MD [address] [place] [address] [facility] [address] [place] [address] Referral ID Status Reason Start Date Expiration Date V isits Requested Visits Authorized [id number] Closed Auto-Generate d Referral 04/05/2022 10/26/2022 1 1 [facility] for visit Narrative* Diagnostic Procedure Only (Routine) - Closed Specialty Diagnoses / Procedures Referred By Danny espinoza Referred To Contact [facility] Diagnoses Encounter for screening mammogram for high-risk patient Procedures NORBERT SCREENING W ONIEL SCREENING DIGITAL BREAST TOMOSYNTHESIS BI SCREENING MAMMOGRAPHY BI 2-VIEW BREAST INC CAD Maria G Toney APRN.TURRET LATHE SET UP OPERATOR [address] [place] [address] [facility] [address] [place] [address] Referral ID Status Reason Start Date Expiration Date V isits Requested Visits Authorized [id number] Closed Auto-Generate d Referral 01/01/2022 01/31/2023 1 [facility] Diagnostic Procedure Only (Routine) - Closed Specialty Diagnoses / Procedures Referred By Contac t Referred To Contact [facility] Diagnoses Abnormal mammogram Procedures NORBERT STEREO BX BREAST RT BX BREAST W/DEVICE 1ST LESION STEREOTACTIC GUID Katie Osuna MD [address] [place] [address] [facility] [address] [place] [phone] Referral ID Status Reason Start Date Expiration Date V isits Requested Visits Authorized [id number] Closed Auto-Generate d Referral 05/30/2022 06/29/2023 1 1 [facility] Reason for Referral Specialty Diagnoses / Procedures Referred By Contac t Referred To Contact Diagnoses Abnormal uterine bleeding (AUB) Iron deficiency anemia due to chronic blood loss Procedures CONSULT TO MINIMALLY INVASIVE GYNECOLOGIC SURGERY OFFICE/OUTPATIENT [facility] 60-74 MINUTES Jaylene Redmond MD [address] [place] [address] Referral ID Status Reason Start Date Expiration Date Visits Requested Visits Authorized [id number] Authorized PCP Requested Referral Auto-Generate d Referral 03/08/2022 03/08/2023 1 1 Specialty Diagnoses / Procedures Referred By Contac t Referred To Contact [facility] Diagnoses Fibrocystic breast changes of both breasts Increased risk of breast cancer Family history of breast cancer Procedures MRI BREAST WO/W IVCON BILATERAL MRI BREAST WITHOUT&WITH CONTRAST W/CAD BILATERAL Maria G Toney, KEYANNA.TURRET LATHE SET UP OPERATOR [address] [place] [address] [facility] Imaging Referral ID Status Reason Start Date Expiration Date Visits Requested Visits Authorized [id number] Pending Review Auto-Generat ed Referral 04/23/2023 05/22/2024 1 1 Specialty Diagnoses / Procedures Referred By Contac t Referred To Contact [facility] Diagnoses Smell disturbance Iron deficiency anemia due to chronic blood loss Family history of MS (multiple sclerosis) Muscle spasm Muscle twitch Muscle ache Motor neuron disease (HCC) Procedures MRI BRAIN WO IVCON MRI BRAIN BRAIN STEM W/O CONTRAST MATERIAL HaliErasmo, ORTHOPEDIC SPECIALIST.TURRET LATHE SET UP OPERATOR [address] [place] [address] [place] [id number] Referral ID Status Reason Start Date Expiration Date Visits Requested Visits Authorized [id number] Pending Review Auto-Generat ed Referral 12/24/2023 01/22/2025 1 1 Specialty Diagnoses / Procedures Referred By Contac t Referred To Contact Diagnoses Morbid obesity with BMI of 50.0-59.9, adult (HCC) Erasmo Lal, ORTHOPEDIC SPECIALIST.TURRET LATHE SET UP OPERATOR [address] [place] [address] Referral ID Status Reason Start Date Expiration Date V isits Requested Visits Authorized [id number] Authorized 12/24/2023 03/23/2024 1 1 Medications Administered Section Inactive Administered Medications - up to 3 most recent administrations Medication Order MAR Action Action Date Dose Rate Site lidocaine 1%-EPINEPHrine 1:100,000 injection X (OR/PROCEDURE) PRN, Starting on [place] 06/20/22 at 0957, Until 06/21/22 at 0415, Intraprocedure Given 06/20/2022 9:57 AM EDT 10 mL Breast, Right Summary Purpose Family History No Family History Records Found Advance Directives No Advanced Directives Records FoundNo Advanced Directives Records Found Additional Source Comments Source Comments (unrecognize d section and content) In the event this informatio n is protected by the Federal Confidentiality of Alcohol and Drug Abuse Patient Records regulations: The Federal rules restrict any use of the information to criminally investigate or prosecute any alcohol or drug abuse patient.[facility] the event this information is protected by the Federal Confidentiality of Alcohol and Drug Abuse Patient Records regulations: The Federal rules restrict any use of the information to criminally investigate or prosecute any alcohol or drug abuse patient.[facility] the event this information is protected by the Federal Confidentiality of Alcohol and Drug Abuse Patient Records regulations: The Federal rules restrict any use of the information to criminally investigate or prosecute any alcohol or drug abuse patient.[facility] the event this information is protected by the Federal Confidentiality of Alcohol and Drug Abuse Patient Records regulations: The Federal rules restrict any use of the information to criminally investigate or prosecute any alcohol or drug abuse patient.[facility] the event this information is protected by the Federal Confidentiality of Alcohol and Drug Abuse Patient Records regulations: The Federal rules restrict any use of the information to criminally investigate or prosecute any alcohol or drug abuse patient.[facility] the event this information is protected by the Federal Confidentiality of Alcohol and Drug Abuse Patient Records regulations: The Federal rules restrict any use of the information to criminally investigate or prosecute any alcohol or drug abuse patient.[facility] the event this information is protected by the Federal Confidentiality of Alcohol and Drug Abuse Patient Records regulations: The Federal rules restrict any use of the information to criminally investigate or prosecute any alcohol or drug abuse patient.[facility] the event this information is protected by the Federal Confidentiality of Alcohol and Drug Abuse Patient Records regulations: The Federal rules restrict any use of the information to criminally investigate or prosecute any alcohol or drug abuse patient.[facility] the event this information is protected by the Federal Confidentiality of Alcohol and Drug Abuse Patient Records regulations: The Federal rules restrict any use of the information to criminally investigate or prosecute any alcohol or drug abuse patient.[facility] the event this information is protected by the Federal Confidentiality of Alcohol and Drug Abuse Patient Records regulations: The Federal rules restrict any use of the information to criminally investigate or prosecute any alcohol or drug abuse patient.[facility] the event this information is protected by the Federal Confidentiality of Alcohol and Drug Abuse Patient Records regulations: The Federal rules restrict any use of the information to criminally investigate or prosecute any alcohol or drug abuse patient.[facility] the event this information is protected by the Federal Confidentiality of Alcohol and Drug Abuse Patient Records regulations: The Federal rules restrict any use of the information to criminally investigate or prosecute any alcohol or drug abuse patient.[facility] the event this information is protected by the Federal Confidentiality of Alcohol and Drug Abuse Patient Records regulations: The Federal rules restrict any use of the information to criminally investigate or prosecute any alcohol or drug abuse patient.[facility] Hospital[facility] the event this information is protected by the Federal Confidentiality of Alcohol and Drug Abuse Patient Records regulations: The Federal rules restrict any use of the information to criminally investigate or prosecute any alcohol or drug abuse patient.[facility] Hospital[facility] the event this information is protected by the Federal Confidentiality of Alcohol and Drug Abuse Patient Records regulations: The Federal rules restrict any use of the information to criminally investigate or prosecute any alcohol or drug abuse patient.[facility] Hospital[facility] the event this information is protected by the Federal Confidentiality of Alcohol and Drug Abuse Patient Records regulations: The Federal rules restrict any use of the information to criminally investigate or prosecute any alcohol or drug abuse patient.[facility] the event this information is protected by the Federal Confidentiality of Alcohol and Drug Abuse Patient Records regulations: The Federal rules restrict any use of the information to criminally investigate or prosecute any alcohol or drug abuse patient.[facility] the event this information is protected by the Federal Confidentiality of Alcohol and Drug Abuse Patient Records regulations: The Federal rules restrict any use of the information to criminally investigate or prosecute any alcohol or drug abuse patient.[facility] the event this information is protected by the Federal Confidentiality of Alcohol and Drug Abuse Patient Records regulations: The Federal rules restrict any use of the information to criminally investigate or prosecute any alcohol or drug abuse patient.[facility] Hospital[facility] the event this information is protected by the Federal Confidentiality of Alcohol and Drug Abuse Patient Records regulations: The Federal rules restrict any use of the information to criminally investigate or prosecute any alcohol or drug abuse patient.[facility] Hospital[facility] the event this information is protected by the Federal Confidentiality of Alcohol and Drug Abuse Patient Records regulations: The Federal rules restrict any use of the information to criminally investigate or prosecute any alcohol or drug abuse patient.[facility] the event this information is protected by the Federal Confidentiality of Alcohol and Drug Abuse Patient Records regulations: The Federal rules restrict any use of the information to criminally investigate or prosecute any alcohol or drug abuse patient.[facility] the event this information is protected by the Federal Confidentiality of Alcohol and Drug Abuse Patient Records regulations: The Federal rules restrict any use of the information to criminally investigate or prosecute any alcohol or drug abuse patient.[facility] the event this information is protected by the Federal Confidentiality of Alcohol and Drug Abuse Patient Records regulations: The Federal rules restrict any use of the information to criminally investigate or prosecute any alcohol or drug abuse patient.[facility] Hospital[facility] the event this information is protected by the Federal Confidentiality of Alcohol and Drug Abuse Patient Records regulations: The Federal rules restrict any use of the information to criminally investigate or prosecute any alcohol or drug abuse patient.[facility] Hospital[facility] the event this information is protected by the Federal Confidentiality of Alcohol and Drug Abuse Patient Records regulations: The Federal rules restrict any use of the information to criminally investigate or prosecute any alcohol or drug abuse patient.[facility] Hospital[facility] the event this information is protected by the Federal Confidentiality of Alcohol and Drug Abuse Patient Records regulations: The Federal rules restrict any use of the information to criminally investigate or prosecute any alcohol or drug abuse patient.[facility] Hospital[facility] the event this information is protected by the Federal Confidentiality of Alcohol and Drug Abuse Patient Records regulations: The Federal rules restrict any use of the information to criminally investigate or prosecute any alcohol or drug abuse patient.[facility] HospitalIn the event this information is protected by the Federal Confidentiality of Alcohol and Drug Abuse Patient Records regulations: The Federal rules restrict any use of the information to criminally investigate or prosecute any alcohol or drug abuse patient.[facility] HospitalIn the event this information is protected by the Federal Confidentiality of Alcohol and Drug Abuse Patient Records regulations: The Federal rules restrict any use of the information to criminally investigate or prosecute any alcohol or drug abuse patient.[facility] Hospital[facility] the event this information is protected by the Federal Confidentiality of Alcohol and Drug Abuse Patient Records regulations: The Federal rules restrict any use of the information to criminally investigate or prosecute any alcohol or drug abuse patient.[facility] the event this information is protected by the Federal Confidentiality of Alcohol and Drug Abuse Patient Records regulations: The Federal rules restrict any use of the information to criminally investigate or prosecute any alcohol or drug abuse patient.[facility]In the event this information is protected by the Federal Confidentiality of Alcohol and Drug Abuse Patient Records regulations: The Federal rules restrict any use of the information to criminally investigate or prosecute any alcohol or drug abuse patient.[facility] HospitalIn the event this information is protected by the Federal Confidentiality of Alcohol and Drug Abuse Patient Records regulations: The Federal rules restrict any use of the information to criminally investigate or prosecute any alcohol or drug abuse patient.[facility] HospitalIn the event this information is protected by the Federal Confidentiality of Alcohol and Drug Abuse Patient Records regulations: The Federal rules restrict any use of the information to criminally investigate or prosecute any alcohol or drug abuse patient.[facility] HospitalIn the event this information is protected by the Federal Confidentiality of Alcohol and Drug Abuse Patient Records regulations: The Federal rules restrict any use of the information to criminally investigate or prosecute any alcohol or drug abuse patient.[facility] HospitalIn the event this information is protected by the [facility][Note 3] Confidentiality of Alcohol and Drug Abuse Patient Records regulations: The Federal rules restrict any use of the information to criminally investigate or prosecute any alcohol or drug abuse patient.[facility] HospitalIn the event this information is protected by the Federal Confidentiality of Alcohol and Drug Abuse Patient Records regulations: The Federal rules restrict any use of the information to criminally investigate or prosecute any alcohol or drug abuse patient.[facility] Care Teams (unrecognized sec tion and content) Electro Mechanical Technician Relationship Specialty Start Date End Date Leonard Hernández, DO [address] [place] [address] PCP - General Family Practice 08/17/14 Electro Mechanical Technician Relationship Specialty Start Date End Date Leonard Hernández, [address] [place] [address] PCP - General Family Practice 08/17/14 Electro Mechanical Technician Relationship Specialty Start Date End Date Leonard Hernández, [address] [place] [address] PCP - General Family Practice 08/17/14 Electro Mechanical Technician Relationship Specialty Start Date End Date Leonard Hernández, DO [address] [place] [address] PCP - General Family Practice 08/17/14 Electro Mechanical Technician Relationship Specialty Start Date End Date Leonard Hernández, DO [address] [place] [address] PCP - General Family Practice 08/17/14 Electro Mechanical Technician Relationship Specialty Start Date End Date Leonard Hernández, DO [address] [place] [address] PCP - General Family Practice 08/17/14 Electro Mechanical Technician Relationship Specialty Start Date End Date Leonard Hernández, DO [address] [place] [address] PCP - General Family Practice 08/17/14 Electro Mechanical Technician Relationship Specialty Start Date End Date Leonard Hernández, DO [address] [place] [address] PCP - General Family Practice 08/17/14 Electro Mechanical Technician Relationship Specialty Start Date End Date Leonard Hernández, DO [address] [place] [address] PCP - General Family Practice 08/17/14 Electro Mechanical Technician Relationship Specialty Start Date End Date Leonard Hernández, DO [address] [place] [address] PCP - General Family Practice 08/17/14 Electro Mechanical Technician Relationship Specialty Start Date End Date Leonard Hernández, DO [address] [place] [address] PCP - General Family Practice 08/17/14 Electro Mechanical Technician Relationship Specialty Start Date End Date Leonard Hernández, DO [address] [place] [address] PCP - General Family Practice 08/17/14 Electro Mechanical Technician Relationship Specialty Start Date End Date Leonard Hernández, DO [address] [place] [address] PCP - General Family Practice 08/17/14 Electro Mechanical Technician Relationship Specialty Start Date End Date Leonard Hernández, DO [address] [place] [address] PCP - General Family Practice 08/17/14 Electro Mechanical Technician Relationship Specialty Start Date End Date Leonard Hernández, DO [address] [place] [address] PCP - General Family Medicine 08/17/14 Electro Mechanical Technician Relationship Specialty Start Date End Date Leonard Hernández, DO [address] [place] [address] PCP - General Family Medicine 08/17/14 Electro Mechanical Technician Relationship Specialty Start Date End Date Leonard Hernández, DO [address] [place] [address] PCP - General Family Medicine 08/17/14 Electro Mechanical Technician Relationship Specialty Start Date End Date Leonard Hernández, DO [address] [place] [address] PCP - General Family Medicine 08/17/14 Electro Mechanical Technician Relationship Specialty Start Date End Date Leonard Hernández, DO [address] [place] [address] PCP - General Family Medicine 08/17/14 Electro Mechanical Technician Relationship Specialty Start Date End Date Leonard Hernández, DO [address] [place] [address] PCP - General Family Medicine 08/17/14 Electro Mechanical Technician Relationship Specialty Start Date End Date Leonard Hernández, DO [address] [place] [address] PCP - General Family Medicine 08/17/14 Electro Mechanical Technician Relationship Specialty Start Date End Date Leonard Hernández DO [address] [place] [address] PCP - General Family Medicine 08/17/14 Electro Mechanical Technician Relationship Specialty Start Date End Date Leonard Hernández DO [address] [place] [address] PCP - General Family Medicine 08/17/14 Electro Mechanical Technician Relationship Specialty Start Date End Date Leonard Hernández DO [address] [place] [address] PCP - General Family Medicine 08/17/14 Electro Mechanical Technician Relationship Specialty Start Date End Date Leonard Hernández DO [address] [place] [address] PCP - General Family Medicine 08/17/14 Electro Mechanical Technician Relationship Specialty Start Date End Date Leonard Hernández DO [address] [place] [address] PCP - General Family Medicine 08/17/14 Electro Mechanical Technician Relationship Specialty Start Date End Date Leonard Hernández DO [address] [facility] [place] [address] PCP - General Family Medicine 08/17/14 Electro Mechanical Technician Relationship Specialty Start Date End Date Leonard Hrenández DO [address] [facility] [place] [address] PCP - General Family Medicine 08/17/14 Electro Mechanical Technician Relationship Specialty Start Date End Date Leonard Hernández DO [address] [place] [address] PCP - General Family Medicine 08/17/14 Electro Mechanical Technician Relationship Specialty Start Date End Date Leonard Hernández DO [address] [place] [address] PCP - General Family Medicine 08/17/14 Reason for Visit (unrecogniz ed section and content) Reason Comments Menstrual Problem Reason Comments Anemia Reason Comments Results Reason Comments New Patient AUB Specialty Diagnoses / Procedures Referred By Contac t Referred To Contact Diagnoses Abnormal uterine bleeding (AUB) Iron deficiency anemia due to chronic blood loss Procedures CONSULT TO MINIMALLY INVASIVE GYNECOLOGIC SURGERY OFFICE/OUTPATIENT NEW HIGH MDM 60-74 MINUTES Jaylene Redmond MD [address] [place] [address] Referral ID Status Reason Start Date Expiration Date V isits Requested Visits Authorized [id number] Closed PCP Requested Referral Auto-Generated Referral 03/08/2022 03/08/2023 1 1 Reason Comments Orders Reason Comments Question Reason Comments Radiology Mammogram Specialty Diagnoses / Procedures Referred By Contac t Referred To Contact [facility] Diagnoses Abnormal mammogram Procedures NORBERT DIAGNOSTIC RT DIAGNOSTIC MAMMOGRAPHY COMPUTER-AIDED DETCJ [facility] Jaylene Redmond MD [address] [place] [address] [facility] Imaging [address] [place] [address] Referral ID Status Reason Start Date Expiration Date V isits Requested Visits Authorized [id number] Closed Auto-Generate d Referral 04/26/2022 05/26/2023 1 1 Reason Comments Radio Imaging Study Comments Reason Comments Vaginal Bleeding Reason Comments Muscle Aches Lump Right armpit Reason Comments Patient Update Appointment Reason Comments Eye Problem Eyes are watery, swo llen and hurt x 1 day Reason Comments Pain, Throat Pt reported throat p ain, fatigue, x 5 days. Reason Comments Appointment Reason Comments Established Patient Annual breast exam w ith mammogram; no breast concerns at this time Reason Comments Abdominal Pain Reason Comments Radiology US Specialty Diagnoses / Procedures Referred By Contac t Referred To Contact US IMAGING Diagnoses Pain of upper abdomen Procedures US ABD RIGHT UPPER QUADRANT US ABDOMINAL REAL TIME W/IMAGE LIMITED Ameya Hauser APRN.TURRET LATHE SET UP OPERATOR [address] [place] [address] [place] [address] Referral ID Status Reason Start Date Expiration Date V isits Requested Visits Authorized [id number] Closed Auto-Generate d Referral 10/06/2023 11/04/2024 1 1 Reason Comments phantom smell X couple weeks Reason Comments Insurance Authorization INFORMATION SOURCE (unrecogn ized section and content) DATE CREATED AUTHOR AUTHOR'S ORGANIZ ATION 11/11/2023 [facility] oundation ([place]) FOR RECORDS PERTAINING TO PATIENTS WHO ARE OR HAVE BEEN ENROLLED IN A CHEMICAL DEPENDENCY/SUBSTANCEABUSE PROGRAM, SOME INFORMATION MAY BE OMITTED. This clinical summary was aggregated from multiple sources. Caution should be exercised in using it in the provision of clinical care. This summary normalizes information from multiple sources, and as a consequence, information in this document may materially change the coding, format and clinical context of patient data. In addition, data may be omitted in some cases. CLINICAL DECISIONS SHOULD BE BASED ON THE PRIMARY CLINICAL RECORDS. [employer] provides no warranty or guarantee of the accuracy or completeness of information in this document.
== END | disposition home or self-care (01) ==
LOC: RAD 12:42
PROVIDERS: PCP Student in an Organized Health Care Education/Training Program; Referring Provider Specialist; Visit Provider Specialist
DX: T83.32XA Displacement of intrauterine contraceptive device, initial encounter (principal)
CPT/HCPCS: 74018

== ENCOUNTER 2024-03-24 13:00 | Outpatient (CLI) | payer BC, SELFPAY ==
[2024-03-24 13:19] VITALS: BP 142/82; PULSE 82; RESP 16; TEMP 36; O2SAT 100
[2024-03-24] MEDS: 0.9% NaCl Peripheral Flush Adult/Peds IV (13:22)
[2024-03-24] MEDS: Ferric Carboxymaltose (Injectafer) 750 MG in 0.9% NaCl 250 ML 795 MG IV (13:31)
[2024-03-24] MEDS: 0.9% NaCl IVPB Med Flush (250 mL) 15 ML IV (13:31)
[2024-03-24 14:32] VITALS: BP 140/82; PULSE 86; RESP 16
== END 2024-03-24 23:59 | disposition home or self-care (01) ==
LOC: MEDOUTP 13:00
PROVIDERS: PCP Student in an Organized Health Care Education/Training Program; Referring Provider Student in an Organized Health Care Education/Training Program; Visit Provider Student in an Organized Health Care Education/Training Program
DX: D50.9 Iron deficiency anemia, unspecified (principal)
CPT/HCPCS: 96365; J1439; J7050; A4216

== ENCOUNTER 2024-03-31 13:16 | Outpatient (CLI) | payer BC, SELFPAY ==
[2024-03-31 13:22] VITALS: BP 138/81; PULSE 94; RESP 16; TEMP 36.1
[2024-03-31] MEDS: 0.9% NaCl IVPB Med Flush (250 mL) 15 ML IV (13:25)
[2024-03-31] MEDS: 0.9% NaCl Peripheral Flush Adult/Peds IV (13:25)
[2024-03-31] MEDS: Ferric Carboxymaltose (Injectafer) 750 MG in 0.9% NaCl 250 ML 795 MG IV (13:39)
[2024-03-31 14:07] VITALS: BP 125/70; PULSE 80; RESP 16
== END 2024-03-31 23:59 | disposition home or self-care (01) ==
LOC: MEDOUTP 13:16
PROVIDERS: PCP Student in an Organized Health Care Education/Training Program; Referring Provider Student in an Organized Health Care Education/Training Program; Visit Provider Student in an Organized Health Care Education/Training Program
DX: D50.9 Iron deficiency anemia, unspecified (principal)
CPT/HCPCS: 96365; J1439; J7050; A4216

== ENCOUNTER 2024-04-07 13:06 | Outpatient (CLI) | payer BC, SELFPAY ==
[2024-04-07 13:16] VITALS: BP 143/85; PULSE 84; RESP 16; TEMP 35.9; O2SAT 96
[2024-04-07] MEDS: 0.9% NaCl Peripheral Flush Adult/Peds IV (13:21)
[2024-04-07] MEDS: 0.9% NaCl IVPB Med Flush (250 mL) 15 ML IV (13:27)
[2024-04-07] MEDS: Ferric Carboxymaltose (Injectafer) 750 MG in 0.9% NaCl 250 ML 795 MG IV (13:28)
[2024-04-07 13:57] VITALS: BP 158/80; PULSE 69
== END 2024-04-07 23:59 | disposition home or self-care (01) ==
LOC: MEDOUTP 13:06
PROVIDERS: PCP Student in an Organized Health Care Education/Training Program; Referring Provider Student in an Organized Health Care Education/Training Program; Visit Provider Student in an Organized Health Care Education/Training Program
DX: D50.9 Iron deficiency anemia, unspecified (principal)
CPT/HCPCS: 96365; J1439; J7050; A4216

== ENCOUNTER 2024-04-14 13:15 | Outpatient (CLI) | payer BC, SELFPAY ==
[2024-04-14 13:30] VITALS: BP 138/83; PULSE 79; RESP 16; TEMP 35.7; O2SAT 100
[2024-04-14] MEDS: 0.9% NaCl Peripheral Flush Adult/Peds IV (13:32)
[2024-04-14] MEDS: 0.9% NaCl IVPB Med Flush (250 mL) 15 ML IV (13:32)
[2024-04-14] MEDS: Ferric Carboxymaltose (Injectafer) 750 MG in 0.9% NaCl 250 ML 795 MG IV (13:52)
[2024-04-14 14:17] VITALS: BP 137/84; PULSE 78; RESP 16; TEMP 35.5; O2SAT 99
== END 2024-04-14 23:59 | disposition home or self-care (01) ==
LOC: MEDOUTP 13:15
PROVIDERS: PCP Student in an Organized Health Care Education/Training Program; Referring Provider Student in an Organized Health Care Education/Training Program; Visit Provider Student in an Organized Health Care Education/Training Program
DX: D50.9 Iron deficiency anemia, unspecified (principal)
CPT/HCPCS: 96365; J1439; J7050; A4216

== ENCOUNTER → 2024-04-16 | Outpatient (CLI) | payer BC, SELFPAY ==
--- NOTE | 2024-04-16 12:57 | US_ITS ---
EXAM: US RETROPERITONEAL LIMITED, RENAL CLINICAL INDICATION: Other specified disorders of kidney and ureter -- F/U RT KIDNEY NODLUE SEEN ON [facility] OUTSIDE FILMS NOT AVAILABLE TECHNIQUE: Limited grayscale and color Doppler sonographic evaluation of the retroperitoneum was performed. COMPARISON: No relevant prior studies available. FINDINGS: RIGHT KIDNEY: Right kidney measures 12.3 cm in length. 16 mm parapelvic renal cyst. No hydronephrosis. No shadowing calculus. No perinephric collection is demonstrated. LEFT KIDNEY: Left kidney measures 12.4 cm in length. 14 mm cortical cyst. No hydronephrosis. No shadowing calculus. No perinephric collection is demonstrated. BLADDER: Urinary bladder is normal. US/Kidney and Bladder IMPRESSION: Normal-sized kidneys. Bilateral renal cysts. No specific follow-up indicated. Electronically Signed: Terrell Rosenthal MD at 17:13 EDT ,
== END | disposition home or self-care (01) ==
LOC: US 12:47
PROVIDERS: PCP Student in an Organized Health Care Education/Training Program; Referring Provider Student in an Organized Health Care Education/Training Program; Visit Provider Student in an Organized Health Care Education/Training Program
DX: N28.89 Other specified disorders of kidney and ureter (principal)
CPT/HCPCS: 76770

== ENCOUNTER 2024-04-21 13:04 | Outpatient (CLI) | payer BC, SELFPAY ==
[2024-04-21 13:29] VITALS: BP 137/86; PULSE 89; RESP 14; TEMP 36.1; O2SAT 99
[2024-04-21] MEDS: Ferric Carboxymaltose (Injectafer) 750 MG in 0.9% NaCl 250 ML 795 MG IV (13:37)
[2024-04-21] MEDS: 0.9% NaCl IVPB Med Flush (250 mL) 15 ML IV (13:37)
[2024-04-21 14:02] VITALS: BP 134/90; PULSE 83; RESP 14; TEMP 36.1; O2SAT 98
== END 2024-04-21 23:59 | disposition home or self-care (01) ==
LOC: MEDOUTP 13:04
PROVIDERS: PCP Student in an Organized Health Care Education/Training Program; Referring Provider Student in an Organized Health Care Education/Training Program; Visit Provider Student in an Organized Health Care Education/Training Program
DX: D50.9 Iron deficiency anemia, unspecified (principal)
CPT/HCPCS: 96365; J1439; J7050; A4216

== ENCOUNTER → 2024-07-14 | Outpatient (CLI) | payer BC, SELFPAY ==
--- NOTE | 2024-07-14 09:34 | US_ITS ---
STUDY: ABDOMINAL ULTRASOUND - RIGHT UPPER QUADRANT; ELASTOGRAPHY REASON FOR VISIT: Female, 43 years old. Fatty infiltration of the liver. TECHNIQUE: Ultrasound evaluation of the right upper quadrant was performed with real-time and static dye-scale imaging. Point quantification shear wave elastography was performed (Synac[employer]). TECHNICAL QUALITY: Adequate. COMPARISON: None. FINDINGS: Liver: The liver is enlarged and measures 20.4 cm. There is a heterogeneous echogenicity of the liver. The bile ducts are within normal limits. There is hepatic color flow. The direction of portal flow is hepatopetal. There is a 7 mm x 9 mm x 9 mm echogenic nodule in the dome of the right lobe of the liver suggestive of hemangioma. There is also evidence of a 1.6 cm x 1.7 cm x 1.9 cm hypoechoic nodule in the peripheral aspect of the right lobe of the liver. Correlation with CT scan is recommended. Median liver stiffness measured 4.5 kPa. Gallbladder: Normal distended gallbladder. The gallbladder wall measures 1.4 mm. There is a negative sonographic Anaya''s sign. There is no pericholecystic fluid. There is a solitary echogenic gallstone within the gallbladder. Common Bile Duct (C.B.D.): The common bile duct measures 2.9 mm. Pancreas: There is normal echogenicity of the visualized pancreas. There is no demonstrated pancreatic mass or cyst. Right Kidney: Normal size of the right kidney. The right kidney measures 12.7 cm x 5.8 cm x 4.9 cm. Normal renal cortex. The right cortex measures 1 cm. There is a 9 mm x 8 mm x 7 mm cyst in upper pole. There is no right hydronephrosis. US/ABD Limited w/ Elastography IMPRESSION: 1. Liver stiffness measures 4.5 kPa compatible with F0-F1 (Normal to mild liver fibrosis) Metavir score. 2. 1.6 cm x 1.7 cm x 1.9 cm hypoechoic nodule in the peripheral aspect of the right lobe of the liver. Correlation with CT scans recommended. Findings suggestive of a 7 mm x 9 mm x 9 mm hemangioma in the dome of the right lobe of the liver. Electronically Signed: Joaquin Hartman MD at 9:39 EDT ,
== END | disposition home or self-care (01) ==
LOC: US 09:32
PROVIDERS: PCP Student in an Organized Health Care Education/Training Program; Referring Provider Student in an Organized Health Care Education/Training Program; Visit Provider Student in an Organized Health Care Education/Training Program
DX: K76.0 Fatty (change of) liver, not elsewhere classified (principal)
CPT/HCPCS: 76705; 76981